=== PATIENT | female | born 1960 | race Caucasian/White ===

== ENCOUNTER 2019-03-31 17:09 | Emergency (ER) | payer OTHER, SELFPAY ==
[2019-03-31 17:21] VITALS: BP 138/62; PULSE 77; RESP 16; TEMP 36.4; O2SAT 100
--- NOTE | 2019-03-31 17:43 | ED.URI ---
HPI - URI/Sore Throat General Chief Complaint: Upper Respiratory Infection Stated Complaint: Back Pain Time Seen by Provider: 03/31/19 17:43 Source: patient Mode of arrival: ambulatory Limitations: no limitations History of Present Illness HPI Narrative: Carrie Rooney is a 58 yo female with a prior history of COPD, comes to the [facility] care with complaints of a sharp back pain when twisting, runny nose, and chills and general fatigue that started last night Related Data Home Medications Medication Instructions Recorded Confirmed albuterol sulfate 2 puff INHALATION QID PRN 03/31/19 03/31/19 Allergies Allergy/AdvReac Type Severity Reaction Status Date / Time No Known Allergies Allergy Verified 03/31/19 17:26 Review of Systems Review of Systems: Narrative: CONSTITUTIONAL: Denies fever, chills, sweats. Fatigue EYES: Denies visual changes, redness, discharge. ENT: Has rhinorrhea, has congestion, no sore throat, no otalgia. CARDIOVASCULAR: Denies chest pain, palpitations, edema. RESPIRATORY: Denies dyspnea, wheezing, cough GASTROINTESTINAL: Denies abdominal pain, nausea, vomiting, diarrhea. GENITOURINARY: Denies dysuria, hematuria, abnormal discharge SKIN: Denies rash or itching. MUSCULOSKELETAL: Has acute back pain, no joint pain, or no myalgia. NEUROLOGIC: Denies numbness, or focal weakness. PSYCHIATRIC: Denies anxiety or depression. PMFSH Past Medical History Medical History Anxiety Arthritis Carpal tunnel syndrome, left COPD (chronic obstructive pulmonary disease) Depression Eczema Hx of breast cancer Hx of migraines Peripheral neuropathy Pneumonia Psoriasis Surgical History Surgical History History of bladder surgery Bladder tied up x4 History of carpal tunnel release lt History of hysterectomy History of lumpectomy Hx of cardiac cath Hx of right knee surgery Social History Social History Smoking status: Current every day smoker Gender identity (if verbalized by the patient): Female Comments At time of signature, I agree with nursing past medical, surgical, social and family history. There is no relevant family history pertinent to the presenting complaint. Exam Narrative: Exam Narrative: GENERAL: This is a well-nourished, well-developed patient, in no moderate distress. HEAD: normocephalic, atraumatic. EYES: Sclera clear/white. Vision is grossly intact. EARS: External ears normal, auditory canals clear and without drainage, TMs normal without perforation. Hearing grossly intact. NOSE: External nose normal with nasal discharge, nares with redness, no rhinorrhea. THROAT: Mucous membranes moist, posterior pharynx erythema NECK: Neck supple, non-tender without lymphadenopathy, CARDIOVASCULAR: Regular rate and rhythm without murmurs, gallops, or rubs. RESPIRATORY: Coarse to auscultation. Breath sounds equal bilaterally. No wheezes, rales, or rhonchi. GASTROINTESTINAL: Abdomen soft, non-tender, SKIN: warm, intact with no suspicious lesions or rash, good texture and turgor. NEURO: awake, alert, and oriented to person, place and time. There were no obvious focal neurologic abnormalities. Steady gait EXTREMITIES: Normal range of motion. No edema. BACK: Nontender without deformity or crepitance. Pain between shoulder blades when moves left to right Course Course Emergency Course: Flu swab negative Started on Flexeril for back; Mucinex and Flonase for nasal drainage; ibuprofen for body aches Patient to rest and hydrate over the weekend Vital Signs Vital signs: Vital Signs Temperature 97.5 F L 03/31/19 17:21 Pulse Rate 77 03/31/19 17:21 Respiratory Rate 16 03/31/19 17:21 Blood Pressure 138/62 03/31/19 17:21 Pulse Oximetry 100 03/31/19 17:21 Temperature 97.5 F L 03/31/19 17:21 Pulse Rate 77 02/0
== END 2019-03-31 18:01 | disposition home or self-care (01) ==
PROVIDERS: Emergency Provider Nurse Practitioner; PCP Physician Assistant
DX: M54.6 Pain in thoracic spine (principal); J06.9 Acute upper respiratory infection, unspecified; M19.90 Unspecified osteoarthritis, unspecified site; J44.9 Chronic obstructive pulmonary disease, unspecified; Z85.3 Personal history of malignant neoplasm of breast; G62.9 Polyneuropathy, unspecified
CPT/HCPCS: 87804; 99213; G0463

== ENCOUNTER 2020-03-26 09:55 | Emergency (ER) | payer OTHER, SELFPAY ==
--- NOTE | 2020-03-26 10:08 | ED.URI ---
HPI - URI/Sore Throat General Chief Complaint: Upper Respiratory Infection Stated Complaint: Sinus Headache/Nausea/Cough/Copd Time Seen by Provider: 03/26/20 10:00 Source: patient and RN notes reviewed Mode of arrival: ambulatory Limitations: no limitations Related Data Home Medications Medication Instructions Recorded Confirmed albuterol sulfate 2 puff INHALATION QID PRN 03/31/19 03/31/19 Allergies Allergy/AdvReac Type Severity Reaction Status Date / Time No Known Allergies Allergy Verified 03/31/19 17:26 Review of Systems Review of Systems: All systems reviewed & are unremarkable except as noted in HPI and below (10 point system review) [facility] Past Medical History Medical History Anxiety Arthritis Carpal tunnel syndrome, left COPD (chronic obstructive pulmonary disease) Depression Eczema Hx of breast cancer Hx of migraines Peripheral neuropathy Pneumonia Psoriasis Surgical History Surgical History History of bladder surgery Bladder tied up x4 History of carpal tunnel release lt History of hysterectomy History of lumpectomy Hx of cardiac cath Hx of right knee surgery Social History Social History Smoking status: Current every day smoker Gender identity (if verbalized by the patient): Female Exam Narrative: Exam Narrative: GENERAL: This is a well-nourished, well-developed patient, in no apparent distress. HEAD: normocephalic, atraumatic. EYES: PERRL. Sclera clear/white. Vision is grossly intact. EARS: External ears normal, auditory canals clear and without drainage, TMs normal without perforation. Hearing grossly intact. NOSE: External nose normal with no obvious nasal discharge, nares without redness, no rhinorrhea. THROAT: Mucous membranes moist, posterior pharynx clear. NECK: Neck supple, non-tender without lymphadenopathy, masses or thyromegaly. CARDIOVASCULAR: Regular rate and rhythm without murmurs, gallops, or rubs. RESPIRATORY: Clear to auscultation. Breath sounds equal bilaterally. No wheezes, rales, or rhonchi. GASTROINTESTINAL: Abdomen soft, non-tender, nondistended. Bowel sounds are active. No hepato-splenomegaly, or palpable masses. No guarding. SKIN: warm, intact with no suspicious lesions or rash, good texture and turgor. NEURO: awake, alert, and oriented to person, place and time. There were no obvious focal neurologic abnormalities. Steady gait EXTREMITIES: Normal range of motion. No edema. No calf tenderness. Negative Homans sign bilaterally. BACK: Nontender without deformity or crepitance. No flank tenderness. MDM - URI/Sore Throat Differential Diagnosis Differential diagnosis: Likely upper respiratory infection, sinusitis, influenza and pharyngitis Discharge Plan Discharge Patient Disposition: Home, Self-Care Condition: Stable Instructions: Antibiotic Form Prescriptions: No Action albuterol sulfate 90 mcg/actuation Hfa Aerosol Inhaler 2 puff INHALATION QID PRN (Reason: Shortness Of Breath) RF: 0 pseudoephedrine-guaifenesin [Mucinex D] 60-600 mg tablet extended release 12 hr 1 tablet PO BID PRN (Reason: cold symptoms) Qty: 30 RF: 0 QNASL 80 mcg/actuation HFA aerosol inhaler 2 spray NASAL DAILY Qty: 10.6 RF: 0 cyclobenzaprine 10 mg tablet 10 mg PO TID PRN (Reason: muscle spasm) Qty: 20 RF: 0 Follow-up/Referrals: UNKNOWN,DOCTOR [Primary Care Provider] -
--- NOTE | 2020-03-26 10:08 | PC.NURSE ---
1st attempt to call, no answer.
--- NOTE | 2020-03-26 10:10 | PC.NURSE ---
2nd attempt to contact, no answer.
== END 2020-03-26 10:14 | disposition left against medical advice (07) ==
DX: Z53.21 Procedure and treatment not carried out due to patient leaving prior to being seen by health care provider (principal)
CPT/HCPCS: 99199

== ENCOUNTER 2021-09-20 17:01 | Emergency (ER) | payer OTHER, SELFPAY ==
--- NOTE | ~2021-09-20 | XR_ITS ---
EXAM: XR foot RT min 3V DATE: 09/20/2021 17:45 HISTORY: rt dorsal foot pain s/p hitting on chair this morn . COMPARISON: None available. FINDINGS: Decreased mineralization. No fracture or dislocation. No lytic or blastic lesion. Joint sp aces are maintained. No erosion or periosteal change. Soft tissues within normal limits. IMPRESSION: No acute osseous finding in the right foot. Reviewed, dictated and finalized at location K.
--- NOTE | 2021-09-20 17:03 | ED.LOWEXIN ---
HPI - Extremity Injury (Lower) General Stated Complaint: right foot pain Time Seen by Provider: 09/20/21 17:03 Source: patient Mode of arrival: ambulatory Limitations: no limitations History of Present Illness HPI Narrative: Ms. Rooney is a 61-year-old female patient presenting to the clinic today with complaints of right foot pain. She reports that she was running with her puppy this morning and hit her foot against a heavy recliner. Reports pain to the top of her foot. Rates the pain a 10 out of 10 currently and is unable to walk on her foot. She has localized swelling to the dorsal foot. Related Data Home Medications Medication Instructions Recorded Confirmed albuterol sulfate 90 mcg/actuation 2 puff inhalation QID PRN 03/31/19 03/31/19 aerosol inhaler Shortness Of Breath amlodipine 5 mg tablet mg 09/20/21 isosorbide mononitrate 30 mg mg PO 09/20/21 tablet,extended release 24 hr nicotine 21 mg/24 hr daily 09/20/21 transdermal patch nitroglycerin 0.3 mg sublingual mg 09/20/21 tablet Allergies Allergy/AdvReac Type Severity Reaction Status Date / Time No Known Allergies Allergy Verified 03/31/19 17:26 Review of Systems Review of Systems: Pertinent positives per HPI. Patient denies any fever, chills, rash, headache, visual changes, dizziness, cough, runny nose, sore throat, shortness of breath, chest pain, palpitations, nausea, vomiting, diarrhea, constipation, abdominal pain, or any urinary issues. [facility] Past Medical History Medical History (Updated 09/20/21 @ 18:04 by Henrik Vásquez APRN) Anxiety Arthritis Carpal tunnel syndrome, left COPD (chronic obstructive pulmonary disease) Depression Eczema Hx of breast cancer Hx of migraines Peripheral neuropathy Pneumonia Psoriasis Surgical History Surgical History History of bladder surgery Bladder tied up x4 History of carpal tunnel release lt History of hysterectomy History of lumpectomy Hx of cardiac cath Hx of right knee surgery Social History Social History Smoking status: Current every day smoker Gender identity (if verbalized by the patient): Female Comments At the time of my signature, I reviewed and agree with the nursing past medical, surgical, social, and family history. There is no relevant family history pertinent to the patient complaint. Exam Narrative: General: Well-developed, well nourished, in no apparent distress Head: Normocephalic, atraumatic. Cardio: Regular rate and rhythm, s1 and s2 normal, no murmur appreciated. Resp: Clear to auscultation bilaterally, no rhonchi, rales, wheezing or rubs. Musculoskeletal: No deformity, swelling to the proximal dorsal foot, tender to palpation, pain with flexion and extension of her foot and wiggling her toes, grossly normal range of motion, muscle strength strong and equal, peripheral pulse strong, no cyanosis, normal gait and station Course Course Emergency Course: Portions of this record may have been created with voice recognition software. Level of Care: Express Care Visit Vital Signs Vital signs: Vital signs reviewed MDM - Extremity Injury (Lower) MDM Narrative Medical decision making narrative: At the time of visit patient is resting comfortably on the exam table. X-ray was performed and was negative for any fracture or malalignment of the right foot. I suspect the patient has a foot contusion/soft tissue injury. Supportive measures were discussed with the patient and she voiced understanding of discharge instructions and agrees to the treatment plan. Differential Diagnosis Differential diagnosis: Likely other (Foot fracture, foot contusion, foot soft tissue injury) Imaging Data Attestation: I personally reviewed and interpreted this imaging study as follows: My impression: Negative for fracture or malalignment of th
[2021-09-20 17:13] VITALS: BP 131/69; PULSE 78; RESP 18; TEMP 36.2; O2SAT 100
== END 2021-09-20 18:06 | disposition home or self-care (01) ==
PROVIDERS: Emergency Provider Nurse Practitioner Family
DX: S90.31XA Contusion of right foot, initial encounter (principal); W22.03XA Walked into furniture, initial encounter; M19.90 Unspecified osteoarthritis, unspecified site; J44.9 Chronic obstructive pulmonary disease, unspecified; G62.9 Polyneuropathy, unspecified; Z85.3 Personal history of malignant neoplasm of breast; F17.200 Nicotine dependence, unspecified, uncomplicated
CPT/HCPCS: 73630; 99213; G0463

== ENCOUNTER 2021-11-10 10:33 | Emergency (ER) | payer OTHER, SELFPAY ==
[2021-11-10 10:43] VITALS: BP 154/67; PULSE 63; RESP 16; TEMP 36.8; O2SAT 99
--- NOTE | 2021-11-10 10:55 | ED.NAVMDI ---
HPI - Nausea/Vomiting/Diarrhea General Chief complaint: Nausea/Vomiting/Diarrhea Stated complaint: Mcintyre/n/v/d Time Seen by Provider: 11/10/21 10:55 Source: patient, RN notes reviewed and old records reviewed Mode of arrival: ambulatory Limitations: no limitations History of Present Illness HPI Narrative: 61-year-old female presents to the [facility] with complaints of headache, nausea, vomiting and diarrhea as well as epigastric and right upper quadrant abdominal pain since Tuesday. Related Data Home Medications Medication Instructions Recorded Confirmed albuterol sulfate 90 mcg/actuation 2 puff inhalation QID PRN 03/31/19 11/10/21 aerosol inhaler Shortness Of Breath amlodipine 5 mg tablet 5 mg PO DAILY 09/20/21 11/10/21 isosorbide mononitrate 30 mg 30 mg PO DAILY 09/20/21 11/10/21 tablet,extended release 24 hr nicotine 21 mg/24 hr daily 21 mg transdermal DAILY 09/20/21 11/10/21 transdermal patch nitroglycerin 0.3 mg sublingual 0.3 mg sublingual PRN PRN Chest 09/20/21 11/10/21 tablet Pain fluticasone propionate 50 2 spray intranasal DAILY 11/10/21 11/10/21 mcg/actuation nasal spray,suspension Allergies Allergy/AdvReac Type Severity Reaction Status Date / Time No Known Allergies Allergy Verified 11/10/21 10:56 Review of Systems Review of Systems: All systems reviewed & are unremarkable except as noted in HPI and below Constitutional: Constitutional: Reports no additional constitutional complaints, Denies chills and Denies fever(s) Eyes: Eyes: Reports no additional eye complaints ENT: Reports system reviewed and no additional complaints, except as documented Cardiovascular: Cardiovascular: Reports no additional cardiovascular complaints Respiratory: Respiratory: Reports no additional respiratory complaints Gastrointestinal: Gastrointestinal: Reports as per HPI, Reports abdominal pain, Reports diarrhea, Reports nausea and Reports vomiting Musculoskeletal: Musculoskeletal: Reports no additional musculoskeletal complaints Integumentary/Breasts: Skin/Breast: Reports system reviewed and no additional complaints, except as docu Neurologic: Reports system reviewed and no additional complaints, except as documented Psychiatric: Psychiatric: Reports no additional psychiatric complaints Allergic/Immunologic: Allergic/Immunologic: Reports no additional allergic/immunologic complaints PMFSH Past Medical History Medical History Anxiety Arthritis Carpal tunnel syndrome, left COPD (chronic obstructive pulmonary disease) Depression Eczema Hx of breast cancer Hx of migraines Peripheral neuropathy Pneumonia Psoriasis Surgical History Surgical History History of bladder surgery Bladder tied up x4 History of carpal tunnel release lt History of hysterectomy History of lumpectomy Hx of cardiac cath Hx of right knee surgery Social History Social History Smoking status: Current every day smoker Gender identity (if verbalized by the patient): Female Comments At the time of my signature, I reviewed and agree with the nursing past medical, surgical, social, and family history. There is no relevant family history pertinent to the patient complaint. Exam Const: General: healthy appearing, no acute distress and alert Nutritional Appearance: well nourished Orientation/consciousness: patient oriented x3 Limitations: no limitations HENMT: Head: normal to inspection Ears: external ears normal Eyes: General: appearance normal, both eyes and all related structures Pupils: Equal, round and reactive pupils present Neck: Neck: normal visual inspection, no lymphadenopathy and no meningeal signs Chest: Chest palpation & inspection: normal inspection of the chest Resp: Effort & Inspection: normal respiratory effort and no use of accesso
== END 2021-11-10 11:10 | disposition short-term general hospital (02) ==
PROVIDERS: Emergency Provider Nurse Practitioner
DX: R10.11 Right upper quadrant pain (principal); R10.13 Epigastric pain; M19.90 Unspecified osteoarthritis, unspecified site; J44.9 Chronic obstructive pulmonary disease, unspecified; G62.9 Polyneuropathy, unspecified; L40.9 Psoriasis, unspecified; Z85.3 Personal history of malignant neoplasm of breast
CPT/HCPCS: 99212; G0463

== ENCOUNTER 2021-11-10 11:24 | Emergency (ER) | payer OTHER, SELFPAY ==
--- NOTE | ~2021-11-10 | CT_ITS ---
EXAMINATION: CT abdomen pelvis w con DATE: 11/10/2021 14:24 INDICATION: Epigastric abdominal pain. TECHNIQUE: Computed tomography (CT) of the abdomen and pelvis was performed with 100 mL Omnipaque 350 intravenous contrast. Automated exposure control and iterative reconstruction technique were employe d. The dose-length product was 296.98 mGy-cm. COMPARISON: Ultrasound abdomen 11/10/2021 FINDINGS: The visualized portions of the lung bases demonstrate mild atelectasis. No pleural effusion . The heart size is normal. No pericardial effusion. There is a small sliding hiatal hernia. The live r, gallbladder, spleen, pancreas, and adrenal glands are normal. There is cortical thinning of the ki dneys. There is a 2.5 cm cyst in right kidney. There are no dilated loops of bowel. The appendix is n ormal. There are no pathologically enlarged lymph nodes. There is no free intraperitoneal fluid. Ther e is severe lumbar spondylosis. IMPRESSION: 1. Small sliding hiatal hernia. Reviewed, dictated and finalized at location A.
--- NOTE | ~2021-11-10 | US_ITS ---
US right upper quadrant DATE: 11/10/2021 13:07 INDICATION: Abdominal pain for 6 months TECHNIQUE: Real-time imaging of liver, pancreas, gallbladder COMPARISON: None FINDINGS: No hepatic or pancreatic space-occupying mass lesion. Normal hepatopedal portal venous flow direction. No gallstones or gallbladder wall thickening or abnormal pericholecystic fluid collection. Negative s onographic Fernandez's sign. The common bile duct measures 3.4 mm, within normal range. IMPRESSION: Negative examination Reviewed, dictated and finalized at Location [facility]. Reviewed, dictated and finalized at location B. IMPRESSION: Negative examination
[2021-11-10 11:26] VITALS: BP 148/81; PULSE 62; RESP 16; TEMP 36.4; O2SAT 100
[2021-11-10 11:53] LABS: Basophils Absolute Auto 0.1 K/mm3 (0.0-0.1); Basophils Percent Auto 0.4 % (0.2-1.2); Eosinophils Absolute Auto 0.3 K/mm3 (0-0.3); Eosinophils Percent Auto 2.9 % (0-4.4); Hematocrit 43.6 % (37.0-47.0); Hemoglobin 14.5 g/dL (12.0-15.0); Immature Granulocyte Absolute 0.04 K/mm3 (0.00-0.031); Immature Granulocyte Percent A 0.3 % (0-0.5); Lymphocytes Absolute Auto 4.02 K/mm3 (0.9-3.2); Lymphocytes Percent Auto 34.7 % (18.3-44.2); Mean Corpuscular HGB Conc 33.3 g/dl (32-36); Mean Corpuscular Volume 93.4 fl (80-100); Mean Platelet Volume 10.3 fl (7.4-10.4); Monocytes Absolute Auto 0.9 K/mm3 (0.1-0.6); Monocytes Percent Auto 7.3 % (2.6-8.5); Neutrophils Absolute Auto 6.3 K/mm3 (1.3-6.7); Neutrophils Percent Auto 54.4 % (45.5-73.1); Platelet Count Result 290 k/mm3 (150-375); Red Blood Count 4.67 M/mm3 (4.2-5.4); Red Cell Distribution Width 12.2 % (11.5-14.5); White Blood Count 11.6 K/mm3 (4.5-10.0)
[2021-11-10 12:03] LABS: Appearance Urine Clear (Clear); Bilirubin Urine Negative (Negative); Blood Urine Negative (Negative); Color Urine Yellow (Yellow); Glucose Urine UA Negative (Negative); Ketones Urine Negative (Negative); Leukocyte Esterase Ur Negative LEU/UL (Negative); Nitrate Urine Negative (Negative); Protein Urine Negative (Negative); Specific Grav Ur 1.015 (1.001-1.035); Urobilinogen Urine 0.2 mg/dL (<2.0)
[2021-11-10 12:06] LABS: Add Urine Microscopic? NO
[2021-11-10 12:06] LABS: Alanine Aminotransferase 21 U/L (6-35); Albumin Level 4.9 g/dL (3.5-5.1); Alkaline Phosphatase 127 U/L (38-126); Anion Gap 11 mmol/L (8-16); Aspartate Amino Transferase 26 U/L (14-36); Bilirubin,Total 0.3 mg/dL (0.2-1.3); Blood Urea Nitrogen 20 mg/dL (7-17); Calcium 9.4 mg/dL (8.4-10.2); Carbon Dioxide 22 mmol/L (22-30); Chloride 108 mmol/L (98-107); Estimated CRCL calculation 61 ml/min; Estimated Glomerular Filt Rate > 60; Glucose 103 mg/dL (65-110); Lipase 41 U/L (23-300); Potassium 4.1 mmol/L (3.4-5.0); Sodium 141 mmol/L (137-145)
--- NOTE | 2021-11-10 12:55 | ED.ABDPAIN ---
HPI - Abdominal Pain General Chief Complaint: Abdominal Pain Stated Complaint: epigastric pain Time Seen by Provider: 11/10/21 11:59 History of Present Illness HPI narrative: Patient is a 61-year-old female who presents ER with epigastric and right upper quadrant abdominal pain. Patient reports symptoms of been intermittent over the last 6 months and she noticed that it is worse if her grandchildren bumped into her. She reports however over the last 2 to 3 days she has had increase in the intensity of the pain. There is no radiation. Its associated with regular diarrhea that is free of blood. She also has had nausea and vomiting. No fevers or chills or sweats. She has found no alleviating factors. Patient is without chest pain or chest pressure. No urinary symptoms. Related Data Home Medications Medication Instructions Recorded Confirmed albuterol sulfate 90 mcg/actuation 2 puff inhalation QID PRN 03/31/19 11/10/21 aerosol inhaler Shortness Of Breath amlodipine 5 mg tablet 5 mg PO DAILY 09/20/21 11/10/21 isosorbide mononitrate 30 mg 30 mg PO DAILY 09/20/21 11/10/21 tablet,extended release 24 hr nicotine 21 mg/24 hr daily 21 mg transdermal DAILY 09/20/21 11/10/21 transdermal patch nitroglycerin 0.3 mg sublingual 0.3 mg sublingual PRN PRN Chest 09/20/21 11/10/21 tablet Pain fluticasone propionate 50 2 spray intranasal DAILY 11/10/21 11/10/21 mcg/actuation nasal spray,suspension Allergies Allergy/AdvReac Type Severity Reaction Status Date / Time No Known Allergies Allergy Verified 11/10/21 10:56 Review of Systems Review of Systems: All systems reviewed & are unremarkable except as noted in HPI and below Constitutional: Constitutional: Denies chills, Denies fatigue and Denies fever(s) ENT: Reports nasal congestion and Denies sore throat Cardiovascular: Cardiovascular: Denies chest pain, Denies rapid heart rate and Denies radiating jaw, neck or arm pain Respiratory: Respiratory: Denies cough and Denies dyspnea Gastrointestinal: Gastrointestinal: Reports abdominal pain, Reports diarrhea, Reports nausea and Reports vomiting Genitourinary: Genitourinary: Denies nocturia and Denies dysuria [facility] Past Medical History Medical History (Updated 11/10/21 @ 15:28 by Thiago Anders MD) Anxiety Arthritis Carpal tunnel syndrome, left COPD (chronic obstructive pulmonary disease) Depression Eczema Hx of breast cancer Hx of migraines Peripheral neuropathy Pneumonia Psoriasis Surgical History Surgical History History of bladder surgery Bladder tied up x4 History of carpal tunnel release lt History of hysterectomy History of lumpectomy Hx of cardiac cath Hx of right knee surgery Social History Social History Smoking status: Current every day smoker Gender identity (if verbalized by the patient): Female Exam Narrative: GENERAL: Well-appearing, well-nourished, and in no acute distress. HEAD: Normocephalic, atraumatic. NECK: Supple. CHEST: Clear to auscultation. No respiratory distress. HEART: Regular rate and rhythm. Normal peripheral pulses. ABDOMEN: Soft, mild tenderness in the epigastrium and right upper quadrant with voluntary guarding, nondistended, normal active bowel sounds. EXTREMITIES: Normal range of motion. No edema. SKIN: Warm, dry, no rash. NEURO: Alert and oriented x3. PSYCH: Normal mood and affect. Course Course Emergency Course: Patient resting comfortably. Informed of results. Patient still demonstrated pain in the right upper quadrant so a CT imaging was obtained and unremarkable. Recommend follow-up with PCP. Vital Signs Vital signs: Vital Signs Temperature 97.6 F 11/10/21 11:26 Pulse Rate 62 11/10/21 11:26 Respiratory Rate 16 11/10/21 11:26 Blood Pressure 148/81 H 11/10/21 11:26 Pulse Oximetry 100 11/10/21 11:26
[2021-11-10] MEDS: SODIUM CHLORIDE 0.9% IV 1,000 ML 999 ML IV CONT (13:01)
[2021-11-10] MEDS: ONDANSETRON INJ 4 MG/2 ML VIAL IV PUSH (13:02)
[2021-11-10 14:33] VITALS: BP 133/59; PULSE 54; RESP 14; O2SAT 99
[2021-11-10 15:48] VITALS: BP 139/72; PULSE 56; RESP 14; O2SAT 100
== END 2021-11-10 15:49 | disposition home or self-care (01) ==
PROVIDERS: Emergency Medicine; Emergency Provider Emergency Medicine; PCP Physician Assistant
DX: R10.11 Right upper quadrant pain (principal); J44.9 Chronic obstructive pulmonary disease, unspecified; M19.90 Unspecified osteoarthritis, unspecified site; G62.9 Polyneuropathy, unspecified; Z85.3 Personal history of malignant neoplasm of breast; Z87.01 Personal history of pneumonia (recurrent); Z90.710 Acquired absence of both cervix and uterus; F17.200 Nicotine dependence, unspecified, uncomplicated; K44.9 Diaphragmatic hernia without obstruction or gangrene
CPT/HCPCS: 36415; 74177; 76705; 80053; 81003; 83690; 85025; 96361; 96374; 99284; J2405; J7030; Q9967

== ENCOUNTER 2022-01-13 14:55 | Emergency (ER) | payer OTHER, SELFPAY ==
[2022-01-13 15:05] VITALS: BP 123/75; PULSE 76; RESP 20; TEMP 36.2; O2SAT 99
--- NOTE | 2022-01-13 15:17 | ED.URI ---
HPI - URI/Sore Throat General Chief Complaint: Upper Respiratory Infection Stated Complaint: uri Time Seen by Provider: 01/13/22 15:15 Source: patient and RN notes reviewed Mode of arrival: ambulatory Limitations: no limitations History of Present Illness HPI Narrative: 61-year-old female presents with concern for sinus congestion, pressure, runny nose, diarrhea, cough that started yesterday. She reports chills and sweats. She denies known sick contacts. Reports she is taking allergy medicine MD elicited complaint: cough and sore throat Related Data Home Medications Medication Instructions Recorded Confirmed albuterol sulfate 90 mcg/actuation 2 puff inhalation QID PRN 03/31/19 11/10/21 aerosol inhaler Shortness Of Breath amlodipine 5 mg tablet 5 mg PO DAILY 09/20/21 11/10/21 isosorbide mononitrate 30 mg 30 mg PO DAILY 09/20/21 11/10/21 tablet,extended release 24 hr nicotine 21 mg/24 hr daily 21 mg transdermal DAILY 09/20/21 11/10/21 transdermal patch nitroglycerin 0.3 mg sublingual 0.3 mg sublingual PRN PRN Chest 09/20/21 11/10/21 tablet Pain fluticasone propionate 50 2 spray intranasal DAILY 11/10/21 11/10/21 mcg/actuation nasal spray,suspension Allergies Allergy/AdvReac Type Severity Reaction Status Date / Time No Known Allergies Allergy Verified 11/10/21 10:56 Review of Systems Review of Systems: CONSTITUTIONAL: Reports malaise, chills, sweats EYES: Denies visual changes, redness, or discharge. ENT: Reports rhinorrhea, congestion. Denies sinus pain, otalgia and sore throat. CARDIOVASCULAR: Denies chest pain, palpitations, or edema. RESPIRATORY: Reports cough. Denies dyspnea. GASTROINTESTINAL: Denies abdominal pain, nausea, vomiting, diarrhea SKIN: Denies rash or itching. MUSCULOSKELETAL: Denies myalgia. NEUROLOGIC: Denies headache. All systems reviewed & are unremarkable except as noted in HPI and below PMFSH Past Medical History Medical History (Updated 01/13/22 @ 15:23 by Carmencita Burks NP) Anxiety Arthritis Carpal tunnel syndrome, left COPD (chronic obstructive pulmonary disease) Depression Eczema Hx of breast cancer Hx of migraines Peripheral neuropathy Pneumonia Psoriasis Surgical History Surgical History History of bladder surgery Bladder tied up x4 History of carpal tunnel release lt History of hysterectomy History of lumpectomy Hx of cardiac cath Hx of right knee surgery Social History Social History Smoking status: Current every day smoker Gender identity (if verbalized by the patient): Female Comments At time of signature, agree with nursing past medical, surgical, social and family history. There is no relevant family history pertinent to the presenting complaint Exam Narrative: GENERAL: Well-appearing, well-nourished, and in no acute distress. HEAD: Normocephalic EYES: PERRLA, conjunctivae clear ENT: Nares clear, turbinates edematous and erythematous, clear discharge. Mucous membranes moist. TM pearly mcclain with dull light reflex bilaterally; no tragal tenderness. Oropharynx not erythematous without lesions. Tonsils not enlarged and without exudate, no drooling, no hoarseness, no trismus, uvula midline. NECK: Supple. No lymphadenopathy CHEST: Clear to auscultation, breath sounds equal. No wheezing, rhonchi, rales, or stridor. No respiratory distress, speaks in full sentences. HEART: Regular rate and rhythm. No murmur heard. SKIN: Warm, dry, no rash. NEURO: Alert and oriented x3. PSYCH: Normal mood and affect Course Course Emergency Course: Patient is aware of diagnosis, understands and agrees to treatment plan. Anticipatory guidance given. Patient agrees to follow-up as directed and is aware of reasons to seek care at the emergency department. Portions of this record may have been created with voice recognition software Level of Care: Expr
== END 2022-01-13 15:28 | disposition home or self-care (01) ==
PROVIDERS: Emergency Provider Nurse Practitioner
DX: J11.1 Influenza due to unidentified influenza virus with other respiratory manifestations (principal); Z20.822 Contact with and (suspected) exposure to COVID-19; J44.9 Chronic obstructive pulmonary disease, unspecified; M19.90 Unspecified osteoarthritis, unspecified site; Z85.3 Personal history of malignant neoplasm of breast; F17.290 Nicotine dependence, other tobacco product, uncomplicated; G62.9 Polyneuropathy, unspecified; L40.9 Psoriasis, unspecified
CPT/HCPCS: 87426; 87804; 99213; C9803; G0463

== ENCOUNTER 2022-08-17 13:37 | Emergency (ER) | payer OTHER, SELFPAY ==
--- NOTE | ~2022-08-17 | XR_ITS ---
EXAM: XR shoulder RT min 2V DATE: 08/17/2022 14:14 HISTORY: unable to lift rt arm at shoulder no injury . COMPARISON: None available. FINDINGS: Normal mineralization. No fracture or dislocation. No lytic or blastic lesion. Moderate AC joint and mild glenohumeral joint osteoarthritis. No erosion or periosteal change. Soft tissues with in normal limits. IMPRESSION: No acute osseous finding in the right shoulder. Reviewed, dictated and finalized at location [facility].
[2022-08-17 13:47] VITALS: BP 134/75; PULSE 67; RESP 16; TEMP 36.9; O2SAT 99
--- NOTE | 2022-08-17 14:21 | ED.GENADULT ---
HPI - General Adult General Chief complaint: Extremity Injury, Upper Stated complaint: Right Arm Pain Source: patient, RN notes reviewed and old records reviewed Mode of arrival: ambulatory Limitations: no limitations History of Present Illness HPI narrative: 62 year old female who [facility] to [facility] care with complaints of 2 plus weeks of right arm pain with no known injury. Patient demonstrates limited mobility noted to right arm unable to raise arm upward and unable to put her arm behind her back, equal hand monument carver noted. Patient reports no tingling or numbness to her right arm with strong pulses to right arm.Patient verbalizes some pain to her posterior shoulder region radiating to anterior shoulder and down mid humerus region. MD complaint: right arm pain with limited mobility Onset (ago): week(s) (2weeks) Location: right and upper extremity (shoulder and arm) Severity scale (1-10): 10 Treatments prior to arrival: NSAID and other (Tylenol) Related Data Home Medications Medication Instructions Recorded Confirmed albuterol sulfate 90 mcg/actuation 2 puff inhalation QID PRN 03/31/19 11/10/21 aerosol inhaler Shortness Of Breath amlodipine 5 mg tablet 5 mg PO DAILY 09/20/21 11/10/21 isosorbide mononitrate 30 mg 30 mg PO DAILY 09/20/21 11/10/21 tablet,extended release 24 hr nicotine 21 mg/24 hr daily 21 mg transdermal DAILY 09/20/21 11/10/21 transdermal patch nitroglycerin 0.3 mg sublingual 0.3 mg sublingual PRN PRN Chest 09/20/21 11/10/21 tablet Pain fluticasone propionate 50 2 spray intranasal DAILY 11/10/21 11/10/21 mcg/actuation nasal spray,suspension ergocalciferol (vitamin D2) 1,250 08/17/22 08/17/22 mcg (50,000 unit) capsule Allergies Allergy/AdvReac Type Severity Reaction Status Date / Time No Known Allergies Allergy Verified 08/17/22 13:49 Review of Systems Review of Systems: CONSTITUTIONAL: Denies fever, chills, or sweats. EYES: Denies visual changes, redness, or discharge. ENT: Denies rhinorrhea, congestion, sore throat, or otalgia. CARDIOVASCULAR: Denies chest pain, palpitations, or edema. RESPIRATORY: Denies cough or dyspnea. GASTROINTESTINAL: Denies abdominal pain, nausea, vomiting, or diarrhea. GENITOURINARY: Denies dysuria or hematuria. SKIN: Denies rash or itching. MUSCULOSKELETAL: Denies back pain, positive for right arm and right shoulder pain, or myalgia. NEUROLOGIC: Denies headache, numbness, or weakness. PSYCHIATRIC: Denies anxiety or depression. All systems reviewed & are unremarkable except as noted in HPI and below PMFSH Past Medical History Medical History (Updated 08/18/22 @ 19:50 by Iveth Pendleton NP) Anxiety Arthritis Carpal tunnel syndrome, left COPD (chronic obstructive pulmonary disease) Depression Eczema Hx of breast cancer Hx of migraines Peripheral neuropathy Pneumonia Psoriasis Surgical History Surgical History History of bladder surgery Bladder tied up x4 History of carpal tunnel release lt History of hysterectomy History of lumpectomy Hx of cardiac cath Hx of right knee surgery Social History Social History Smoking status: Current every day smoker Gender identity (if verbalized by the patient): Female Comments At time of signature, agree with nursing past medical, surgical, social and family history. There is no relevant family history pertinent to the presenting complaint Exam Narrative: GENERAL: Well-appearing, well-nourished, and in no acute distress. HEAD: Normocephalic, atraumatic. EYES: PERRLA and EOMI. ENT: Nares clear, no rhinorrhea or epistaxis. Mucous membranes moist.TM's normal with good light reflex, throat pink with no lesions or swelling NECK: Supple.no lymphadenopathy CHEST: Clear to auscultation. No respiratory distress.SAO2 99% on room air HEART: Regular rate and rhythm. No murmur heard. Normal per
== END 2022-08-17 14:48 | disposition home or self-care (01) ==
PROVIDERS: Emergency Provider Registered Nurse; PCP Physician Assistant
DX: M25.511 Pain in right shoulder (principal); J44.9 Chronic obstructive pulmonary disease, unspecified; M19.90 Unspecified osteoarthritis, unspecified site; G62.9 Polyneuropathy, unspecified; L40.9 Psoriasis, unspecified; Z85.3 Personal history of malignant neoplasm of breast
CPT/HCPCS: 73030; 99213; G0463

== ENCOUNTER 2022-09-26 17:47 | Emergency (ER) | payer OTHER, SELFPAY ==
--- NOTE | ~2022-09-26 | XR_ITS ---
Clinical Indication: Cough PA and lateral views of the chest: Comparison: 01/09/2019 Findings: The lungs are clear, without evidence of focal consolidation or pleural effusion. Cardiome diastinal silhouette is within normal limits. Bones and soft tissues are unremarkable. Impression: Normal chest. Reviewed, dictated and finalized at [facility]. Impression: Normal chest.
[2022-09-26 17:56] VITALS: BP 156/67; PULSE 64; RESP 16; TEMP 36.3; O2SAT 100
--- NOTE | 2022-09-26 18:19 | ED.EAR ---
HPI - Ear Problem General Chief complaint: Ear Stated complaint: Ears/Eyes Irritation Time Seen by Provider: 09/26/22 18:19 Source: patient, RN notes reviewed and old records reviewed Mode of arrival: ambulatory Limitations: no limitations History of Present Illness HPI Narrative: 62 year old female who presents to [facility] care with complaints of ear pain with right side worse than left, ringing in ears, with headaches, fatigue, green mucous and cough since yesterday. Patient reports that she feels very fatigued Patient reports that she is trying to quit smoking has been on nicotine patch since past Tuesday has smoked cigarettes for many years. Patient reports that shhe has been using nasal spray and also cough syrup for her symptoms reports no fevers. Patient states that cough is worse at night, coarse breath sounds noted to right lung ferrer. MD Complaint: ear pain and other Location: bilateral Discharge from ear: Reports no Treatment prior to arrival: other (cough syrup and nasal spray) Related Data Home Medications Medication Instructions Recorded Confirmed albuterol sulfate 90 mcg/actuation 2 puff inhalation QID PRN 03/31/19 11/10/21 aerosol inhaler Shortness Of Breath amlodipine 5 mg tablet 5 mg PO DAILY 09/20/21 11/10/21 isosorbide mononitrate 30 mg 30 mg PO DAILY 09/20/21 11/10/21 tablet,extended release 24 hr nicotine 21 mg/24 hr daily 21 mg transdermal DAILY 09/20/21 11/10/21 transdermal patch nitroglycerin 0.3 mg sublingual 0.3 mg sublingual PRN PRN Chest 09/20/21 11/10/21 tablet Pain ergocalciferol (vitamin D2) 1,250 08/17/22 08/17/22 mcg (50,000 unit) capsule Allergies Allergy/AdvReac Type Severity Reaction Status Date / Time No Known Allergies Allergy Verified 09/26/22 18:02 Review of Systems Review of Systems: CONSTITUTIONAL: Denies malaise, chills, sweats, or fever. EYES: Denies visual changes, redness, or discharge. ENT: Reports rhinorrhea, congestion, sinus pain,bilateral otalgia and sore throat. CARDIOVASCULAR: Denies chest pain, palpitations, or edema. RESPIRATORY: Reports cough.? Denies acute dyspnea. GASTROINTESTINAL: Denies abdominal pain, nausea, vomiting, diarrhea SKIN: Denies rash or itching. MUSCULOSKELETAL: Denies myalgia. NEUROLOGIC: Reports headache. All systems reviewed & are unremarkable except as noted in HPI and below PMFSH Past Medical History Medical History (Updated 09/27/22 @ 00:00 by Background Daemon) Anxiety Arthritis Carpal tunnel syndrome, left COPD (chronic obstructive pulmonary disease) Depression Eczema Hx of breast cancer Hx of migraines Peripheral neuropathy Pneumonia Psoriasis Surgical History Surgical History History of bladder surgery Bladder tied up x4 History of carpal tunnel release lt History of hysterectomy History of lumpectomy Hx of cardiac cath Hx of right knee surgery Social History Social History Smoking status: Current every day smoker Gender identity (if verbalized by the patient): Female Comments At time of signature, agree with nursing past medical, surgical, social and family history. There is no relevant family history pertinent to the presenting complaint Exam Narrative: GENERAL: Well-appearing, well-nourished, and in no acute distress. HEAD: Normocephalic EYES: PERRLA, conjunctivae clear ENT: Nares clear, turbinates edematous and erythematous, clear discharge. Mucous membranes moist. TM pearly mcclain with dull light reflex bilaterally; no tragal tenderness. Oropharynx erythematous without lesions. Tonsils not enlarged and without exudate, no drooling, no hoarseness, no trismus, uvula midline.post nasal drainage NECK: Supple. No lymphadenopathy CHEST: Coarse breath sounds right base auscultation, breath sounds equal. No wheezing, rhonchi, rales, or stridor. No respiratory
== END 2022-09-26 19:53 | disposition home or self-care (01) ==
PROVIDERS: Emergency Provider Registered Nurse; PCP Physician Assistant
DX: J06.9 Acute upper respiratory infection, unspecified (principal); J44.9 Chronic obstructive pulmonary disease, unspecified; F17.200 Nicotine dependence, unspecified, uncomplicated; Z85.3 Personal history of malignant neoplasm of breast; Z20.822 Contact with and (suspected) exposure to COVID-19
CPT/HCPCS: 71046; 87426; 99213; C9803; G0463

== ENCOUNTER 2022-11-13 18:50 | Emergency (ER) | payer OTHER, SELFPAY ==
--- NOTE | ~2022-11-13 | XR_ITS ---
EXAMINATION: XR chest 2V Exam Date/Time: 11/13/2022 19:15 CDT HISTORY: COUGH, CONTINUED COVID SYMPTOMS X 4 WEEKS Comparison: 09/26/2022. RESULT: Lines, tubes, and devices: None. Lungs and pleura: Clear. Cardiomediastinal silhouette: Stable. Other: No acute osseous or upper abdominal finding. IMPRESSION: No acute cardiopulmonary process. Reviewed, dictated and finalized at location [facility].
--- NOTE | 2022-11-13 19:04 | ED.URI ---
HPI - URI/Sore Throat General Chief Complaint: Upper Respiratory Infection Stated Complaint: stuffy nose,sore throat Time Seen by Provider: 11/13/22 19:04 Source: patient, RN notes reviewed and old records reviewed Mode of arrival: ambulatory Limitations: no limitations History of Present Illness HPI Narrative: 62 year old female who presents to [facility] care with complaints of sore throat which started today, continued feelings of having cough, nasal congestion and drainage post COVID 4 weeks ago. Patient reports no known fevers, having some chills, no present dyspnea. Patient reports that she has been taking sinus allergy medication, daytime and night time cold medication, saline nasal spray without resolution of her symptoms. Patient reports that she continues to have greenish colored nasal drainage. MD elicited complaint: cough, sore throat, rhinorrhea and nasal congestion Pertinent past history: COPD and other (diagnosed COVID 4 weeks ago, daily tobaco use) Onset (ago): week(s) (4 cough sinus congestion and drainage with new sore throat today) Pain scale (0-10): 9 Description of mucous: green Able to tolerate fluids by mouth: Yes Treatments prior to arrival: cold medicine and other (sinus medications, allergy med, nasal saline) Related Data Home Medications Medication Instructions Recorded Confirmed albuterol sulfate 90 mcg/actuation 2 puff inhalation QID PRN 03/31/19 11/13/22 aerosol inhaler Shortness Of Breath amlodipine 5 mg tablet 5 mg PO DAILY 09/20/21 11/13/22 isosorbide mononitrate 30 mg 30 mg PO DAILY 09/20/21 11/13/22 tablet,extended release 24 hr nitroglycerin 0.3 mg sublingual 0.3 mg sublingual PRN PRN Chest 09/20/21 11/13/22 tablet Pain ergocalciferol (vitamin D2) 1,250 See Rx Instructions .Route .COMPLEX 08/17/22 11/13/22 mcg (50,000 unit) capsule meloxicam 15 mg tablet 15 mg PO DAILY 11/13/22 11/13/22 Allergies Allergy/AdvReac Type Severity Reaction Status Date / Time No Known Allergies Allergy Verified 11/13/22 18:58 Review of Systems Review of Systems: CONSTITUTIONAL:Reports malaise, chills, no sweats, or recent fever. EYES: Denies visual changes, redness, or discharge. ENT: Reports rhinorrhea, congestion, sinus pain, no otalgia, positive for sore throat. CARDIOVASCULAR: Denies chest pain, palpitations, or edema. RESPIRATORY: Reports cough.? Denies acute dyspnea. GASTROINTESTINAL: Denies abdominal pain, nausea, vomiting, diarrhea SKIN: Denies rash or itching. MUSCULOSKELETAL: Denies myalgia. NEUROLOGIC: Denies headache. All systems reviewed & are unremarkable except as noted in HPI and below PMFSH Past Medical History Medical History (Updated 11/14/22 @ 00:01 by Gelacio Zuluaga) Anxiety Arthritis Carpal tunnel syndrome, left COPD (chronic obstructive pulmonary disease) Depression Eczema Hx of breast cancer Hx of migraines Peripheral neuropathy Pneumonia Psoriasis Surgical History Surgical History History of bladder surgery Bladder tied up x4 History of carpal tunnel release lt History of hysterectomy History of lumpectomy Hx of cardiac cath Hx of right knee surgery Social History Social History Smoking status: Current every day smoker Gender identity (if verbalized by the patient): Female Comments At time of signature, agree with nursing past medical, surgical, social and family history. There is no relevant family history pertinent to the presenting complaint Exam Narrative: GENERAL: Well-appearing, well-nourished, and in no acute distress. HEAD: Normocephalic EYES: PERRLA, conjunctivae clear ENT: Nares clear, turbinates edematous and erythematous, clear to yellow discharge. Mucous membranes moist, sinus pressure. TM pearly mcclain with dull light reflex bilaterally; no tragal tenderness. Oropharynx erythematous without lesio
[2022-11-13 19:05] VITALS: BP 155/77; PULSE 77; RESP 16; TEMP 36.6; O2SAT 100
== END 2022-11-13 19:54 | disposition home or self-care (01) ==
PROVIDERS: Emergency Provider Registered Nurse; PCP Physician Assistant
DX: J06.9 Acute upper respiratory infection, unspecified (principal); R05.9 Cough, unspecified; M19.90 Unspecified osteoarthritis, unspecified site; J44.9 Chronic obstructive pulmonary disease, unspecified; Z85.3 Personal history of malignant neoplasm of breast; G62.9 Polyneuropathy, unspecified; L40.9 Psoriasis, unspecified; F17.200 Nicotine dependence, unspecified, uncomplicated; Z86.16 Personal history of COVID-19
CPT/HCPCS: 71046; 87081; 87804; 87880; 99213; G0463

== ENCOUNTER 2023-02-04 13:58 | Emergency (ER) | payer OTHER, SELFPAY ==
--- NOTE | 2023-02-04 14:05 | ED.DENTAL ---
HPI - Dental/Oral General Chief complaint: Dental/Oral Stated complaint: tongue swollen,blisters, greenish in color Time Seen by Provider: 02/04/23 14:20 Mode of arrival: ambulatory Limitations: no limitations History of Present Illness HPI Narrative: 62-year-old female presents with concern for painful swallowing, bumps on the back of her tongue. Reports her also noticed a discoloration on her tongue. She reports she is trying to quit smoking and has been using nicotine lozenges. For the past 2 weeks. She denies runny nose, stuffy nose. Reports she had a headache yesterday. MD Complaint: tooth pain Related Data Home Medications Medication Instructions Recorded Confirmed albuterol sulfate 90 mcg/actuation 2 puff inhalation QID PRN 03/31/19 02/04/23 aerosol inhaler Shortness Of Breath amlodipine 5 mg tablet 5 mg PO DAILY 09/20/21 02/04/23 isosorbide mononitrate 30 mg 30 mg PO DAILY 09/20/21 02/04/23 tablet,extended release 24 hr nitroglycerin 0.3 mg sublingual 0.3 mg sublingual PRN PRN Chest 09/20/21 02/04/23 tablet Pain ergocalciferol (vitamin D2) 1,250 See Rx Instructions .Route .COMPLEX 08/17/22 02/04/23 mcg (50,000 unit) capsule meloxicam 15 mg tablet 15 mg PO DAILY 11/13/22 02/04/23 Allergies Allergy/AdvReac Type Severity Reaction Status Date / Time No Known Allergies Allergy Verified 02/04/23 14:10 Review of Systems Review of Systems: CONSTITUTIONAL: Denies malaise, chills, sweats, or fever. EYES: Denies visual changes ENT: Denies rhinorrhea, congestion, sinus pain, otalgia. Reports bumps on her tongue and sore throat. Denies dental pain CARDIOVASCULAR: Denies chest pain, palpitations RESPIRATORY: Denies cough or dyspnea. SKIN: Denies rash or itching. MUSCULOSKELETAL: Denies myalgia. NEUROLOGIC: Denies numbness, weakness. Reports headache. All systems reviewed & are unremarkable except as noted in HPI and below PMFSH Past Medical History Medical History (Updated 02/04/23 @ 14:39 by Carmencita Burks NP) Anxiety Arthritis Carpal tunnel syndrome, left COPD (chronic obstructive pulmonary disease) Depression Eczema Hx of breast cancer Hx of migraines Peripheral neuropathy Pneumonia Psoriasis Surgical History Surgical History History of bladder surgery Bladder tied up x4 History of carpal tunnel release lt History of hysterectomy History of lumpectomy Hx of cardiac cath Hx of right knee surgery Social History Social History Smoking status: Current every day smoker Gender identity (if verbalized by the patient): Female Comments At time of signature, agree with nursing past medical, surgical, social and family history. There is no relevant family history pertinent to the presenting complaint Exam Narrative: GENERAL: Well-appearing, well-nourished, and in no acute distress. HEAD: Normocephalic, atraumatic. EYES: PERRLA, sclera clear ENT: Nares clear, turbinates pink, no rhinorrhea or epistaxis. Mucous membranes moist. TM pearly mcclain with sharp light reflex bilaterally; no tragal tenderness. Glandorf papules noted to the posterior tongue, no vesicles noted, slight tongue discoloration that is consistent with over growth of bacteria and smoking. Tonsils not enlarged and without exudate. Missing teeth, broken teeth, caries NECK: Supple. No lymphadenopathy. CHEST: No respiratory distress. Speaks in full sentences. HEART: Regular rate and rhythm. SKIN: Warm, dry, no visible rash. NEURO: Alert and oriented x3. PSYCH: Normal mood and affect Course Course Emergency Course: Patient is aware of diagnosis, understands and agrees to treatment plan. Anticipatory guidance given. Patient agrees to follow-up as directed and is aware of reasons to seek care at the emergency department. Portions of this record may have been created with voice recognition s
[2023-02-04 14:17] VITALS: BP 146/70; PULSE 75; RESP 16; TEMP 36.3; O2SAT 98
== END 2023-02-04 14:49 | disposition home or self-care (01) ==
PROVIDERS: Emergency Provider Nurse Practitioner; PCP Physician Assistant
DX: J02.9 Acute pharyngitis, unspecified (principal); M19.90 Unspecified osteoarthritis, unspecified site; J44.9 Chronic obstructive pulmonary disease, unspecified; G62.9 Polyneuropathy, unspecified; L40.9 Psoriasis, unspecified; Z85.3 Personal history of malignant neoplasm of breast; F17.200 Nicotine dependence, unspecified, uncomplicated
CPT/HCPCS: 87081; 87880; 99213; G0463

== ENCOUNTER 2023-05-14 11:57 | Emergency (ER) | payer OTHER, SELFPAY ==
--- NOTE | ~2023-05-14 | XR_ITS ---
XR hand RT min 3V 05/14/2023 12:37 Indication: Laceration to second finger. Procedure: 3 views right hand Comparison: 12/06/2014 Findings: There is polyarticular osteoarthritis. No focal soft tissue abnormality. No fracture or tra umatic malalignment. No foreign bodies. Impression: 1: No acute bone or joint abnormality. Reviewed, dictated and finalized at location A. Impression: 1: No acute bone or joint abnormality.
[2023-05-14 12:07] VITALS: BP 129/65; PULSE 60; RESP 16; TEMP 36.8; O2SAT 99
--- NOTE | 2023-05-14 12:27 | ED.WOUNDLAC ---
HPI - Wound/Laceration General Chief Complaint: Wound/Laceration <Thao Whitehead MD - Last Filed: 05/14/23 13:01> Stated Complaint: R HAND LACERATION <Thao Whitehead MD - Last Filed: 05/14/23 13:01> Time Seen by Provider: 05/14/23 12:13 <Thao Whitehead MD - Last Filed: 05/14/23 13:01> Source: patient <Thao Whitehead MD - Last Filed: 05/14/23 13:01> History of Present Illness HPI narrative: Right hand laceration from broken glass while washing it. Prior to arrival. Twenty years last tetanus shot. She denies other injuries <Thao Whitehead MD - Last Filed: 05/14/23 13:01> Related Data Home Medications: Home Medications Medication Instructions Recorded Confirmed albuterol sulfate 90 mcg/actuation 2 puff inhalation QID PRN 03/31/19 05/14/23 aerosol inhaler Shortness Of Breath amlodipine 5 mg tablet 5 mg PO DAILY 09/20/21 05/14/23 nitroglycerin 0.3 mg sublingual 0.3 mg sublingual PRN PRN Chest 09/20/21 05/14/23 tablet Pain ergocalciferol (vitamin D2) 1,250 See Rx Instructions .Route .COMPLEX 08/17/22 05/14/23 mcg (50,000 unit) capsule meloxicam 15 mg tablet 15 mg PO DAILY 11/13/22 05/14/23 <Thao Whitehead MD - Last Filed: 05/14/23 13:01> Allergies/Adverse Reactions: Allergies Allergy/AdvReac Type Severity Reaction Status Date / Time No Known Allergies Allergy Verified 05/14/23 12:17 <Thao Whitehead MD - Last Filed: 05/14/23 13:01> Review of Systems Review of Systems: All systems reviewed & are unremarkable except as noted in HPI and below <Thao Whitehead MD - Last Filed: 05/14/23 13:01> PMFSH Past Medical History Medical History: Medical History (Updated 05/14/23 @ 12:37 by Thao Whitehead MD) Anxiety Arthritis Carpal tunnel syndrome, left COPD (chronic obstructive pulmonary disease) Depression Eczema Hx of breast cancer Hx of migraines Peripheral neuropathy Pneumonia Psoriasis <Thao Whitehead MD - Last Filed: 05/14/23 13:01> Surgical History Surgical History: Surgical History History of bladder surgery Bladder tied up x4 History of carpal tunnel release lt History of hysterectomy History of lumpectomy Hx of cardiac cath Hx of right knee surgery <Thao Whitehead MD - Last Filed: 05/14/23 13:01> Social History Social History: Social History Smoking status: Current every day smoker Gender identity (if verbalized by the patient): Female <Thao Whitehead MD - Last Filed: 05/14/23 13:01> Exam Narrative: General appearance: Well-developed, well-nourished Skin: Normal color right hand exam showed 1 cm subcutaneous laceration at the dorsal side, Head: Normocephalic, nontraumatic Vascular: Normal peripheral pulses, normal capillary refill. Musculoskeletal: Normal range of motion, nontender back Neurologic: Alert and oriented ?3, OFFICE ADMINISTRATIVE ASSISTANT is normal as tested, no gross motor deficit <Thao Whitehead MD - Last Filed: 05/14/23 13:01> Course Vital Signs Vital signs: Vital Signs Temperature 36.8 C 05/14/23 12:07 Pulse Rate 60 05/14/23 12:07 Respiratory Rate 16 05/14/23 12:07 Blood Pressure 129/65 05/14/23 12:07 Pulse Oximetry 99 05/14/23 12:07 Oxygen Delivery Room Air 05/14/23 12:07 Temperature 36.8 C 05/14/23 12:07 Pulse Rate 60 05/14/23 12:07 Respiratory Rate 16 05/14/23 12:07 Blood Pressure 129/65 05/14/23 12:07 Pulse Oximetry 99 05/14/23 12:07 Oxygen Delivery Room Air 05/14/23 12:07 <Thao Whitehead MD - Last Filed: 05/14/23 13:01> Vital Signs Temperature 36.8 C
[2023-05-14] MEDS: TETANUS,DIPHTHERIA,AC PERTUSSIS ADULT (0.5 ML) BOOSTRIX IM (12:54)
== END 2023-05-14 13:53 | disposition home or self-care (01) ==
PROVIDERS: Emergency Provider Emergency Medicine; PCP Physician Assistant
DX: S61.411A Laceration without foreign body of right hand, initial encounter (principal); Z23 Encounter for immunization; L40.9 Psoriasis, unspecified; M19.90 Unspecified osteoarthritis, unspecified site; G62.9 Polyneuropathy, unspecified; F17.200 Nicotine dependence, unspecified, uncomplicated; Z85.3 Personal history of malignant neoplasm of breast; Z87.01 Personal history of pneumonia (recurrent); W25.XXXA Contact with sharp glass, initial encounter; Y93.G1 Activity, food preparation and clean up; Z90.710 Acquired absence of both cervix and uterus
CPT/HCPCS: 12001; 73130; 90471; 90715; 99283

== ENCOUNTER 2023-08-26 19:11 | Emergency (ER) | payer OTHER, SELFPAY ==
--- NOTE | 2023-08-26 19:15 | ED.GENADULT ---
HPI - General Adult General Chief complaint: Extremity Injury, Lower Stated complaint: lower back/left leg pain Time Seen by Provider: 08/26/23 19:31 Source: patient, RN notes reviewed and old records reviewed Mode of arrival: ambulatory Limitations: no limitations History of Present Illness HPI narrative: 63-year-old female presents to the [facility] with complaints of left lower back/hip pain radiating down her left leg. History of similar. Patient reports that she already has x-rays and an ultrasound ordered by a doctor at work. States that she was taking meloxicam but that does not help. Symptoms started this morning, has taken 3 doses of ibuprofen, 600 mg. Patient requesting something stronger for pain management. Discussed with patient that we do not prescribe stronger that we can add a muscle relaxer and possible steroid to try to help. Patient with no midline tenderness. Patient denies loss retention of bowel or bladder. Denies abdominal pain. Denies fevers. Patient denies any injury. No erythema, ecchymosis or rash noted to the lower back or buttocks Related Data Home Medications Medication Instructions Recorded Confirmed albuterol sulfate 90 mcg/actuation 2 puff inhalation QID PRN 03/31/19 08/26/23 aerosol inhaler Shortness Of Breath amlodipine 5 mg tablet 5 mg PO DAILY 09/20/21 08/26/23 nitroglycerin 0.3 mg sublingual 0.3 mg sublingual PRN PRN Chest 09/20/21 08/26/23 tablet Pain ergocalciferol (vitamin D2) 1,250 See Rx Instructions .Route .COMPLEX 08/17/22 08/26/23 mcg (50,000 unit) capsule Allergies Allergy/AdvReac Type Severity Reaction Status Date / Time No Known Allergies Allergy Verified 05/14/23 12:17 Review of Systems Review of Systems: All systems reviewed & are unremarkable except as noted in HPI and below Constitutional: Constitutional: Reports no additional constitutional complaints Eyes: Eyes: Reports no additional eye complaints ENT: Reports system reviewed and no additional complaints, except as documented Cardiovascular: Cardiovascular: Reports no additional cardiovascular complaints, Denies chest pain and Denies dyspnea Respiratory: Respiratory: Reports no additional respiratory complaints, Denies chest congestion, Denies cough and Denies dyspnea Gastrointestinal: Gastrointestinal: Reports no additional gastrointestinal complaints, Denies abdominal pain, Denies nausea and Denies vomiting Musculoskeletal: Musculoskeletal: Reports as per HPI Integumentary/Breasts: Skin/Breast: Reports system reviewed and no additional complaints, except as docu Neurologic: Reports system reviewed and no additional complaints, except as documented Psychiatric: Psychiatric: Reports no additional psychiatric complaints Allergic/Immunologic: Allergic/Immunologic: Reports no additional allergic/immunologic complaints PMFSH Past Medical History Medical History Anxiety Arthritis Carpal tunnel syndrome, left COPD (chronic obstructive pulmonary disease) Depression Eczema Hx of breast cancer Hx of migraines Peripheral neuropathy Pneumonia Psoriasis Surgical History Surgical History History of bladder surgery Bladder tied up x4 History of carpal tunnel release lt History of hysterectomy History of lumpectomy Hx of cardiac cath Hx of right knee surgery Social History Social History Smoking status: Current every day smoker Gender identity (if verbalized by the patient): Female Comments At the time of my signature, I reviewed and agree with the nursing past medical, surgical, social, and family history. There is no relevant family history pertinent to the patient complaint. Exam Const: General: cooperative, healthy appearing, no acute distress, well developed, alert, uncomfortable and well nourished Nutritional Sowmya
[2023-08-26 19:30] VITALS: BP 137/66; PULSE 61; RESP 18; TEMP 36.4; O2SAT 100
== END 2023-08-26 19:45 | disposition home or self-care (01) ==
PROVIDERS: Emergency Provider Nurse Practitioner; PCP Physician Assistant
DX: M54.32 Sciatica, left side (principal); F17.210 Nicotine dependence, cigarettes, uncomplicated; J45.909 Unspecified asthma, uncomplicated; J44.9 Chronic obstructive pulmonary disease, unspecified; G62.9 Polyneuropathy, unspecified; Z85.3 Personal history of malignant neoplasm of breast
CPT/HCPCS: 99213; G0463

== ENCOUNTER 2023-09-03 07:44 | Outpatient (CLI) | payer OTHER, SELFPAY ==
--- NOTE | ~2023-09-03 | MR_ITS ---
MRI of the lumbar spine Clinical History: Degenerative disc disease Technique: Axial T2-weighted images, and sagittal T1-weighted, T2-weighted, and and T2 fat-sat images were acquired. Findings: There is no fracture in the lumbar spine. There is 5 mm anterolisthesis of L4 over L5. Ther e are type III Modic changes about the L2-L3 and L3-L4 disc spaces. No suspicious marrow signal abnor mality seen. At L1-L2, there is no disc bulge region. There is moderate facet arthropathy. No central canal stenos is. There is probable minimal bilateral neural foraminal narrowing. At L2-L3, there is moderate degenerative disc narrowing. There is mild disc bulge and severe facet ar thropathy, especially on the right side. There is mild central canal stenosis. There is severe right neural foraminal narrowing. There is mild left neural foraminal narrowing. At L3-L4, there is moderate degenerative disc narrowing. There is mild disc bulge and severe facet ar thropathy. No central canal stenosis. There is mild right neural foraminal narrowing. Left neural for amen preserved. At L4-L5, there is diffuse disc bulge/uncovering with severe facet arthropathy, which result in sever e spinal canal stenosis/thecal sac compression. There is mild bilateral neural foraminal narrowing. At L5-S1, there is mild disc bulge and severe facet arthropathy. No central canal stenosis. There is no dari neural foraminal narrowing. Paravertebral soft tissues are unremarkable. Impression: 5 mm anterolisthesis of L4 over L5. Severe degenerative spondylosis at L4-L5, as detailed above. Moderate degenerative spondylosis otherw ise, as detailed above. Reviewed, dictated and finalized at [facility]. Impression: 5 mm anterolisthesis of L4 over L5. Severe degenerative spondylosis at L4-L5, as detailed above. Moderate degenerat marion spondylosis otherwise, as detailed above.
== END 2023-09-03 07:45 ==
LOC: MICIMG 07:46
PROVIDERS: PCP Nurse Practitioner Adult Health; Visit Provider Nurse Practitioner Adult Health
DX: M51.37 Other intervertebral disc degeneration, lumbosacral region (principal); M79.604 Pain in right leg; M47.896 Other spondylosis, lumbar region
CPT/HCPCS: 72148

== ENCOUNTER 2023-10-13 08:59 | Outpatient (CLI) | payer OTHER, SELFPAY ==
--- NOTE | ~2023-10-13 | US_ITS ---
US arterial ankle brachial ind INDICATION: Nicotine dependence. Claudication. TECHNIQUE: Segmental pressures and plethysmographic and Doppler waveforms of the brachial and lower e xtremity arteries were obtained. COMPARISON: None. FINDINGS: Right and left brachial artery pressures of 131 mm Hg and 1:30 mm Hg, respectively, are concordant (n ormal difference <= 30 mmHg). The right ankle-brachial index (JNUITO) is 1.02 (normal >= 0.9-1.0). The right great toe-brachial index (TBI) is 0.38 (normal >= 0.60). The left JUNITO is 1.06. The left TBI is 0.32. IMPRESSION: 1. Diminished bilateral toe brachial indices consistent with peripheral arterial disease. Reviewed, dictated and finalized at location B. IMPRESSION: 1. Diminished bilateral toe brachial indices consistent with peripheral arteria l disease.
== END 2023-10-13 09:00 | disposition home or self-care (01) ==
PROVIDERS: PCP Nurse Practitioner Adult Health; Visit Provider Nurse Practitioner Adult Health
DX: I25.110 Atherosclerotic heart disease of native coronary artery with unstable angina pectoris (principal); F17.210 Nicotine dependence, cigarettes, uncomplicated; I73.9 Peripheral vascular disease, unspecified
CPT/HCPCS: 93922

== ENCOUNTER 2024-01-05 08:27 | Observation (INO) | payer OTHER, SELFPAY ==
[2024-01-05] VITALS (20 sets, daily range): BP systolic 116–179; BP diastolic 51–92; PULSE 47–67; RESP 14–18; TEMP 36.6–37; O2SAT 95–100; BMI 24.7
--- NOTE | ~2024-01-05 | XR_ITS ---
EXAMINATION: XR chest 2V DATE: 01/05/2024 09:25 INDICATION: Chest pain. Smoker. TECHNIQUE: PA and lateral views of the chest were obtained. COMPARISON: Chest radiograph dated 11/13/2022 FINDINGS: The lungs remain clear with no focal airspace opacities, pulmonary edema, pleural effusion or pneumot horax. The cardiomediastinal silhouette is normal. Mild thoracic spondylosis. IMPRESSION: 1. No acute cardiopulmonary disease. Reviewed, dictated and finalized at location [facility]
--- NOTE | 2024-01-05 08:37 | ECG_ITS ---
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
--- NOTE | 2024-01-05 08:41 | ED_ITS ---
HPI - Chest Pain General Chief Complaint: Chest Pain Stated Complaint: CP Time Seen by Provider: 01/05/24 08:32 Source: patient Mode of arrival: ambulatory Limitations: no limitations History of Present Illness HPI narrative: patient presents with left-sided chest pain that started at 6:30 a.m. 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 It radiates into her left axilla. This pain is intermittent and have resolved but then is now present while resting in the stretcher. No associated nausea, vomiting, fevers, or chills. She notes that she has a chronic cough and felt a little short of breath with this episode. She also felt dizzy as well as a little diaphoretic. She has a prior history of angina and has previously used nitroglycerin for this which helps but she did not have any on her at that time. She also has a history of COPD but is not on supplemental oxygen. Does not follow regularly with a ground wirer as she saw 1 previously and they told her that her primary care physician could manage her. Patient's primary care physician is Dr Raffaele Turner. she notes that she at prior cardiac workup at [facility] but that was 5 years ago. She has a history of hypertension for which she takes amlodipine although she did forget today's dose. No history of hyperlipidemia, diabetes mellitus, myocardial infarction, no prior stents. She notes that she was told she had possibly had a TIA or CVA previously given an issue with her lip/asymmetry. her father had a myocardial infarction before the age of 65 and from that and her 37-year-old daughter had a myocardial infarction last year requiring a stent. Patient notes that she has significant stressors and had previously smoked less than half a pack per day but is now probably smoking approximately half pack per day given that her niece and granddaughter living with her. Related Data Home Medications Medication Instructions Recorded Confirmed albuterol sulfate 90 mcg/actuation 2 puff inhalation QID PRN 03/31/19 01/05/24 aerosol inhaler Shortness Of Breath amlodipine 5 mg tablet 5 mg PO DAILY 09/20/21 01/05/24 nitroglycerin 0.3 mg sublingual 0.3 mg sublingual PRN PRN Chest 09/20/21 01/05/24 tablet Pain ergocalciferol (vitamin D2) 1,250 See Rx Instructions .Route .COMPLEX 08/17/22 01/05/24 mcg (50,000 unit) capsule sodium chloride 0.65 % nasal spray 2 spray intranasal DAILY 01/05/24 01/05/24 aerosol (Nasal [place] (sodium chloride)) tiotropium bromide 18 mcg capsule 1 cap inhalation DAILY 01/05/24 01/05/24 with inhalation device (Spiriva with HandiHaler) Allergies Allergy/AdvReac Type Severity Reaction Status Date / Time No Known Allergies Allergy Verified 05/14/23 12:17 [facility] Past Medical History Medical History Angina pectoris Anxiety Arthritis Carpal tunnel syndrome, left COPD (chronic obstructive pulmonary disease) Current smoker Depression Eczema HTN (hypertension) Hx of breast cancer Hx of migraines Peripheral neuropathy Pneumonia Psoriasis Surgical History Surgical History History of bladder surgery Bladder tied up x4 History of carpal tunnel release lt History of hysterectomy History of lumpectomy Hx of cardiac cath Hx of right knee surgery Family History Family History Father Acute myocardial infarction <65yo Brain tumor Daughter Acute myocardial infarction, Onset Age: 36 Diabetes mellitus Polycythemia vera Sibling Diabetes mellitus Social History Social History Smoking packs per day: 0.5 Smoking cigarettes per day: 10.0 Years smoked: 49 Smoking pack-years: 24.50 Smoking status: Current every day smoker Tobacco type: cigarettes Alcohol intake: never Substance use: never Do You Feel Safe in your Home?: Yes Lack of Transportation: No Lack of Food: Never True Current Housing: I Have Housing Concerned About Future Housing: No Difficulty Paying Gas/Electric Bills: No Difficulty Paying for Meds: No Currently Unemployed: No Education: High School Diploma/GED Difficulty w/ Childcare or Family Care: No Living arrangements: with family Additional living arrangements comments: niece and granddaughter currently living with her which is a stressor as they fight Occupation/Education: occupation Additional occupation/education comments: works in a [employer] Gender identity (if verbalized by the patient): Female Spiritual care concerns: No Exam Narrative: GENERAL: Well-appearing, well-nourished, and in no acute distress. HEAD: Normocephalic, atraumatic. EYES: Non injected, non icteric ENT: Nares clear, no rhinorrhea or epistaxis. NECK: Supple. CHEST: Speaking in full sentences. No respiratory distress. lungs clear to auscultation bilaterally without wheezes crackles, or focal consolidation. HEART: Regular rate and rhythm. . ABDOMEN: Soft, nondistended. EXTREMITIES: Normal range of motion. No lower extremity edema. SKIN: Warm, dry, no rash. NEURO: No focal deficits. Alert and oriented x3. PSYCH: Normal mood and affect. Course Vital Signs Vital signs: Vital Signs Temperature 97.8 F 01/05/24 08:31 Pulse Rate 67 01/05/24 08:31 Respiratory Rate 18 01/05/24 08:31 Blood Pressure 179/85 H 01/05/24 08:31 Pulse Oximetry 100 01/05/24 08:31 Temperature 98.6 F 01/05/24 20:00 Pulse Rate 49 L 01/05/24 20:00 Respiratory Rate 18 01/05/24 20:00 Blood Pressure 125/62 01/05/24 20:00 Pulse Oximetry 97 01/05/24 20:00 Oxygen Delivery Room Air 01/05/24 16:00 MDM - Chest Pain MDM Narrative Medical decision making narrative: Patient presents with chest pain beginning acutely at 6:30 a.m. 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 she has a history of angina and has previously used nitroglycerin but did not have any on hand. however, she is continuing to have intermittent episodes even now while at rest and this is different from previous. last cardiac workup was approximately 5 years ago. In the emergency department she is afebrile with vital signs notable for hype rtension. HEART SCORE History 2 highly suspicious 1 moderately suspicious 0 slightly suspicious History score [address] depression/elevation not due to LBBB, LVH, or digoxin [address] depression but LBBB, LVH, nonspecific repolarization changes 0 normal ECG score 0 Age 2 >/= 65 1 45-64 0 <45 Age score 2 Risk factors (HTN, hypercholesterolemia, DM, obesity with BMI >30, current smoker or cessation </=3mo), positive fam hx with parent or sibling with CVD before age 65, atherosclerotic disease (prior DC, PCI/CABG, CVA/TIA, or peripheral arterial disease) 2 >/= 3 risk factors or history of atherosclerotic dz 1 - 1-2 risk factors 0 no known risk factors Risk factor score 2 (HTN, smoke, fam hx) Initial Troponin 2 >3 times normal limit 1 1-3 times normal limit 0 less than or equal to normal limit Troponin score 0 Total HEART Score 5. 2nd troponin normal. Discussed with cardiology nurse practitioner covering the on-call service for non interventional cardiology who concurred with a recommendation for observation admission for further workup given unstable angina. Discussed with lead solutions architect hospitalist XENIA Negron. Differential Diagnosis Differential diagnosis: Likely stable angina, unstable angina pectoris, atypical chest pain, st elevation myocardial infarction, chest pain and biliary colic Lab Data Attestation: I reviewed the patient's lab results. 01/05/24 08:43 01/05/24 08:43 Labs: Lab Results 01/05/24 01/05/24 Range/Units 08:43 11:44 WBC 10.0 (4.5-10.0) K/mm3 RBC 4.96 (4.2-5.4) M/mm3 Hgb 15.7 H (12.0-15.0) g/dL Hct 46.7 (37.0-47.0) % MCV 94.2 (80-100) fl MCH 31.7 (26-34) pg MCHC 33.6 (32-36) g/dl RDW 12.2 (11.5-14.5) % Plt Count 282 (150-375) k/mm3 MPV 10.0 (7.4-10.4) fl Immature Gran % (Auto) 0.4 (0-0.5) % Neut % (Auto) 52.4 (45.5-73.1) % Lymph % (Auto) 37.9 (18.3-44.2) % Hartley % (Auto) 6.6 (2.6-8.5) % Eos % (Auto) 2.3 (0-4.4) % Baso % (Auto) 0.4 (0.2-1.2) % Lymph # (Auto) 3.79 H (0.9-3.2) K/mm3 Hartley # (Auto) 0.7 H (0.1-0.6) K/mm3 Eos # (Auto) 0.2 (0-0.3) K/mm3 Baso # (Auto) 0.0 (0.0-0.1) K/mm3 Abs Immat Gran (auto) 0.04 H (0.00-0.031) K/mm3 Absolute Neuts (auto) 5.2 (1.3-6.7) K/mm3 Absolute Nucleated RBC 0.000 (0.0-0.012) K/mm3 Nucleated RBC % 0.0 (0.0-0.2) % PT 12.2 (11.1-14.7) Seconds INR 0.9 APTT 28.3 (22.3-36.8) Seconds Sodium 141 (137-145) mmol/L Potassium 4.1 (3.4-5.0) mmol/L Chloride 104 (98-107) mmol/L Carbon Dioxide 25 (22-30) mmol/L Anion Gap 12 (4-12) mmol/L BUN 18 H (7-17) mg/dL Creatinine 0.70 (0.7-1.0) mg/dL Estim Creat Clear Calc 60 ml/min Estimated GFR > 60 (59 - ) Glucose 129 H (65-110) mg/dL Calcium 9.9 (8.4-10.2) mg/dL Total Bilirubin 0.4 (0.2-1.3) mg/dL AST 32 (14-36) U/L ALT 40 H (6-35) U/L Alkaline Phosphatase 121 (38-126) U/L Troponin I < 0.012 < 0.012 (0.000-0.034) ng/mL Total Protein 8.0 (6.3-8.2) g/dL Albumin 4.9 (3.5-5.1) g/dL Lipase 49 (23-300) U/L Imaging Data Radiologist's impression: Impressions Chest X-Ray 01/05/24 09:30 IMPRESSION: 1. No acute cardiopulmonary disease. ECG Data EKG #1: Attestation: I personally reviewed and interpreted this ECG as follows: ECG completion date: 01/05/24 ECG completion time: 08:39 Interpretation: Normal sinus rhythm at a rate of 63 beats per minute. QRS 107. AK 180. QT/ QTC 414/421. Good R-wave progression across the precordial leads. No T-wave inversions. Borderline left axis deviation. EKG #2: Attestation: I personally reviewed and interpreted this ECG as follows: ECG completion date: 01/05/24 ECG completion time: 11:49 Interpretation: sinus bradycardia rate of 50 beats per minute. AK interval 195. QRS 106. QT/QTC 441/416. No T-wave inversions. Discharge Plan Discharge Clinical Impression: Unstable angina Patient Disposition: Still a Patient Condition: Stable
[2024-01-05 08:52] LABS: Basophils Percent Auto 0.4 % (0.2-1.2); Eosinophils Absolute Auto 0.2 K/mm3 (0-0.3); Eosinophils Percent Auto 2.3 % (0-4.4); Hematocrit 46.7 % (37.0-47.0); Hemoglobin 15.7 g/dL (12.0-15.0); Immature Granulocyte Absolute 0.04 K/mm3 (0.00-0.031); Immature Granulocyte Percent A 0.4 % (0-0.5); Lymphocytes Absolute Auto 3.79 K/mm3 (0.9-3.2); Lymphocytes Percent Auto 37.9 % (18.3-44.2); Mean Corpuscular HGB Conc 33.6 g/dl (32-36); Mean Corpuscular Hemoglobin 31.7 pg (26-34); Mean Corpuscular Volume 94.2 fl (80-100); Monocytes Absolute Auto 0.7 K/mm3 (0.1-0.6); Monocytes Percent Auto 6.6 % (2.6-8.5); Neutrophils Absolute Auto 5.2 K/mm3 (1.3-6.7); Neutrophils Percent Auto 52.4 % (45.5-73.1); Platelet Count Result 282 k/mm3 (150-375); Red Blood Count 4.96 M/mm3 (4.2-5.4); Red Cell Distribution Width 12.2 % (11.5-14.5)
[2024-01-05] MEDS: NITROGLYCERIN SL 0.4 MG TABLET SUBLINGUAL (09:03)
[2024-01-05] MEDS: ASPIRIN 81 MG CHEWABLE TABLET 324 MG PO (09:03)
[2024-01-05 09:06] LABS: Alanine Aminotransferase 40 U/L (6-35); Albumin Level 4.9 g/dL (3.5-5.1); Alkaline Phosphatase 121 U/L (38-126); Anion Gap 12 mmol/L (4-12); Aspartate Amino Transferase 32 U/L (14-36); Bilirubin,Total 0.4 mg/dL (0.2-1.3); Blood Urea Nitrogen 18 mg/dL (7-17); Calcium 9.9 mg/dL (8.4-10.2); Carbon Dioxide 25 mmol/L (22-30); Chloride 104 mmol/L (98-107); Estimated CRCL calculation 60 ml/min; Estimated Glomerular Filt Rate > 60; Glucose 129 mg/dL (65-110); Lipase 49 U/L (23-300); Potassium 4.1 mmol/L (3.4-5.0); Sodium 141 mmol/L (137-145)
[2024-01-05 09:11] LABS: INR 0.9; Prothrombin Time 12.2 Seconds (11.1-14.7)
[2024-01-05 09:12] LABS: Partial Thromboplastin Time 28.3 Seconds (22.3-36.8)
[2024-01-05 09:17] LABS: Troponin I < 0.012 ng/mL (0.000-0.034)
--- NOTE | 2024-01-05 11:46 | ECG_ITS ---
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
[2024-01-05 12:15] LABS: Troponin I < 0.012 ng/mL (0.000-0.034)
--- NOTE | 2024-01-05 13:12 | PM.IMHP ---
H&P: HPI History of Present Illness Date/Time: 01/05/24 13:12 Chief Complaint: Chest Pain Narrative: 63 y/o F presents here with chest pain with PMH of angina pectoralis, anxiety/depression, COPD, breast cancer s/p lumpectomy, migraines, current smoker, HTN, and psoriasis. The patient presents here from home for further evaluation of chest pain. She reports acute onset of left sided chest pain at 6:30 a.m. this morning while she was walking into work. She described the chest pain as a soreness, tightness, heaviness, radiation to her left axilla, intermittent, aggravated by palpation of the chest, and alleviated partially by ASA and nitro (continues to have episodes, pain less severe). Episodes are lasting only a few seconds and resolve without intervention. The chest pain was accompanied by mild dizziness, diaphoresis, fatigue, and mild shortness of breath. She denies nausea, vomiting, fever, chills, body aches, and palpitations. After arrival to the emergency department while she was resting in the stretcher the chest pain reoccurred. She has a history of angina for which she has p.r.n. nitroglycerin. The patient did not have any available to her at the time she developed chest pain, however historically the nitro has helped to alleviate her pain. She currently does not follow with a home service advisor, management through her PCP, and last cardiac workup was approximately 2 years ago. Patient had a heart catheterization approximately 2 years ago which showed no CAD or blockage. She does have a significant cardiac family history - father from a AK in his late 50's and her daughter had an AK requiring a stent at age 35. The patient has no personal history of AK or cardiac stent placement. The patient is reporting increased stress recently. Initial VS at presentation: 97.8? F, HR 67, RR 18, 179/85, and 100% on RA. ED workup showed: With no leukocytosis, hemoglobin 15.7, normal coags, no significant electrolyte derangements, creatinine 0.7 and GFR >60, glucose 129, initial troponin negative. Initial EKG showed NSR, rate 63, good R-wave progression, no T-wave inversions, borderline left axis deviation. CXR showed no acute cardiopulmonary disease. Review of Systems Review of Systems: All systems reviewed & are unremarkable except as noted in HPI and below PMFSH Past Medical History Medical History (Updated 01/05/24 @ 16:45 by Migdalia Pham APRN) Angina pectoris Anxiety Arthritis Carpal tunnel syndrome, left COPD (chronic obstructive pulmonary disease) Current smoker Depression Eczema HTN (hypertension) Hx of breast cancer Hx of migraines Peripheral neuropathy Pneumonia Psoriasis Surgical History Surgical History (Updated 01/05/24 @ 16:45 by Migdalia Pham APRN) History of bladder surgery Bladder tied up x4 History of carpal tunnel release lt History of hysterectomy History of lumpectomy Hx of cardiac cath Hx of right knee surgery Family History Family History Father Acute myocardial infarction <65yo Brain tumor Daughter Acute myocardial infarction, Onset Age: 36 Diabetes mellitus Polycythemia vera Sibling Diabetes mellitus Social History Social History Smoking packs per day: 0.5 Smoking cigarettes per day: 10.0 Years smoked: 49 Smoking pack-years: 24.50 Smoking status: Current every day smoker Tobacco type: cigarettes Alcohol intake: never Substance use: never Do You Feel Safe in your Home?: Yes Lack of Transportation: No Lack of Food: Never True Current Housing: I Have Housing Concerned About Future Housing: No Difficulty Paying Gas/Electric Bills: No Difficulty Paying for Meds: No Currently Unemployed: No Education: High School Diploma/GED Difficulty w/ Childcare or Family Care: No Living arrangements: with family Additional living arrangements comments: niece and granddaughter currently living with her which is a stressor as they fight Occupation/Education: occupation Additional occupation/education comments: works in a [employer] Gender identity (if verbalized by the patient): Female Spiritual care concerns: No Meds Home Medications and Allergies Home Medications Medication Instructions Recorded Confirmed Type albuterol sulfate 90 mcg/actuation 2 puff inhalation QID PRN 03/31/19 01/05/24 History aerosol inhaler Shortness Of Breath cyclobenzaprine 10 mg tablet 10 mg PO TID PRN muscle spasm #20 03/31/19 01/05/24 Rx tabs amlodipine 5 mg tablet 5 mg PO DAILY 09/20/21 01/05/24 History nitroglycerin 0.3 mg sublingual 0.3 mg sublingual PRN PRN Chest 09/20/21 01/05/24 History tablet Pain ergocalciferol (vitamin D2) 1,250 See Rx Instructions .Route .COMPLEX 08/17/22 01/05/24 History mcg (50,000 unit) capsule baclofen 10 mg tablet 10 mg PO TID PRN muscle pain #15 08/26/23 01/05/24 Rx tabs sodium chloride 0.65 % nasal spray 2 spray intranasal DAILY 01/05/24 01/05/24 History aerosol (Nasal [place] (sodium chloride)) tiotropium bromide 18 mcg capsule 1 cap inhalation DAILY 01/05/24 01/05/24 History with inhalation device (Spiriva with HandiHaler) Allergies Allergy/AdvReac Type Severity Reaction Status Date / Time No Known Allergies Allergy Verified 05/14/23 12:17 Vital Signs Vital Signs - 24 hr 01/05/24 08:31 01/05/24 09:00 01/05/24 09:30 Temperature 97.8 F Pulse Rate 67 63 56 L Respiratory Rate 18 17 16 Blood Pressure 179/85 H 140/76 142/72 H Pulse Oximetry 100 100 99 01/05/24 10:01 01/05/24 10:31 01/05/24 11:01 Temperature Pulse Rate 52 L 47 L 50 L Respiratory Rate 16 15 15 Blood Pressure 130/73 145/64 H 137/71 Pulse Oximetry 96 95 96 01/05/24 11:34 Temperature Pulse Rate 53 L Respiratory Rate 16 Blood Pressure Pulse Oximetry 98 Exam Const: General: comfortable and no acute distress Other: , female, nontoxic appearance HENMT: Face/Nose/Sinus: Normal nares present Mouth: Yes moist mucous membranes Eyes: General: appearance normal, both eyes and all related structures Sclera: sclerae normal Pupils: Equal, round and reactive pupils present EOM: EOMs intact bilaterally Resp: Effort & Inspection: normal respiratory effort Auscultation: clear to auscultation bilaterally Cardio: Rate: regular rate Rhythm: regular rhythm Other: S1-S2 present without murmur, rub, ectopy GI: Other: Abdomen nondistended, nontender. Skin: General skin exam: normal color and no rashes or lesions noted Wounds: no wounds Neuro: Speech: normal speech Motor exam (neuro): 5/5 motor strength present throughout Sensory Exam: normal sensation Other: A&O x4 Extrem: General: normal to inspection Psych: Mental Status: mental status grossly normal Affect: Anxious affect present Other: Good insight and judgment, pleasant H&P: Results Labs Labs: Short CBC 01/05/24 Range/Units 08:43 WBC 10.0 (4.5-10.0) K/mm3 Hgb 15.7 H (12.0-15.0) g/dL Hct 46.7 (37.0-47.0) % Plt Count 282 (150-375) k/mm3 BMP 01/05/24 08:43 Sodium 141 Potassium 4.1 Chloride 104 Carbon Dioxide 25 BUN 18 H Creatinine 0.70 Glucose 129 H Calcium 9.9 Cardiac Enzymes 01/05/24 01/05/24 Range/Units 08:43 11:44 Troponin I < 0.012 < 0.012 (0.000-0.034) ng/mL Liver Function 01/05/24 Range/Units 08:43 Total Bilirubin 0.4 (0.2-1.3) mg/dL AST 32 (14-36) U/L ALT 40 H (6-35) U/L Alkaline Phosphatase 121 (38-126) U/L Albumin 4.9 (3.5-5.1) g/dL Assessment and Plan Assessment and plan (1) Chest pain: Qualifiers: Chest pain type: unspecified Qualified Code(s): R07.9 - Chest pain, unspecified Code(s): R07.9 - Chest pain, unspecified Status: Acute Assessment and Plan: - EKG, initial: normal sinus rhythm at a rate of 63 beats per minute. QRS 107. KS 180. QT/ QTC 414/421. Good R-wave progression across the precordial leads. No T-wave inversions. Borderline left axis deviation. - EKG, repeat (1): sinus bradycardia rate of 50 beats per minute. KS interval 195. QRS 106. QT/QTC 441/416. No T-wave inversions. - CXR: no acute cardiopulmonary disease. - Troponin: <0.012 x3 - ASA 324 given, continue as 81 daily - SL nitro PRN - cardiology consulted, Kimberly MICHAELS. Provided the following recs: no current indication for stress test or cath, okay to d/c - add A1C, lipid panel - telemetry monitoring Will trial GI cocktail now, Toradol scheduled for 5:30 p.m. bedside RN instructed to notify provider if patient found relief from chest pain with either medications. Patient offered discharge this evening given cardiac clearance, however she feels more comfortable being observed overnight. (2) HTN (hypertension): Qualifiers: Hypertension type: primary hypertension Qualified Code(s): I10 - Essential (primary) hypertension Code(s): I10 - Essential (primary) hypertension Status: Chronic Assessment and Plan: - chronic, currently 140/70 - continue home medications: Amlodipine 5 mg daily - monitor Plan Diet: Heart healthy GI Prophylaxis: Not currently indicated DVT Prophylaxis: SCDs Lines: Peripheral Code Status: Full code Quality VTE Prophylaxis VTE prophylaxis: mechanical ordered Hospitalist MIPS Advance Care Plan I have confirmed that the patient's Advanced Care Plan is present, code status is documented, or surrogate decision maker is listed in patient medical record.: Yes
[2024-01-05 15:08] LABS: Troponin I < 0.012 ng/mL (0.000-0.034)
--- NOTE | 2024-01-05 16:54 | PM.CNCAR ---
Assessment and Plan Assessment and plan (1) Chest pain: Qualifiers: Chest pain type: unspecified Qualified Code(s): R07.9 - Chest pain, unspecified Code(s): R07.9 - Chest pain, unspecified Status: Acute Assessment and Plan: Patient has a known history of microvascular angina. She is also known to have nonobstructive coronary artery disease demonstrated by coronary angiography in 2021 at [facility]. She comes to the hospital today because several occurrences of chest pain that were more intense than usual. Although the description her chest pain has some features that are typical of angina, I do not think that this situation warrants any further inpatient evaluation as she has had a relatively recent cardiac catheterization which demonstrated nonobstructive coronary artery disease and she has negative serial troponins. She also has a normal EKG without ischemic changes. We can intensify her antianginal medications and we can also consider outpatient ischemic evaluation depending on her response to medication changes. From a cardiac standpoint, she can discharged with plan for outpatient follow up with either our group or she can reestablish care with Dr. Howard History of Present Illness History of Present Illness Consult date/time: 01/05/24 16:54 Reason For Visit: Unstable Angina/Heart Score 5 Narrative: Carrie Rooney is a 63 year old female with history of microvascular angina and nonobstructive coronary artery disease previously followed by Dr. Howard. She comes to the hospital following several episodes of chest pain which occurred while she was at work this morning. Patient states that she frequently has chest discomfort as she is walking around at work. However, at this morning the pain was more significant than usual, therefore she decided to come to the hospital for evaluation. She describes the pain located in the left pectoral muscle area and extends to her left shoulder. She states that today she had some diaphoresis with the or chest discomfort. She describes the sensation as sometimes feeling tight, other times feeling like a sharp/stabbing pain. She has been prescribed nitroglycerin for this and it does typically resolve her symptoms. She also describes having tenderness, soreness to palpation on the chest as well. She does not have any palpitations, syncope, presyncope, swelling, orthopnea. She reports having several recurrences of chest pain since her presentation to the hospital. Currently, she is lying comfortably in bed and reports having mild discomfort intermittently during our conversation. Review of Systems Review of Systems: All systems reviewed & are unremarkable except as noted in HPI and below PMFSH Past Medical History Medical History Angina pectoris Anxiety Arthritis Carpal tunnel syndrome, left COPD (chronic obstructive pulmonary disease) Current smoker Depression Eczema HTN (hypertension) Hx of breast cancer Hx of migraines Peripheral neuropathy Pneumonia Psoriasis Surgical History Surgical History History of bladder surgery Bladder tied up x4 History of carpal tunnel release lt History of hysterectomy History of lumpectomy Hx of cardiac cath Hx of right knee surgery Family History Family History Father Acute myocardial infarction <65yo Brain tumor Daughter Acute myocardial infarction, Onset Age: 36 Diabetes mellitus Polycythemia vera Sibling Diabetes mellitus Social History Social History Smoking packs per day: 0.5 Smoking cigarettes per day: 10.0 Years smoked: 49 Smoking pack-years: 24.50 Smoking status: Current every day smoker Tobacco type: cigarettes Alcohol intake: never Substance use: never Do You Feel Safe in your Home?: Yes Lack of Transportation: No Lack of Food: Never True Current Housing: I Have Housing Concerned About Future Housing: No Difficulty Paying Gas/Electric Bills: No Difficulty Paying for Meds: No Currently Unemployed: No Education: High School Diploma/GED Difficulty w/ Childcare or Family Care: No Living arrangements: with family Additional living arrangements comments: niece and granddaughter currently living with her which is a stressor as they fight Occupation/Education: occupation Additional occupation/education comments: works in a [employer] Gender identity (if verbalized by the patient): Female Spiritual care concerns: No Meds Home Medications and Allergies Home Medications Medication Instructions Recorded Confirmed Type albuterol sulfate 90 mcg/actuation 2 puff inhalation QID PRN 03/31/19 01/05/24 History aerosol inhaler Shortness Of Breath cyclobenzaprine 10 mg tablet 10 mg PO TID PRN muscle spasm #20 03/31/19 01/05/24 Rx tabs amlodipine 5 mg tablet 5 mg PO DAILY 09/20/21 01/05/24 History nitroglycerin 0.3 mg sublingual 0.3 mg sublingual PRN PRN Chest 09/20/21 01/05/24 History tablet Pain ergocalciferol (vitamin D2) 1,250 See Rx Instructions .Route .COMPLEX 08/17/22 01/05/24 History mcg (50,000 unit) capsule baclofen 10 mg tablet 10 mg PO TID PRN muscle pain #15 08/26/23 01/05/24 Rx tabs sodium chloride 0.65 % nasal spray 2 spray intranasal DAILY 01/05/24 01/05/24 History aerosol (Nasal [place] (sodium chloride)) tiotropium bromide 18 mcg capsule 1 cap inhalation DAILY 01/05/24 01/05/24 History with inhalation device (Spiriva with HandiHaler) Allergies Allergy/AdvReac Type Severity Reaction Status Date / Time No Known Allergies Allergy Verified 05/14/23 12:17 Vital Signs Vital Signs - 24 hr 01/05/24 08:31 01/05/24 09:00 01/05/24 09:30 Temperature 36.6 C Pulse Rate 67 63 56 L Respiratory Rate 18 17 16 Blood Pressure 179/85 H 140/76 142/72 H Pulse Oximetry 100 100 99 01/05/24 10:01 01/05/24 10:31 01/05/24 11:01 Temperature Pulse Rate 52 L 47 L 50 L Respiratory Rate 16 15 15 Blood Pressure 130/73 145/64 H 137/71 Pulse Oximetry 96 95 96 01/05/24 11:34 01/05/24 12:01 01/05/24 12:31 Temperature Pulse Rate 53 L 52 L 57 L Respiratory Rate 16 14 17 Blood Pressure 130/80 144/86 H Pulse Oximetry 98 97 97 01/05/24 13:02 01/05/24 13:31 01/05/24 13:47 Temperature Pulse Rate 54 L 64 59 L Respiratory Rate 15 15 17 Blood Pressure 116/51 L 124/92 H 119/87 Pulse Oximetry 100 96 01/05/24 14:39 01/05/24 15:41 Temperature 36.8 C 36.7 C Pulse Rate 51 L 50 L Respiratory Rate 18 18 Blood Pressure 129/70 140/70 Pulse Oximetry 100 100 Exam Const: General: comfortable, no acute distress, alert and awake Orientation/consciousness: patient oriented x3 HENMT: Head: normal to inspection Eyes: General: appearance normal, both eyes and all related structures Pupils: Equal, round and reactive pupils present Neck: Neck: normal visual inspection, supple and no JVD Carotids: normal carotid upstroke Chest: Other: Reproducible chest wall pain to palpation. Resp: Effort & Inspection: normal respiratory effort Auscultation: clear to auscultation bilaterally and crackles Cardio: Rate: regular rate Rhythm: regular rhythm Heart sounds: S1 normal heart sound present, S2 normal heart sound present and no murmurs GI: Auscultation: normal bowel sounds Skin: General skin exam: normal color Neuro: General: patient oriented x3 Cranial nerves: Yes Equal, round and reactive pupils present Extrem: General: normal to inspection Other: No edema, warm and well perfused however right DP pulse is weaker than left DP. Psych: Appearance: grossly normal Mental Status: mental status grossly normal Results Labs and Meds 01/05/24 08:43 01/05/24 08:43 Lab results: Cardiac Enzymes 01/05/24 01/05/24 01/05/24 Range/Units 08:43 11:44 14:41 AST 32 (14-36) U/L Troponin I < 0.012 < 0.012 < 0.012 (0.000-0.034) ng/mL Coagulation 01/05/24 Range/Units 08:43 PT 12.2 (11.1-14.7) Seconds APTT 28.3 (22.3-36.8) Seconds CBC 01/05/24 Range/Units 08:43 WBC 10.0 (4.5-10.0) K/mm3 RBC 4.96 (4.2-5.4) M/mm3 Hgb 15.7 H (12.0-15.0) g/dL Hct 46.7 (37.0-47.0) % Plt Count 282 (150-375) k/mm3 Lymph # (Auto) 3.79 H (0.9-3.2) K/mm3 [place] # (Auto) 0.7 H (0.1-0.6) K/mm3 Eos # (Auto) 0.2 (0-0.3) K/mm3 Baso # (Auto) 0.0 (0.0-0.1) K/mm3 Comprehensive Metabolic Panel 01/05/24 Range/Units 08:43 Sodium 141 (137-145) mmol/L Potassium 4.1 (3.4-5.0) mmol/L Chloride 104 (98-107) mmol/L Carbon Dioxide 25 (22-30) mmol/L BUN 18 H (7-17) mg/dL Creatinine 0.70 (0.7-1.0) mg/dL Glucose 129 H (65-110) mg/dL Calcium 9.9 (8.4-10.2) mg/dL AST 32 (14-36) U/L ALT 40 H (6-35) U/L Alkaline Phosphatase 121 (38-126) U/L Total Protein 8.0 (6.3-8.2) g/dL Albumin 4.9 (3.5-5.1) g/dL Patient Weight 01/05/24 23:59 Weight 65.5 kg
[2024-01-05] MEDS: BELLADONNA ALK/PHENOB ELIX 10 ML, MAG HYDROX/ALUMINUM HYD/SIMETH 30 ML, LIDOCAINE HCL 2... PO (17:56)
--- NOTE | 2024-01-05 18:49 | ADMGEN ---
This patient, Carrie Rooney, was admitted to IMU Room 210-01 at 1435. Patient/family oriented to hospital policies and general routines including ID bracelet, bed and alarms, visiting hours, pain management, procedures, bathroom and other care routines, personal items, smoking policy, room service/diet, and visiting hours. Information on how to activate the Rapid Response Team has been discussed. Patient/Family are encouraged to report perceived risks to care and to ask questions if they do not understand what they are told or what they should do.
[2024-01-05] MEDS: KETOROLAC 30 MG/ML VIAL (*BKC) IV PUSH (20:10)
[2024-01-05] MEDS: RANOLAZINE 500 MG TAB.ER.12H PO (20:10)
[2024-01-06] VITALS (8 sets, daily range): BP systolic 140–162; BP diastolic 64–68; PULSE 46–66; RESP 18–20; TEMP 36.6–37; O2SAT 97–98
[2024-01-06 05:07] LABS: Basophils Percent Auto 0.4 % (0.2-1.2); Eosinophils Absolute Auto 0.3 K/mm3 (0-0.3); Eosinophils Percent Auto 3.1 % (0-4.4); Hematocrit 45.3 % (37.0-47.0); Hemoglobin 15.1 g/dL (12.0-15.0); Immature Granulocyte Absolute 0.03 K/mm3 (0.00-0.031); Immature Granulocyte Percent A 0.3 % (0-0.5); Lymphocytes Absolute Auto 3.27 K/mm3 (0.9-3.2); Lymphocytes Percent Auto 36.3 % (18.3-44.2); Mean Corpuscular HGB Conc 33.3 g/dl (32-36); Mean Corpuscular Hemoglobin 31.7 pg (26-34); Mean Platelet Volume 10.1 fl (7.4-10.4); Monocytes Absolute Auto 0.8 K/mm3 (0.1-0.6); Monocytes Percent Auto 8.3 % (2.6-8.5); Neutrophils Absolute Auto 4.6 K/mm3 (1.3-6.7); Neutrophils Percent Auto 51.6 % (45.5-73.1); Platelet Count Result 246 k/mm3 (150-375); Red Blood Count 4.77 M/mm3 (4.2-5.4)
[2024-01-06 05:17] LABS: Hemoglobin A1C 6.6 % (<5.7)
[2024-01-06 05:19] LABS: Anion Gap 8 mmol/L (4-12); Blood Urea Nitrogen 18 mg/dL (7-17); Calcium 9.2 mg/dL (8.4-10.2); Carbon Dioxide 23 mmol/L (22-30); Chloride 108 mmol/L (98-107); Cholesterol 181 mg/dL (0-200); Estimated CRCL calculation 60 ml/min; Estimated Glomerular Filt Rate > 60; Glucose 142 mg/dL (65-110); HDL Direct 50 mg/dL; Potassium 4.6 mmol/L (3.4-5.0); Sodium 139 mmol/L (137-145); Triglycerides 169 mg/dL (<150)
[2024-01-06 05:30] LABS: LDL Cholesterol Direct 96 mg/dL
[2024-01-06] MEDS: SALINE 0.65% NAS SOLN 44 ML BTL 2 SPRAY NASAL (08:33)
[2024-01-06] MEDS: RANOLAZINE 500 MG TAB.ER.12H PO (08:33)
[2024-01-06] MEDS: ISOSORBIDE MONONITRATE 30 MG TAB.ER.24H PO (08:33)
[2024-01-06] MEDS: amLODIPine BESYLATE 5 MG TABLET PO (08:33)
[2024-01-06] MEDS: ASPIRIN 81 MG ENTERIC TABLET PO (08:33)
[2024-01-06] MEDS: ERGOCALCIFEROL 50,000 UNITS CAPSULE 50000 UNITS PO (08:35)
[2024-01-06] MEDS: UMECLIDINIUM BROMIDE 62.5 MCG ELLIPTA 1 PUFF INHALATION (08:38)
--- NOTE | 2024-01-06 10:40 | PM.DS ---
DS: Admitting Diagnosis Discharge Date 01/06/2024 Admitting Diagnosis Chest pain DS: Discharge Diagnosis Discharge Diagnosis (1) Chest pain: Qualifiers: Chest pain type: unspecified Qualified Code(s): R07.9 - Chest pain, unspecified Code(s): R07.9 - Chest pain, unspecified Status: Acute (2) HTN (hypertension): Qualifiers: Hypertension type: primary hypertension Qualified Code(s): I10 - Essential (primary) hypertension Code(s): I10 - Essential (primary) hypertension Status: Chronic DS: Summary Hospital Course Hospital Course: 63 y/o F presents here with chest pain with PMH of angina pectoralis, anxiety/depression, COPD, breast cancer s/p lumpectomy, migraines, current smoker, HTN, and psoriasis. The patient presents here from home for further evaluation of chest pain. She reports acute onset of left sided chest pain at 6:30 a.m. this morning while she was walking into work. She described the chest pain as a soreness, tightness, heaviness, radiation to her left axilla, intermittent, aggravated by palpation of the chest, and alleviated partially by ASA and nitro (continues to have episodes, pain less severe). Episodes are lasting only a few seconds and resolve without intervention. The chest pain was accompanied by mild dizziness, diaphoresis, fatigue, and mild shortness of breath. She denies nausea, vomiting, fever, chills, body aches, and palpitations. After arrival to the emergency department while she was resting in the stretcher the chest pain reoccurred. She has a history of angina for which she has p.r.n. nitroglycerin. The patient did not have any available to her at the time she developed chest pain, however historically the nitro has helped to alleviate her pain. 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 Patient had a heart catheterization approximately 2 years ago which showed no CAD or blockage. She does have a significant cardiac family history - father from a ID in his late 50's and her daughter had an ID requiring a stent at age 35. The patient has no personal history of ID or cardiac stent placement. The patient is reporting increased stress recently. Initial VS at presentation: 97.8? F, HR 67, RR 18, 179/85, and 100% on RA. ED workup showed: With no leukocytosis, hemoglobin 15.7, normal coags, no significant electrolyte derangements, creatinine 0.7 and GFR >60, glucose 129, initial troponin negative. Initial EKG showed NSR, rate 63, good R-wave progression, no T-wave inversions, borderline left axis deviation. CXR showed no acute cardiopulmonary disease. Patient was admitted for observation. Cardiology was consulted. Serial troponin was performed which remain negative ruling out acute coronary syndrome. Chest pain atypical in nature. Patient was treated with a GI cocktail with relief. Cardiology okay with discharge to follow-up as outpatient and to consider outpatient ischemic evaluation. She remained stable during her observation period in the hospital with no further recurrence of chest pain. She was added on anti anginal medications which include Imdur and Ranexa by Cardiology team. She will follow-up with cardiology as an outpatient basis. Time Spent with Patient Time attestation: Total time spent providing and/or coordinating discharge services: 35 minutes Exam Narrative: GENERAL: Well-appearing, well-nourished, and in no acute distress. HEAD: Normocephalic, atraumatic. EYES: Non injected, non icteric ENT: Nares clear, no rhinorrhea or epistaxis. NECK: Supple. CHEST: Speaking in full sentences. No respiratory distress. lungs clear to auscultation bilaterally without wheezes crackles, or focal consolidation. HEART: Regular rate and rhythm. . ABDOMEN: Soft, nondistended. EXTREMITIES: Normal range of motion. No lower extremity edema. SKIN: Warm, dry, no rash. NEURO: No focal deficits. Alert and oriented x3. PSYCH: Normal mood and affect. DS: Data Data Completed and Pending Labs on day of discharge: Labs from last 24 hours 01/06/24 01/05/24 01/05/24 04:55 14:41 11:44 WBC 9.0 RBC 4.77 Hgb 15.1 H Hct 45.3 MCV 95.0 MCH 31.7 MCHC 33.3 RDW 12.0 Plt Count 246 MPV 10.1 Immature Gran % (Auto) 0.3 Neut % (Auto) 51.6 Lymph % (Auto) 36.3 Travis % (Auto) 8.3 Eos % (Auto) 3.1 Baso % (Auto) 0.4 Lymph # (Auto) 3.27 H Travis # (Auto) 0.8 H Eos # (Auto) 0.3 Baso # (Auto) 0.0 Abs Immat Gran (auto) 0.03 Absolute Neuts (auto) 4.6 Absolute Nucleated RBC 0.000 Nucleated RBC % 0.0 Sodium 139 Potassium 4.6 Chloride 108 H Carbon Dioxide 23 Anion Gap 8 BUN 18 H Creatinine 0.70 Estim Creat Clear Calc 60 Estimated GFR > 60 Glucose 142 H Hemoglobin A1c 6.6 H Calcium 9.2 Troponin I < 0.012 < 0.012 Triglycerides 169 H Cholesterol 181 LDL Cholesterol Direct 96 HDL Direct 50 Imaging Radiologist's impression: ITS Impressions Chest X-Ray 01/05/24 09:30 IMPRESSION: 1. No acute cardiopulmonary disease. Discharge Plan Discharge Attending physician on discharge: Eric Chin Consulting providers: Jason Medellin Discharging Clinician: Eric Chin Patient Disposition: Home, Self-Care Activity: as tolerated Diet: heart healthy Patient Instructions: Antibiotic Form Stand Alone Forms: General Discharge Information, Work/School Release IP Follow-up/Referrals: Jason Medellin MD [Physician] - Call for Appointment Discharge Medications: New aspirin 81 mg Tablet,Delayed Release (Dr/Ec) 81 mg PO QAM Qty: 30 0RF ranolazine 500 mg tablet extended release 12 hr 500 mg PO Q12H Qty: 60 0RF isosorbide mononitrate 30 mg Tablet Extended Release 24 Hr 30 mg PO QAM Qty: 30 0RF Continued ergocalciferol (vitamin D2) 1,250 mcg (50,000 unit) capsule See Rx Instructions .ROUTE .COMPLEX Rx Instructions: Takes M// baclofen 10 mg tablet 10 mg PO TID PRN (Reason: muscle pain) Qty: 15 0RF albuterol sulfate 90 mcg/actuation Hfa Aerosol Inhaler 2 puff INHALATION QID PRN (Reason: Shortness Of Breath) cyclobenzaprine 10 mg tablet 10 mg PO TID PRN (Reason: muscle spasm) Qty: 20 0RF nitroglycerin 0.3 mg tablet, sublingual 0.3 mg sublingual PRN PRN (Reason: Chest Pain) amlodipine 5 mg tablet 5 mg PO DAILY Nasal [place] (sodium chloride) 0.65 % Aerosol,[place] 2 spray INTRANASAL DAILY Rx Instructions: while awake tiotropium bromide [Spiriva with HandiHaler] 18 mcg capsule, w/inhalation device 1 cap INHALATION DAILY Date of admission: 01/05/24 13:02 Primary Care Provider: Jake,Alanna Hernandez Admitting Provider: Merlni Erickson Attending physician on admission: Merlin Erickson Condition: Stable
== END 2024-01-06 11:14 | disposition home or self-care (01) ==
LOC: ANHED 08:55 → ANHIMU 14:08
PROVIDERS: Student in an Organized Health Care Education/Training Program; Admitting Provider Internal Medicine; Emergency Provider Student in an Organized Health Care Education/Training Program; PCP Nurse Practitioner Adult Health; Visit Provider Internal Medicine
DX: R07.9 Chest pain, unspecified (principal); I10 Essential (primary) hypertension; I25.10 Atherosclerotic heart disease of native coronary artery without angina pectoris; J44.9 Chronic obstructive pulmonary disease, unspecified; F17.210 Nicotine dependence, cigarettes, uncomplicated; F41.9 Anxiety disorder, unspecified; F32.A Depression, unspecified; G62.9 Polyneuropathy, unspecified; M19.90 Unspecified osteoarthritis, unspecified site; G43.909 Migraine, unspecified, not intractable, without status migrainosus; L40.9 Psoriasis, unspecified; Z79.51 Long term (current) use of inhaled steroids; Z79.899 Other long term (current) drug therapy; Z85.3 Personal history of malignant neoplasm of breast
CPT/HCPCS: 36415; 71046; 80048; 80053; 80061; 83036; 83690; 84484; 85025; 85610; 85730; 93005; 94640; 96374; 99285; A9270; J1885

== ENCOUNTER 2024-04-22 13:38 | Emergency (ER) | payer OTHER, SELFPAY ==
--- NOTE | 2024-04-22 13:48 | ED.URI ---
HPI - URI/Sore Throat General Chief Complaint: Upper Respiratory Infection Stated Complaint: Cough Time Seen by Provider: 04/22/24 13:48 Source: patient, RN notes reviewed and old records reviewed Mode of arrival: ambulatory Limitations: no limitations History of Present Illness HPI Narrative: Patient presents with complaints of flu-like symptoms that have been present since Tuesday. She reports that she has been taking Tylenol and Mucinex. States that she has had some wheezing, but also states that she is out of her albuterol inhaler. T-max of 102?. No fever on arrival. She is not any obvious distress. Related Data Home Medications ?Medication ?Instructions ?Recorded ?Confirmed ?Last Taken ?Type albuterol sulfate 90 mcg/actuation 2 puff inhalation QID PRN 03/31/19 01/05/24 Unknown History aerosol inhaler Shortness Of Breath amlodipine 5 mg tablet 5 mg PO DAILY 09/20/21 01/05/24 Unknown History nitroglycerin 0.3 mg sublingual 0.3 mg sublingual PRN PRN Chest 09/20/21 01/05/24 Unknown History tablet Pain ergocalciferol (vitamin D2) 1,250 See Rx Instructions .Route .COMPLEX 08/17/22 01/05/24 Unknown History mcg (50,000 unit) capsule sodium chloride 0.65 % nasal spray 2 spray intranasal DAILY 01/05/24 01/05/24 Unknown History aerosol (Nasal [place] (sodium chloride)) tiotropium bromide 18 mcg capsule 1 cap inhalation DAILY 01/05/24 01/05/24 Unknown History with inhalation device (Spiriva with HandiHaler) omeprazole 20 mg capsule,delayed mg 04/22/24 Unknown History release Allergies Allergy/AdvReac Type Severity Reaction Status Date / Time No Known Allergies Allergy Verified 04/22/24 13:41 Review of Systems Review of Systems: All systems reviewed & are unremarkable except as noted in HPI and below Constitutional: Constitutional: Reports no additional constitutional complaints, Reports chills, Reports fever(s) and Reports headache(s) ENT: Reports system reviewed and no additional complaints, except as documented, Reports nasal congestion and Reports nasal discharge Cardiovascular: Cardiovascular: Reports no additional cardiovascular complaints Respiratory: Respiratory: Reports no additional respiratory complaints Gastrointestinal: Gastrointestinal: Reports no additional gastrointestinal complaints PMFSH Past Medical History Medical History Angina pectoris Anxiety Arthritis Carpal tunnel syndrome, left COPD (chronic obstructive pulmonary disease) Current smoker Depression Eczema HTN (hypertension) Hx of breast cancer Hx of migraines Peripheral neuropathy Pneumonia Psoriasis Surgical History Surgical History Hx of right knee surgery History of carpal tunnel release lt History of bladder surgery Bladder tied up x4 History of hysterectomy History of lumpectomy Hx of cardiac cath Family History Family History Father Acute myocardial infarction <65yo Brain tumor Daughter Acute myocardial infarction, Onset Age: 36 Diabetes mellitus Polycythemia vera Sibling Diabetes mellitus Social History Social History Smoking packs per day: 0.5 Smoking cigarettes per day: 10.0 Years smoked: 49 Smoking pack-years: 24.50 Smoking status: Current every day smoker Tobacco type: cigarettes Alcohol intake: never Substance use: never Do You Feel Safe in your Home?: Yes Lack of Transportation: No Lack of Food: Never True Current Housing: I Have Housing Concerned About Future Housing: No Difficulty Paying Gas/Electric Bills: No Difficulty Paying for Meds: No Currently Unemployed: No Education: High School Diploma/GED Difficulty w/ Childcare or Family Care: No Living arrangements: with family Additional living arrangements comments: niece and granddaughter currently living with her which is a stressor as they fight Occupation/Education: occupation Additional occupation/education comments: works in a [employer] Gender identity (if verbalized by the patient): Female Spiritual care concerns: No Comments At the time of my signature, I reviewed and agree with the nursing past medical, surgical, social, and family history. There is no relevant family history pertinent to the patient complaint. Exam Const: General: cooperative, no acute distress, alert and awake Orientation/consciousness: oriented to person, oriented to place and oriented to time HENMT: Head: normal to inspection Mouth: Yes moist mucous membranes Resp: Effort & Inspection: normal respiratory effort and able to speak in complete sentences Auscultation: clear to auscultation bilaterally, no crackles, no rales, no rhonchi, no wheezes and diminished lung sounds Cardio: Palpation: normal PMI Rate: regular rate Rhythm: regular rhythm Heart sounds: S1 normal heart sound present and S2 normal heart sound present Neuro: General: oriented to person, oriented to place and oriented to time Cranial nerves: Yes CN's II-XII intact bilaterally Psych: Appearance: grossly normal Thought process: Normal thought process present Insight: Good insight present (Psych) Judgement: Good judgement present (Psych) Course Course Level of Care: Express Care Visit Vital Signs Vital signs: Reviewed MDM - URI/Sore Throat MDM Narrative Medical decision making narrative: Overall reassuring exam. Patient is nontoxic appearing, stable for discharge home. Influenza A positive. Start Tamiflu and prednisone. Albuterol is refilled. Work note provided. Discharge instructions reviewed with patient, as well as provided in writing per nursing staff. The instructions also include specific and strict return/GO TO THE ER as well as f/u information. All questions have been answered, and the patient deny any further questions with discharge and discharge plan. Some parts of this dictation were generated by voice recognition software and may contain typographical and/or grammatical inaccuracies. Differential Diagnosis Differential diagnosis: Likely upper respiratory infection, otitis media, viral infection and influenza Medical Records Attestation: I reviewed the patient's medical records. Lab Data Attestation: I reviewed the patient's lab results. Discharge Plan Discharge Clinical Impression: Influenza Patient Disposition: Home, Self-Care Condition: Stable Instructions: Antibiotic Form, Influenza (ED) Additional Instructions: Take medication as prescribed. Follow-up with primary care provider. Emergency department for new or worse symptoms Patient Language: Israeli Prescriptions: New prednisone 50 mg tablet 50 mg PO DAILY Qty: 5 0RF albuterol sulfate [Ventolin HFA] 90 mcg/actuation HFA aerosol inhaler 2 puff inhalation QID PRN (Reason: shortness of breath or wheezing) Qty: 8.5 0RF oseltamivir [Tamiflu] 75 mg capsule 75 mg PO Q12H 5 Days Qty: 10 0RF No Action ergocalciferol (vitamin D2) 1,250 mcg (50,000 unit) capsule See Rx Instructions .ROUTE .COMPLEX Rx Instructions: Takes M/W/F albuterol sulfate 90 mcg/actuation Hfa Aerosol Inhaler 2 puff INHALATION QID PRN (Reason: Shortness Of Breath) nitroglycerin 0.3 mg tablet, sublingual 0.3 mg sublingual PRN PRN (Reason: Chest Pain) amlodipine 5 mg tablet 5 mg PO DAILY omeprazole 20 mg capsule,delayed release(DR/EC) Nasal [place] (sodium chloride) 0.65 % Aerosol,[place] 2 spray INTRANASAL DAILY Rx Instructions: while awake tiotropium bromide [Spiriva with HandiHaler] 18 mcg capsule, w/inhalation device 1 cap INHALATION DAILY isosorbide mononitrate 30 mg Tablet Extended Release 24 Hr 30 mg PO QAM Qty: 30 0RF aspirin 81 mg Tablet,Delayed Release (Dr/Ec) 81 mg PO QAM Qty: 30 0RF ranolazine 500 mg tablet extended release 12 hr 500 mg PO Q12H Qty: 60 0RF Follow-up/Referrals: Jake,Alanna Hernandez APRN [Primary Care Provider] - 1 Week Stand Alone Forms: Work/School Release IP Time of Disposition: 13:56
[2024-04-22 13:51] VITALS: BP 146/83; PULSE 88; RESP 14; TEMP 37.2; O2SAT 96
[2024-04-22 14:08] LABS: EDCOVIDSCREEN Negative (Negative); EDINFLUASCREEN Positive (Negative); EDINFLUBSCREEN Negative (Negative)
== END 2024-04-22 14:10 | disposition home or self-care (01) ==
PROVIDERS: Emergency Provider Nurse Practitioner Family; PCP Nurse Practitioner Adult Health
DX: J10.1 Influenza due to other identified influenza virus with other respiratory manifestations (principal); Z20.822 Contact with and (suspected) exposure to COVID-19; F17.210 Nicotine dependence, cigarettes, uncomplicated; J44.9 Chronic obstructive pulmonary disease, unspecified; I10 Essential (primary) hypertension; I20.9 Angina pectoris, unspecified; G62.9 Polyneuropathy, unspecified; M19.90 Unspecified osteoarthritis, unspecified site; L40.9 Psoriasis, unspecified; Z85.3 Personal history of malignant neoplasm of breast
CPT/HCPCS: 87426; 87804; 99213; G0463

== ENCOUNTER 2024-12-21 17:38 | Emergency (ER) | payer OTHER, SELFPAY ==
--- NOTE | ~2024-12-21 | XR_ITS ---
EXAMINATION: XR thoracic spine 3V, XR cervical spine 4-5V DATE: 12/21/2024 18:23 INDICATION: Cervical and thoracic pain TECHNIQUE: 1. AP, lateral, left and right oblique and odontoid views of the cervical spine were obtained. 2. One AP, lateral and lateral swimmer's views of the thoracic spine were obtained. COMPARISON: None. FINDINGS: Cervical spine: Odontoid is intact. Normal atlantoaxial interval. 13 degree dextrocurvature. Straightening of the normal cervical lordosis. Vertebral body and disc heights are normal. Prominent anterior bridging osteophytes at C5-C6 and C6-C7. Multilevel moderate cervical facet and uncovertebral osteoarthritis. On the oblique images there is suggestion of mild neural from stenosis bilaterally at C3-C4, C4-C5 and C5-C6. Thoracic spine: 12 3 thoracic levo scoliosis. Sagittal alignment is normal. Vertebral body heights are normal. Multilevel mild disc height loss throughout the mid to lower thoracic spine. Visualized portion of the lungs are clear with no pleural effusion. IMPRESSION: 1. 13 degrees cervical dextrocurvature with mild spondylosis and multilevel moderate facet and uncovertebral osteoarthritis. 2. 12 degrees thoracic levoscoliosis with mild spondylosis. Reviewed, dictated and finalized at location A. IMPRESSION: 1. 13 degrees cervical dextrocurvature with mild spondylosis and multilevel mod erate facet and uncovertebral osteoarthritis. 2. 12 degrees thoracic levoscoliosis with mild spondylosis.
[2024-12-21 17:45] VITALS: BP 129/65; PULSE 71; RESP 16; TEMP 36.4; O2SAT 100
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
== END 2024-12-21 19:02 | disposition home or self-care (01) ==
PROVIDERS: Emergency Provider Nurse Practitioner; PCP Physician Assistant
DX: S16.1XXA Strain of muscle, fascia and tendon at neck level, initial encounter (principal); V43.52XA Car driver injured in collision with other type car in traffic accident, initial encounter; F17.210 Nicotine dependence, cigarettes, uncomplicated; I20.9 Angina pectoris, unspecified; I10 Essential (primary) hypertension; J44.9 Chronic obstructive pulmonary disease, unspecified; G62.9 Polyneuropathy, unspecified; M19.90 Unspecified osteoarthritis, unspecified site; Z79.82 Long term (current) use of aspirin
CPT/HCPCS: 72050; 72072; 99213; 99214; G0463

== ENCOUNTER 2024-12-25 09:15 | Emergency (ER) | payer OTHER, SELFPAY ==
[2024-12-25] VITALS (7 sets, daily range): BP systolic 125–157; BP diastolic 59–85; PULSE 51–61; RESP 13–20; TEMP 36.4; O2SAT 97–100
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
--- NOTE | ~2024-12-25 | XR_ITS ---
EXAMINATION: XR skull <4V DATE: 12/25/2024 13:02 INDICATION: Assess for metallic densities at the orbits. TECHNIQUE: Lateral, AP and Do views of the skull were obtained. COMPARISON: None. FINDINGS: Dental disease with few dental restorations. No other radiopaque foreign bodies identified in the head or neck. No fractures identified. Nasal septum is midline. No air-fluid levels appreciated within the paranasal sinuses. Mastoid air cells are well-aerated. Moderate to severe lower cervical spondylosis with severe multilevel right-sided prominent cervical facet osteoarthritis. IMPRESSION: 1. No radiopaque foreign bodies at the orbits. Reviewed, dictated and finalized at location A. YARD MANAGER
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
--- NOTE | ~2024-12-25 | MR_ITS ---
EXAMINATION: MR lumbar spine wo con DATE: 12/25/2024 14:21 INDICATION: Low back pain with stenosis. Bowel and bladder incontinence. TECHNIQUE: Magnetic resonance imaging (MRI) of the lumbar spine was performed without intravenous contrast. Sequences included sagittal T2-weighted FSE, sagittal T2-weighted FS FSE, sagittal T1-weighted FSE, and axial T2-weighted FSE. COMPARISON: CT dated 12/25/2024 FINDINGS: A degree lumbar levocurvature. 2 mm retrolisthesis L2 on L3. Vertebral body heights are normal. Moderate to severe right-sided predominant disc height loss at L2-L3 and moderate right-sided prominent disc height loss at L3-L4 both levels with associated fibrofatty degenerative endplate changes. Moderate disc height loss at L4-L5 with fibrofatty degenerative endplate changes posteriorly at L4. Marrow signal is otherwise normal throughout. Moderate disc height loss at T11-T12, L1-L2 and L5-S1. The conus medullaris terminates at L1. There is normal signal in the caudal spinal cord. 2.7 cm right renal cyst. The following disc levels are specifically discussed: T12-L1: The disc does not extend beyond the endplate margin. There is moderate to severe bilateral facet joint osteoarthritis. There is no neural foraminal stenosis. There is no central canal stenosis. L1-L2: Disc is bulging. There is moderate to severe bilateral facet joint osteoarthritis. There is mild bilateral neural foraminal stenosis. There is mild central canal stenosis. L2-L3: Disc is bulging with annular fissure. There is hypertrophy of the ligamentum flavum. There is severe right and mild left facet joint osteoarthritis. There is moderate to severe right and moderate left neural foraminal stenosis. There is mild central canal stenosis along with narrowing of the lateral recesses, mild on the left and moderate on the right. L3-L4: Disc is bulging with annular fissure. There is hypertrophy of the ligamentum flavum. There is moderate to severe left and severe right facet joint osteoarthritis. There is mild to moderate bilateral neural foraminal stenosis. There is mild central canal stenosis. L4-L5: Disc is bulging with annular fissure. There is hypertrophy of the ligamentum flavum. There is severe bilateral facet joint osteoarthritis. There is mild bilateral neural foraminal stenosis. There is moderate central canal stenosis including moderate narrowing of the left and right lateral recesses. L5-S1: Disc is mildly bulging. There is severe bilateral facet joint osteoarthritis. There is mild bilateral neural foraminal stenosis. There is minimal central canal stenosis. IMPRESSION: 1. Moderate to severe lumbar spondylosis most notable for moderate to severe neural foraminal stenosis on the right at L2-L3 and moderate central canal stenosis at L4-L5. Reviewed, dictated and finalized at location A. STOP CHECKER IMPRESSION: 1. Moderate to severe lumbar spondylosis most notable for moderate to severe ne ural foraminal stenosis on the right at L2-L3 and moderate central canal stenos is at L4-L5.
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
[2024-12-25 10:15] LABS: Hematocrit 41.2 % (37.0-47.0); Hemoglobin 13.7 g/dL (12.0-15.0); Immature Granulocyte Percent A 0.2 % (0-0.5); Lymphocytes Absolute Auto 3.80 K/mm3 (0.9-3.2); Mean Corpuscular HGB Conc 33.3 g/dl (32-36); Mean Corpuscular Hemoglobin 30.8 pg (26-34); Mean Corpuscular Volume 92.6 fl (80-100); Nucleated Red Blood Cells Absolute Auto 0.000 K/mm3 (0.0-0.012); Nucleated Red Blood Cells Perc 0.0 % (0.0-0.2); Platelet Count Result 232 k/mm3 (150-375); Red Blood Count 4.45 M/mm3 (4.2-5.4); White Blood Count 9.7 K/mm3 (4.5-10.0)
--- OUTSIDE RECORDS SUMMARY | 2024-12-25 10:15 | XMS_ITS | Clinical Summary ---
Author Organization [facility] Address [facility] [place] [address] Care Team Providers Care Hat Sprayer Name Role Phone Raffaele Bridges Primary Care Provider [phone] Allergies No known active allergies Medications esomeprazole (NEXIUM) 40 MG capsule Take 40 mg by mouth daily. 11/11/2021 Active Social History Tobacco Use Types Packs/Day Years Used Date Smoking Tobacco: Every Day Cigarettes Smokeless Tobacco: Never Tobacco Cessation:Ready to Q uit: Not Asked; Counseling Given: Not Answered Comments Unknown Sex and Gender Information Value Date Recorded Sex Assigned at Not on file Legal Sex Female 2:47 PM SHOTBLAST OPERATOR Gender Identity Not on file Sexual Orientation Not on file Last Filed Vital Signs Vital Sign Reading Time Taken Comments Blood Pressure 154/90 04/18/2022 3:09 PM SHOTBLAST OPERATOR Pulse 74 04/18/2022 3:09 PM SHOTBLAST OPERATOR Temperature 36.1 C (97 F) 04/18/2022 3:09 PM SHOTBLAST OPERATOR Respiratory Rate 20 04/18/2022 3:09 PM SHOTBLAST OPERATOR Oxygen Saturation 99% 04/18/2022 3:09 PM SHOTBLAST OPERATOR Inhaled Oxygen Concentration - - Weight 4.536 kg (10 lb) 04/18/2022 3:09 PM SHOTBLAST OPERATOR Height 162.6 cm (5' 4) 04/18/2022 3:09 PM SHOTBLAST OPERATOR Body Mass Index 1.72 04/18/2022 3:09 PM SHOTBLAST OPERATOR Plan of Treatment Health Maintenance Due Date Last Done Comments Colorectal Cancer Screening Colonoscopy (10 Years) 1958 Hepatitis C 1976 Mammogram Screening 1998 Zoster Vaccines (2 of 2) 07/25/2018 05/30/2018 Pneumococcal Vaccine: 50+ Years (2 of 2 - PCV) 02/28/2019 02/28/2018, 12/12/2007 Dexa Scan (General) 2023 COVID-19 Vaccine (4 - season) 2024 02/22/2021, 07/01/2020, 06/08/2020 Influenza Adult (#1) 2024 12/21/2021, 11/13/2020, 11/19/2019, Additional history exists DTaP, Tdap and Td Vaccines (2 - Td or Tdap) 05/30/2028 05/30/2018 RSV Immunization or 60+ Years (1 - 1-dose 75+ series) 2033 Hepatitis A Vaccines Aged Out No long er eligible based on patient's age to complete this topic Meningococcal B Vaccine Aged Out No l onger eligible based on patient's age to complete this topic Meningococcal Vaccine Aged Out No sherrie jay eligible based on patient's age to complete this topic RSV Immunizations Under 20 Months Aged Out No longer eligible based on patient's age to complete this topic Insurance [facility] [employer] Care Teams Hat Sprayer Relationship Specialty Start Date End Date Raffaele Bridges PA [address] [place] [id number] PCP - General PHYSICIAN BIZTALK SOFTWARE DEVELOPER 04/18/22
--- OUTSIDE RECORDS SUMMARY | 2024-12-25 10:15 | XMS_ITS | Clinical Summary ---
Author Organization [facility] Care Team Providers Care Wall Man Name Role Phone Unavailable Primary Care Provider Unavailabl e Social History Tobacco Use Types Packs/Day Years Used Date Smoking Tobacco: Never Assessed Comments Unknown Sex and Gender Information Value Date Recorded Sex Assigned at Not on file Legal Sex Female 8:59 AM GREY IRON MOLDER Gender Identity Not on file Sexual Orientation Not on file Plan of Treatment Health Maintenance Due Date Last Done Comments Hepatitis C Virus (HCV) Screening 1960 TdaP Immunization 1958 Cologuard 2003 Colonoscopy 2003 Colorectal Cancer Screening 2003 Immunochemical Fecal Occult Blood 2003 Pneumococcal Immunization (5 0+ years) (1 of 1 - PCV) 2008 Zoster Immunization (1 of 2) 2008 Influenza Immunization (#1) 2024 01/15/2013 SARS-COV-2 Immunization (1 - 2023- season) 2024 Respiratory Syncytial Virus (RSV) Immunization (Adult) (1 - 1-dose 75+ series) 2033 Hepatitis B Immunization Aged Out No longer eligible based on patient's age to complete this topic Human Papillomavirus (HPV) Immunization Aged Out No longer eligible b ased on patient's age to complete this topic Meningococcal Immunization (ACWY) Aged Out No longer eligible based on patient's age to complete this topic Rotavirus Immunization Aged Out No lo nger eligible based on patient's age to complete this topic
--- OUTSIDE RECORDS SUMMARY | 2024-12-25 10:15 | XMS_ITS | Clinical Summary ---
Author Organization [facility] [employer] [place] Address [address] [facility] [place] [address] Care Team Providers Care Speech Therapist Early Intervention Name Role Phone Unavailable Primary Care Provider Unavailabl e Allergies Active Allergy Reactions Criticality Noted Date Comments Chlorpheniramine-Pseudoephed Unknown 020 Medications fluticasone propionate (FLONASE) 50 mcg/spray [place], Suspension nasal inhalerIndications :Upper respiratory tract infection, unspecified type Administer 2 Sprays in each nostril daily. 16 Gram 11/12/19 22 Active Additional Information Patient not taking.Reported on 11/01/2024 nicotine (NICODERM CQ) 21 mg/24 hr patch Apply 1 Patch to skin as directed daily at bedtime. 90 Patch 1 04/14/19 24 Active nicotine polacrilex (NICORETTE) 4 mg Gum 1 Each (4 mg) by See Admin Instructions route every 2 hours as needed for Smoking Cessation. 50 Each 2 04/14/19 24 Active Additional Information Patient not taking.Reported on 09/18/2024 tiotropium (SPIRIVA) 18 mcg capsuleIndications :Chronic obstructive pulmonary disease, unspecified COPD type (CMS/HCC) Take 1 Capsule (18 mcg) by inhalation daily. 30 Capsule 5 08/22/19 24 Active aspirin (ECOTRIN EC) 81 mg Tablet, Delayed Release (E.C.) take 1 tablet by mouth in the morning 01/06/20 24 Active cetirizine (ZyrTEC) 10 mg tablet Take 1 Tablet (10 mg) by mouth daily. 90 Tablet 08/09/19 25 Active isosorbide mononitrate (IMDUR) 30 mg Extended Release 24 hour tabletIndications: Arteriosclerotic cardiovascular disease (ASCVD) Take 1 Tablet (30 mg) by mouth daily in the morning. 90 Tablet 1 08/09/19 25 Active Blood Glucose Test Strip Check home glucose 1-2 times per day 07/04/19 25 026 Active OneTouch Ultra2 Meter 07/04/19 Active OneTouch Delica Plus Lancet 30 gauge 07/04/19 Active metFORMIN (GLUCOPHAGE XR) 500 mg Extended Release 24 hour tablet Take 500 mg by mouth daily with breakfast. 07/04/19 25 026 Active pantoprazole (PROTONIX) 40 mg Tablet, Delayed Release (E.C.) Take 40 mg by mouth daily before breakfast. 07/24/19 Active albuterol sulfate HFA 90 mcg/actuation aerosol inhalerIndications :Chronic obstructive pulmonary disease, unspecified COPD type (CMS/HCC) Take 2 Puffs by inhalation every 6 hours as needed for Shortness of Breath or Wheezing. 8.5 Gram 09/19/19 25 Active fluticasone propionate (FLONASE) 50 mcg/spray [place], Suspension nasal inhaler Administer 2 Sprays in each nostril daily. 16 Gram 09/19/19 25 Active amLODIPine (NORVASC) 10 mg tabletIndications: HTN (hypertension), benign Take 1 Tablet (10 mg) by mouth daily. 90 Tablet 09/19/19 25 Active rosuvastatin (CRESTOR) 20 mg tabletIndications: Mixed hyperlipidemia Take 1 Tablet (20 mg) by mouth daily. 90 Tablet 11/02/19 25 Active sertraline (Zoloft) 100 mg tabletIndications: Anxiety and depression Take 1 Tablet (100 mg) by mouth daily. 90 Tablet 11/02/19 25 Active Active Problems Problem Noted Date Diagnosed Date Atherosclerosis of aorta 07/05/2024 Overview (07/05/2024): CT abdomen 06/2024 PVD (peripheral vascular disease) 11/08/2023 Overview (03/28/2024): New finding, Claudication of both lower extremities Overview (10/17/2023): Normal JUNITO but abnormal TBI 09/2023. Spinal stenosis 09/05/2023 Acute left-sided low back pain with left-sided s ciatica 09/01/2023 Type 2 diabetes mellitus wit hout complication, without long-term current use of insulin 08/23/2023 Vitamin D deficiency 08/22/2023 Anxiety and depression 06/07/2022 Mixed hyperlipidemia 06/07/2022 Coronary artery disease invo lving tangirnaq coronary artery of tangirnaq heart with unstable angina pectoris 09/14/2021 Essential hypertension 09/14/2021 Cigarette dependence 05/16/2018 Chronic obstructive pulmonary disease 01/03/2018 Primary osteoarthritis of both knees 01/03/2018 Resolved Problems Problem Noted Date Diagnosed Date Resolved Date Prediabetes 09/12/2018 08/23/2023 Elevated BP without diagnosis of hypertension 05/31/19 19 05/17/2022 Tobacco use 11/16/2017 05/16/2018 Encounters Date Type Department Care Team Description 11/06/2024 External Device Data STL ABSTRACTION Provider, Abstract 11/01/2024 8:30 AM CDT Office Visit [facility] [place] [address] [place] [address] Alanna Joseph, ANP Rectocele (Primary Dx); Coronary artery disease involving tangirnaq coronary artery of tangirnaq heart with unstable angina pectoris (CMS/HCC); Mixed hyperlipidemia; Anxiety and depression; Essential hypertension; Situational stress 10/09/2024 External Device Data STL ABSTRACTION Provider, Abstract 09/25/2024 External Device Data STL ABSTRACTION Provider, Abstract from Last 3 Months Immunizations Immunization Administration Dates Next Due (ADACEL/BOOSTRIX)(10 YR UP) TDAP VACCINE, 0.5ML, IM 05/30/2018 (PNEUMOVAX 23)(50 YRS UP) PN EUMOCOCCAL POLYSACCHARIDE (PPV23) 0.5 ML, IM 02/28/2018 (PREVNAR 20)(6 WKS UP) PNEUM OCOCCAL CONJUGATE VACCINE 20-VALENT (PCV20), POLYSACCHARIDE [id number] CONJUGATE, ADJUVANT 0.5 ML (PF) IM 12/27/2022 (SHINGRIX)(50 YRS UP) ZOSTER VACCINE RECOMBINANT, 0.5 ML, IM 12/27/2022,05/30/2018 INFLUENZA VACCINE QUADRIVALE NT 6 MOS UP IM 11/30/2018,11/16/2017 INFLUENZA VACCINE QUADRIVALE NT 6 MOS UP PF IM 11/18/2022,12/21/2021,11/13/2020,11/18 Influenza Seasonal Unspecifi ed Formulation IM 12/12/2007 Influenza Vaccine 18+ C.derived Pf Im 01/15/2013 Pneumococcal Polysaccharide Vacc 23-aliya IM SCHIP 12/12/2007 Family History Medical History Relation Name Comments Diabetes Brother 1 Heart Attack Brother 2 Seizures Brother 3 No Known Problems Brother 4 No Known Problems Brother 5 Sudden Brother 6 No Known Problems Brother 7 No Known Problems Brother 8 Brain Cancer Father Heart Attack Father Cancer Maternal Grandfather Cancer Maternal Grandmother COPD Mother Heart Disease Mother Unknown Paternal Grandfather Cancer Paternal Grandmother Arthritis-rheumatoid Sister 1 Ovarian Cancer Sister 2 No Known Problems Sister 3 Other Son schizophria Relation Name Status Comments Brother 1 Alive Brother 2 Brother 3 Alive Brother 4 Alive Brother 5 Alive Brother 6 Brother 7 Alive Brother 8 Alive Daughter 1 Alive Daughter 2 Alive Father Maternal Grandfather Maternal Grandmother Mother Alive Paternal Grandfather Paternal Grandmother Sister 1 Alive Sister 2 Sister 3 Alive Son Alive Social History Tobacco Use Types Packs/Day Years Used Date Smoking Tobacco: Every Day Cigarettes 0.5 51.7 Started: 1975 Smokeless Tobacco: Never Tobacco Cessation:Ready to Q uit: Not Asked; Counseling Given: Not Answered Alcohol Use Standard Drinks/Week Comments No 0 (1 standard drink = 0.6 oz pur e alcohol) Comments No Sex and Gender Information Value Date Recorded Sex Assigned at Not on file Legal Sex Female 8:46 AM CDT Gender Identity Not on file Sexual Orientation Not on file Last Filed Vital Signs Vital Sign Reading Time Taken Comments Blood Pressure 120/68 11/01/2024 8:18 AM CDT Pulse 68 11/01/2024 8:18 AM CDT Temperature 36.4 C (97.5 F) 11/01/2024 8:18 AM CDT Respiratory Rate 18 11/01/2024 8:18 AM CDT Oxygen Saturation 97% 11/01/2024 8:18 AM CDT Inhaled Oxygen Concentration - - Weight 68.9 kg (152 lb) 11/01/2024 8:18 AM CDT Height 162.6 cm (5' 4) 11/01/2024 8:18 AM CDT Body Mass Index 26.09 11/01/2024 8:18 AM CDT Plan of Treatment Health Maintenance Due Date Last Done Comments DIABETES ANNUAL FOOT EXAM 1976 DIABETES ANNUAL RETINAL EXAM 1976 DIABETES MICROALBUMIN ANNUAL SCREEN 1976 FIT-DNA Q 3 years 2003 FIT/FOBT Q 1 year 2003 Flex Sig/CT Colonography Q 5 years 2003 Lung Cancer Screening 2008 RSV VACCINE (60+ or ) (1 - Risk 50-74 years 1-dose series) 2008 BREAST CANCER SCREENING 09/18/2023 09/18/19 23, 09/06/2022, 09/06/2022, Additional history exists INFLUENZA VACCINE (#1) 2024 4, 11/18/2022, 12/21/2021, Additional history exists DIABETES HBA1C Q 6 MONTHS 03/22/20252024, 06/29/2024, 04/02/2024, Additional history exists LDL CHOLESTEROL ANNUAL 04/02/2025 5, 05/09/2023, 07/05/2022, Additional history exists COLORECTAL SCREENING 06/15/2027 06/14/2022, 02/21/19 20 Colorectal Cancer Screening 06/15/2027 OSTEOPOROSIS SCREENING 09/07/2027 3, 09/06/2022, 09/06/2022 DTAP/TDAP/TD VACCINES (2 - T d or Tdap) 05/30/2028 05/30/2018 PNEUMOCOCCAL VACCINE 50+ YEARS Completed 1 02/26/2022, 02/28/2018, 12/12/2007 ZOSTER VACCINE Completed 12/27/2022, 05/30/2018 Procedures Procedure Name Priority Date/Time Associated Diagnosis Comments LIPID PANEL Routine 04/02/2024 12:49 PM ADOLESCENT SPECIALIST Screening for condition HEMOGLOBIN A1C Routine 04/02/2024 12:49 PM ADOLESCENT SPECIALIST XR DEXA BONE DENSITY AXIAL 1 OR MORE SITES Routine 09/06/2022 Chronic obstructive pulmonary disease, unspecified COPD type (CMS/HCC) Osteoporosis screening MAMMO 3D MAFNRED SCREEN BILAT W OR WO CAD Routine 09/06/2022 Encounter for other screening for malignant neoplasm of breast from Last 3 Months or Most Recently Relevant to Health Maintenance Results * (ABNORMAL) HEMOGLOBIN A1C (04/02/2024 12:49 PM ADOLESCENT SPECIALIST) HEMOGLOBIN A1C 7.2(H) <5.7 % of total Hgb [facility] Comment: For someone without known diabetes, a hemoglobin A1c value of 6.5% or greater indicates that they may have diabetes and this should be confirmed with a follow-up test. For someone with known diabetes, a value <7% indicates that their diabetes is well controlled and a value greater than or equal to 7% indicates suboptimal control. A1c targets should be individualized based on duration of diabetes, age, comorbid conditions, and other considerations. Currently, no consensus exists regarding use of hemoglobin A1c for diagnosis of diabetes for children. ESTIMATED AVERAGE GLUCOSE (MG/DL) 160 mg/dL [facility] ESTIMATED AVERAGE GLUCOSE (MMOL/L) 8.9 mmol/L [facility] Comment: Test Performed at: [facility] [address] [place] [address] Gudelia Mcdonnell MD 04/02/2024 12:4 9 PM ADOLESCENT SPECIALIST 04/03/2024 4:24 AM ADOLESCENT SPECIALIST us Alanna Joseph [facility] CHEMISTRY ORDERABLES Final R esult [facility] [phone] [facility] [address] [place] [address] * LIPID PANEL (04/02/2024 12:49 PM ADOLESCENT SPECIALIST) CHOLESTEROL 176 <200 mg/dL [facility] HDL 55 > OR = 50 mg/dL [facility] TRIGLYCERIDE 120 <150 mg/dL [facility] LDL CALCULATED 99 mg/dL (calc) [facility] Comment: Reference range: <100 Desirable range <100 mg/dL for primary prevention; <70 mg/dL for patients with CHD or diabetic patients with > or = 2 CHD risk factors. LDL-C is now calculated using the Donta-Moore calculation, which is a validated novel method providing better accuracy than the Friedewald equation in the estimation of LDL-C. Donta SS et al. YANDEL. 2013;310(93): 9513-3611 (http://education.Instant AV/faq/ROL955) CHOL/HDL RATIO 3.2 <5.0 (calc) [facility] NON-HDL CHOLESTEROL 121 <130 mg/dL (calc) [facility] Comment: For patients with diabetes plus 1 major ASCVD risk factor, treating to a non-HDL-C goal of <100 mg/dL (LDL-C of <70 mg/dL) is considered a therapeutic option. Test Performed at: [facility] [id number] [place] [id number] Gudelia Mcdonnell MD Blood 04/02/2024 12:4 9 PM ADOLESCENT SPECIALIST 04/03/2024 4:24 AM ADOLESCENT SPECIALIST Alanna FONTANA CHEMISTRY ORDERABLES Final R esult [facility] [phone] [facility] [id number] [place] [phone] * MAMMO SCRN BILAT 3D MANFRED W OR WO CAD (09/06/2022) Anatomical Region Laterality Modality Breast Bilateral Mammography Bing Maher MD MAMMO ORDERABLES Final Result * XR DEXA BONE DENSITY AXIAL 1 OR MORE SITES (09/06/2022) Anatomical Region Laterality Modality Other Bing Maher MD DIAGNOSTIC IMAGING ORDERABLES Final Result from Last 3 Months or Most Recently Relevant to Health Maintenance Insurance [employer]ANCE * Guarantor: [employer]) Account Type Relation to Patient Date of Phone Billing Address Corporate Employer ATTN: NEDA [employer]RALES [address] [address] [employer] * Guarantor: [employer] Account Type Relation to Patient Date of Phone Billing Address Corporate Employer ATTN: NED[employer] [address] [address]
--- OUTSIDE RECORDS SUMMARY | 2024-12-25 10:15 | XMS_ITS | Encounter Summary ---
Author Organization [facility] Care Team Providers Care Scarfing Machine Operator Name Role Phone ROX Bridges Jr., Raffaele Booker Primary Care Provide r Gabby Lai MD Unavailable Vanessa Freeman MD Unavailable [phone] Encounter Details Date Type Department Care Team (Latest Contact Info) Description 11/14/2015 Orders Only [facility] CLINCONV Provider, MD Ver[place] [address] [place] [id number] Social History Tobacco Use Types Packs/Day Years Used Date Smoking Tobacco: Never Assessed Comments Unknown Sex and Gender Information Value Date Recorded Sex Assigned at Not on file Legal Sex Female 7:37 PM BUDGET CLERK Gender Identity Female 03/11/2021 1:36 PM BUDGET CLERK Sexual Orientation Straight 03/11/2021 1: 36 PM BUDGET CLERK documented as of this encounter Plan of Treatment Not on file documented as of this encounter Procedures Procedure Name Priority Date/Time Associated Diagnosis Comments SCAN - PATHOLOGY 11/14/2015 12:0 0 AM CDT documented in this encounter Results * SCAN - PATHOLOGY (11/14/2015 12:00 AM CDT) Narrative 11/14/2015 12:00 AM CDT Ordered by an unspecified provider. Historical Provider Final Res ult documented in this encounter Visit Diagnoses Not on filedocumented in this encounter Additional Health Concerns Infection Onset Date Last Indicated Resolved Time COVID: Suspected 10/30/2023 10/30/2023 10/30/2023 10:22 PM CDT documented as of this encounter Care Teams Scarfing Machine Operator Relationship Specialty Start Date [place] [address] [address] PCP - General 06/21/18 Gabby Lai MD [address] [facility] [address] Consulting Physician Pain Management 12/08/23 Vanessa Freeman MD [address] [place] [address] Referring Physician Family Medicine 12/16/23 documented as of this encounter
--- OUTSIDE RECORDS SUMMARY | 2024-12-25 10:15 | XMS_ITS | Encounter Summary ---
Author Organization [facility] Healthcare Address [address] [place] [address] Care Team Providers Care Gathering Machine Feeder Name Role Phone ROX Bridges Jr., Raffaele Booker Primary Care Provide r Gabby Lai MD Unavailable Vanessa Freeman MD Unavailable [phone] Reason for Visit * Reason Onset Date Comments Medical Question/Miscellaneous 12/19/2024 Encounter Details Date Type Department Care Team ([facility] Contact Info) Description 12/19/[address] [facility] Medical Group Primary Care [address] [place] [phone] Raffaele Bridges Jr., PA [address] [place] [id number] Medical Question/Miscellaneous Social History Tobacco Use Types Packs/Day Years Used Date Smoking Tobacco: Every Day Cigarettes Smokeless Tobacco: Never [facility] Utilities Answer Date Recorded In the past 12 months has [employer], gas, oil, or water company threatened to shut off services in your home? No 09/19/2024 Social Connection and Isolation Panel Answer Date Recorded In a typical week, how many times do you talk on the phone with family, friends, or neighbors? More than three times a week 09/19/2024 How often do you get togethe r with friends or relatives? More than three times a week 09/19/2024 How often do you attend chur ch or taoist services? Never 09/19/2024 Do you belong to any clubs o r organizations such as mandaen groups, unions, fraternal or athletic groups, or school groups? No 09/19/2024 How often do you attend meet ings of the clubs or organizations you belong to? Never 09/19/2024 Are you , , di vorced, , never , or living with a partner? 09/19/2024 AUDIT-C Answer Date Recorded Q1: How often do you have a drink containing alcohol? Never 09/18/2024 Q2: How many drinks containi ng alcohol do you have on a typical day when you are drinking? Patient does not drink Q3: How often do you have si x or more drinks on one occasion? Never 09/18/2024 Overall Financial Resource Strain (CARDIA) Answe r Date Recorded How hard is it for you to pa y for the very basics like food, housing, medical care, and heating? Not very hard 09/19/2024 PHQ-2 Answer Date Recorded PHQ-2 Total Score (If total score is 3 or more points, staff should administer the PHQ-9) 0 07/03/2024 Hunger Vital Sign Answer Date Recorded Within the past 12 months, y ou worried that your food would run out before you got the money to buy more. Never true 09/20/19 25 Within the past 12 months, t he food you bought just didn't last and you didn't have money to get more. Never true 09/19/2024 PRAPARE - Transportation Answer Date Re corded In the past 12 months, has l ack of transportation kept you from medical appointments or from getting medications? No 08/23 In the past 12 months, has l ack of transportation kept you from meetings, work, or from getting things needed for daily living? No 09/19/2024 Housing Stability Vital Sign Answer Dennis e Recorded In the last 12 months, was t here a time when you were not able to pay the mortgage or rent on time? No 09/19/2024 In the past 12 months, how m any times have you moved where you were living? 0 09/19/2024 At any time in the past 12 m [facility], were you homeless or living in a intermediate (including now)? No 09/19/2024 Personal Safety Answer Date Recorded Have you ever been in or are you currently in a harmful physical or emotional relationship or is someone making you feel afraid or unsafe? Denies 09/18/2024 Comments No Sex and Gender Information Value Date Recorded Sex Assigned at Not on file Legal Sex Female 7:37 PM BULB FILLER Gender Identity Female 03/11/2021 1:36 PM BULB FILLER Sexual Orientation Straight 03/11/2021 1: 36 PM BULB FILLER Occupation Industry Job Start Date Job End Date [employer] Not on file Not on file Not on file documented as of this encounter Miscellaneous Notes * Telephone Encounter - Lenka Barnett - 12/19/2024 8:39 AM CDT Medical Question/Miscellaneous Caller???s Concern: Patient called asking for dates of flu shot and mammogram. Gave her dates in chart. Does message need to be routed? No documented in this encounter Plan of Treatment Not on file documented as of this encounter Visit Diagnoses Not on filedocumented in this encounter Care Teams Gathering Machine Feeder Relationship Specialty Start Date End Date Raffaele Bridges Jr., PA [address] [place] [address] PCP - General 06/21/18 Gabby Lai MD [address] [facility], [address] [address] Consulting Physician Pain Management 12/08/23 Vanessa Freeman MD [address] [place] [address] Referring Physician Family Medicine 12/16/23 documented as of this encounter
--- OUTSIDE RECORDS SUMMARY | 2024-12-25 10:16 | XMS_ITS | Clinical Summary ---
Author Organization [address] Address [address] [place] [id number] Care Team Providers Care Talent Acquisition Consultant Name Role Phone ROX Bridges Jr., Robert James Primary Care Provide r Gabby Lai MD Unavailable Vanessa Freeman MD Unavailable [phone] Allergies Active Allergy Reactions Criticality Noted Date Comments Chlorpheniramine-Pseudoephed Unknown 020 Medications albuterol HFA (PROVENTIL HFA,VENTOLIN HFA,PROAIR HFA) 90 mcg/actuation inhalerIndications :Acute Asthma Attack Inhale 2 puffs every 4 (four) hours as needed for wheezing or shortness of breath 1 each 3 03/11/19 22 Active sertraline (ZOLOFT) 50 mg tablet Take 1 tablet (50 mg total) by mouth nightly Active rosuvastatin (CRESTOR) 20 mg tablet Take 1 tablet (20 mg total) by mouth nightly Active cetirizine (ZyrTEC) 10 mg tablet Take 1 tablet (10 mg total) by mouth nightly 07/06/19 23 Active nitroglycerin (NITROSTAT) 0.4 mg SL tabletIndications: Atheroscler of [place] artery of both legs with intermit claudication,Chest pain, unspecified type Place 1 tablet (0.4 mg total) under the tongue every 5 (five) minutes as needed for chest pain May repeat every 5 minutes for up to 3 doses. 100 tablet 10/19/19 24 Active naproxen (NAPROSYN) 500 mg tabletIndications: Anti-inflammatory, Pain Take 1 tablet (500 mg total) by mouth 2 (two) times a day as needed for pain (pain) 60 tablet 06/08/19 25 Active blood-glucose meter kitIndications:Maria L betes Mellitus Check home glucose daily 1 kit 07/04/19 25 Active blood glucose diagnostic (glucose blood) stripIndications:D iabetes Mellitus Check home glucose 1-2 times per day 100 each 07/04/19 25 026 Active lancets 31 gauge miscIndications:Di abetes Mellitus Check home glucose 1-2 times per day 100 each 07/04/19 25 Active aspirin 81 mg enteric coated tablet Take 1 tablet (81 mg total) by mouth nightly 01/06/20 24 Active isosorbide mononitrate ER (IMDUR) 30 mg 24 hr tablet Take 1 tablet (30 mg total) by mouth nightly 03/27/19 25 Active ondansetron ODT (ZOFRAN-ODT) 4 mg disintegrating tablet Take 1 tablet (4 mg total) by mouth every 8 (eight) hours as needed for nausea or vomiting 20 tablet 07/05/19 25 Active amLODIPine (NORVASC) 10 mg tablet Take 1 tablet (10 mg total) by mouth nightly Active metFORMIN XR (GLUCOPHAGE XR) 500 mg 24 hr tablet Take 1 tablet (500 mg total) by mouth daily with dinner Active nicotine (NICODERM CQ) [address] 1 patch on the skin daily as needed Active tiotropium (SPIRIVA) 18 mcg per inhalation capsule Place 1 puff (1 capsule total) into inhaler and inhale nightly Active pantoprazole DR (PROTONIX) 40 mg EC tablet Take 1 tablet (40 mg total) by mouth nightly Active polyethylene glycol (MIRALAX) 17 gram packetIndications: constipation Take 1 packet (17 g total) by mouth daily as needed for constipation 09/20/19 25 Active fluticasone propionate (FLONASE) 50 mcg/actuation nasal spray Administer 2 sprays into affected nostril(s) daily 09/19/19 25 Active guaiFENesin ER (MUCINEX) 600 mg 12 hr tabletIndications: Chronic cough Take 2 tablets (1,200 mg total) by mouth 2 (two) times a day 20 tablet 1 12/01/19 25 026 Active azithromycin (ZITHROMAX) 250 mg tabletIndications: Acute non-recurrent maxillary sinusitis Take 2 tabs (500 mg) by mouth today, than 1 tab (250 mg) daily for 4 days. 6 tablet 12/01/19 25 025 predniSONE (DELTASONE) 20 mg tabletIndications: Acute non-recurrent maxillary sinusitis,Chronic obstructive pulmonary disease with acute exacerbation (HCC) Take 2 tablets (40 mg) by mouth daily for 5 days 10 tablet 12/01/19 25 025 Active Problems Problem Noted Date Diagnosed Date Acute chest pain 09/18/2024 Dysphagia 07/23/2024 Abdominal pain 07/05/2024 PVD (peripheral vascular disease) 11/08/2023 Overview (11/08/2023): New finding, Assessment & Plan (11/08/2023 11:06 AM CDT): Impression: Patient denies any symptoms of claudication, ischemic rest pain or ulcerations to her lower extremity. Patient has palpable distal pulses to bilateral lower extremities on exam. Lower extremity ABIs performed at an outside facility on 10/13/2023 reveals normal ABIs. Bilateral great toe brachial index was slightly abnormal. Plan: No surgical interventions indicated at this time. -patient to follow up as an as-needed basis. Neurogenic claudication 11/08/2023 Assessment & Plan (11/08/2023 11:07 AM CDT): Impression: Patient complains of constant, radiating pain from her right hip to her right lower extremity as well as pain with prolonged standing and pain with positional changes. Patient previously had an MRI performed at an outside facility which showed some nerve compression. Patient has palpable distal pulses. Plan: Recommend patient to follow up with primary care provider for further evaluation of neurogenic claudication. Patient may require referral for neurology. Claudication of both lower extremities Overview (10/02/2024): Normal JUNITO but abnormal TBI 09/2023. Spinal stenosis 09/05/2023 Type 2 diabetes mellitus wit hout complication, without long-term current use of insulin 08/23/2023 Vitamin D deficiency 08/22/2023 Mixed hyperlipidemia 06/07/2022 Anxiety and depression 06/07/2022 Coronary artery disease invo lving [place] coronary artery of [place] heart with unstable angina pectoris 09/14/2021 Hx of Prinzmetal angina 09/14/2021 Essential hypertension 09/14/2021 Assessment & Plan (11/08/2023 11:08 AM CDT): Impression: Chronic and elevated this office visit. Patient remains asymptomatic. Plan: Recommend patient to monitor blood pressures at home and notify primary care provider for elevated blood pressures for further management. Situational depression 05/30/2018 Cigarette nicotine dependence, uncomplicated Simple chronic bronchitis 01/03/2018 Primary osteoarthritis of both knees 01/03/2018 Chronic obstructive pulmonary disease 01/03/2018 Tobacco abuse 12/01/2016 Assessment & Plan (11/08/2023 11:10 AM CDT): Impression: Patient is a current everyday smoker smoking half pack daily for the past 16 years. Plan: Discussed with the patient greater than 3 minutes about the importance of smoking cessation and its benefits to the cardiovascular health. Different treatment modalities discussed with the patient. Patient reports currently working on smoking cessation. Resolved Problems Problem Noted Date Diagnosed Date Resolved Date Acute left-sided low back pa in with left-sided sciatica 09/01/2023 04/30/2024 Chest pain 07/30/2021 09/14/2021 Prediabetes 09/12/2018 10/02/2024 Elevated BP without diagnosis of hypertension 05/31/19 19 09/14/2021 Encounters Date Type Department Care Team Description 12/19/2024 Telephone [facility] [address] [place] [address] [place] [phone] Donna Bridges Jr., ROX Medical Question/Miscellaneo us 11/30/2024 2:30 PM CDT Office Visit [facility] [address] [place] [address] [phone] Cirilo Schmidt MD Type 2 diabetes mellitus without complication, without long-term current use of insulin (HCC) (Primary Dx); Coronary artery disease involving [place] coronary artery of [place] heart with unstable angina pectoris (HCC); Acute non-recurrent maxillary sinusitis; Chronic obstructive pulmonary disease with acute exacerbation (HCC); Chronic cough; Essential hypertension 11/30/2024 Nurse Triage [facility] Primary [address] [phone] Donna Bridges Jr., PA 11/29/[address] [phone] Donna Bridges Jr. PA FMLA paperwork 11/28/2024 Nurse Triage [address] [phone] Monica Finch RN 11/07/2024 Results Follow-Up [address] [phone] Cirilo Schmidt MD XR Chest Pa Lateral 2 Views, CRP (acute phase), CBC with auto differential, Differential, auto 11/06/2024 2:20 PM CDT Lab [facility] Office Building [address] [place] [phone] Coughing up blood 11/06/2024 1:30 PM CDT - 11/06/2024 11:59 PM CDT Hospital Encounter [facility] MOB 1 DIAG IMG [address] [place] [phone] Coughing up blood Discharge Disposition: Discharge to home or self care 11/06/2024 1:30 PM CDT Office Visit [address] [phone] Cirilo Schmidt MD Coughing up blood (Primary Dx) 11/06/2024 Nurse Triage [facility] [address] [place] [phone] Donna Bridges Jr., PA 10/03/2024 Results Follow-Up [facility] at [address] [phone] Carlitos Pelaez, XENIA Urine culture Urine, clean voided 10/02/2024 5:47 PM CDT - 10/02/2024 11:59 PM CDT Hospital Encounter [address] [phone] Frequent urination Discharge Disposition: Discharge to home or self care 10/02/2024 9:15 AM CDT Office Visit [facility] Care at [address] [phone] Margaret Arias NP Frequent urination (Primary Dx) 10/02/2024 Nurse Triage [facility] Care [address] [place] [phone] Donna Bridges Jr., PA 09/26/[address] [phone] Donna Bridges Jr., PA Symptom Based Call from Last 3 Months Immunizations Immunization Administration Dates Next Due Flucelvax Influenza Quad MDI 01/15/2013 Influenza, Quadrivalent, Spl it, Intramuscular 11/30/2018,11/16/2017 Influenza, Quadrivalent, Spl it, Preservative Free, Intramuscular 11/18/2022,12/21/2021,11/13/2020,11/18 Influenza, Trivalent, Cell Culture-based MDCK, Preservative Free, Antibiotic Free, Intramuscular 01/15/2013 Influenza, Trivalent, High D ose, Split, Preservative Free, Intramuscular 11/07/2023 Influenza, Trivalent, IM (MDV) 12/12/2007 Influenza, Unspecified 11/07/2023,11/18/2022 Pneumococcal Conjugate Pcv20 12/27/2022 Pneumococcal Polysaccharide PPV23 02/28/2018, Tdap 05/30/2018 ZOSTER Recombinant 12/27/2022,05/30/2018 Surgical History Surgery Date Site/Laterality Comments KNEE SURGERY Right HYSTERECTOMY BREAST LUMPECTOMY Right BLADDER SURGERY x4 UPPER GASTROINTESTINAL ENDOSCOPY COLONOSCOPY Medical History Medical History Date Comments COPD (chronic obstructive pulmonary disease) Hiatal hernia GERD (gastroesophageal reflux disease) Hypertension Dysphagia Type 2 diabetes mellitus Family History Medical History Relation Name Comments Brain cancer Father Breast cancer Maternal Grandmother Hypertension Mother Colon cancer Paternal Grandmother Relation Name Status Comments Father Maternal Grandfather Maternal Grandmother Mother Paternal Grandfather Paternal Grandmother Social History Tobacco Use Types Packs/Day Years Used Date Smoking Tobacco: Every Day Cigarettes Smokeless Tobacco: Never Tobacco Cessation:Ready to Q uit: No; Counseling Given: Yes [facility] Utilities Answer Date Recorded In the past 12 months has e electric, gas, oil, or water company threatened to [...] week 09/19/2024 How often do you attend [facility] or moravian services? Never 09/19/2024 Do you belong to any clubs o r organizations such as advent groups, unions, fraternal or athletic groups, or [...] any time in the past 12 m [facility], were you homeless or living in a detention (including now)? No 09/19/2024 Personal Safety Answer Date Recorded Have you ever been in or are you currently in a harmful physical or emotional relationship or is someone making you feel afraid or unsafe? 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 Not on file Not on file Not on file Obstetrics History Para Term AB IAB SAB Ectopic Multiple Livin g Live Births 3 3 3 Date Outcome GA Total Labor Labor/2nd/3rd Weight Sex Type Anes PTL Leeanne A1 A5 Name Clin Term Term Term Last Filed Vital Signs Vital Sign Reading Time Taken Comments Blood Pressure 132/86 11/30/2024 2:21 PM CDT Pulse 61 11/30/2024 2:05 PM CDT Temperature 36.4 C (97.6 F) 11/30/2024 2:05 PM CDT Respiratory Rate 22 11/30/2024 2:05 PM CDT Oxygen Saturation 98% 11/30/2024 2:05 PM CDT Inhaled Oxygen Concentration - - Weight 66.7 kg (147 lb) 11/30/2024 2:05 PM CDT Height 162.6 cm (5' 4) 11/30/2024 2:05 PM CDT Body Mass Index 25.23 11/30/2024 2:05 PM CDT Plan of Treatment Health Maintenance Due Date Last Done Comments Dilated Eye Exam 1958 Foot Exam 1958 Hepatitis B Screening 1976 Well Visit 65+ 2023 Breast Cancer Screening-Mammogram 09/07/2023 09/06/2022, 09/06/2022, 09/06/2022 Osteoporosis Screening-Bone Density Scan 09/06/2024 09/06/2022, 09/06/2022, 09/06/2022 Albumin Creatinine Ratio, Urine 10/18/2024 Covid-19 Vaccine (2024-2 6 season) 2024 02/22/2021, 07/01/2020, 06/08/2020 Influenza Vaccine (#1) 2024 , 11/07/2023, 11/18/2022, Additional history exists Hemoglobin A1C 03/22/2025 09/19/2024, 05/0 10/2024, 04/02/2024, Additional history exists Depression Screening 07/03/2025 07/03/2024, 06/07/2024, 09/12/2023, Additional history exists eGFR 09/18/2025 09/18/2024, 08/22, 07/04/2024, Additional history exists Fall Risk Assessment 09/19/2025 09/19/2024, 09/12/19 24 Lipid Panel 09/19/2025 09/19/2024, 0408/2024, 10/19/2023, Additional history exists Colon Cancer Screening-Colonoscopy 06/15/2027 06/14/2022 DTaP/Tdap/Td Vaccine (2 - Td or Tdap) 05/30/2028 05/30/2018 Colon Cancer Screening-CT Colonography Discontinued 06/14/2022 Colon Cancer Screening-DNA Stool Discontinued 06/15/19 Colon Cancer Screening-FIT Discontinued 06/14/2022 Colon Cancer Screening-Sigmoidoscopy Discontinued 06/14/2022 Pneumococcal vaccine 65+ Completed 023, 02/28/2018, 12/12/2007 Zoster Vaccine Completed 12/27/2022, 05/30/2018 Hepatitis C Screening Completed 10/19/2023 Medical Devices Implanted Type Area Circular Stuffer Device Identifier Shelf Expiration Date Model / Serial / Lot Angio-Seal Vip 6fr Closere Device [id number] - [id number] Implanted:Qty: 1 on 07/31/2021 by Natasha Howard MD at [facility] 05/21/2022 [id number] / / [id number] Procedures Procedure Name Priority Date/Time Associated Diagnosis Comments DIFFERENTIAL AUTO Routine 11/06/2024 2:2 7 PM CDT Coughing up blood CBC WITH AUTO DIFFERENTIAL Routine 11/06/2024 2:27 PM CDT Coughing up blood CRP (ACUTE PHASE) Routine 11/06/2024 2:2 7 PM CDT Coughing up blood XR CHEST PA LATERAL 2 VIEWS Schedule HETAL, Read HETAL (Appt Today, Awaiting Results) 11/06/2024 2:06 PM CDT Coughing up blood URINE CULTURE Routine 10/02/2024 6:28 PM CDT Frequent urination POCT URINALYSIS DIPSTICK Routine 10/02/2024 9:15 AM CDT Frequent urination HEMOGLOBIN A1C Routine 09/19/2024 4:35 AM CDT LIPID PANEL Routine 09/19/2024 4:35 AM CDT EGFR STAT 09/18/2024 1:12 PM CDT HEPATITIS C ANTIBODY Routine 10/19/2023 2:34 PM CDT Need for hepatitis C screening test ALBUMIN CREATININE RATIO, URINE Routine 10/19/2023 2:34 PM CDT Type 2 diabetes mellitus without complication, without long-term current use of insulin (HCC) SCREENING MAMMOGRAM BILATERAL W TANNER Schedule Routine, Read Routine (OP Routine) 09/06/2022 7:52 AM CDT Encounter for other screening for malignant neoplasm of breast DEXA AXIAL SKELETON BONE DENSITY 1 OR MORE SITES Schedule Routine, Read Routine (OP Routine) 09/06/2022 7:41 AM CDT Encounter for screening for osteoporosis COLONOSCOPY Routine 06/14/2022 from Last 3 Months or Most Recently Relevant to Health Maintenance Results * (ABNORMAL) Differential, auto (11/06/2024 2:27 PM CDT) Neutrophil abs 7.11(H) 1.50 - 6.50 K/cumm Comment:Testing performed by : [address] [address] Imm gran abs 0.06 0.00 - 0.10 K/cumm ALYX Comment:Testing performed by : [address] [address] Lymphocyte abs 3.89(H) 0.80 - 3.30 K/cumm ALYX Comment:Testing performed by : [address] [address] Monocyte abs 1.06(H) 0.20 - 0.80 K/cumm ALYX Comment:Testing performed by : [address] [address] Eosinophil abs 0.28 0.00 - 0.50 K/cumm ALYX Comment:Testing performed by : [address] [address] Basophil abs 0.05 0.00 - 0.10 K/cumm ALYX Comment:Testing performed by : [address] [address] Neutrophil pct 57.2 % ALYX Comment: Interpretive Data Percent cell count reference ranges are not reported, since discordance with absolute values may lead to misinterpretation of CBC data. Current Interpretive Data was last revised on 2017. Testing performed by: [address] [address] Imm gran pct 0.5 % ALYX Comment: Interpretive Data Percent cell count reference ranges are not reported, since discordance with absolute values may lead to misinterpretation of CBC data. Current Interpretive Data was last revised on 2017. Testing performed by: [address] [address] Lymphocyte pct 31.2 % ALYX Comment: Interpretive Data Percent cell count reference ranges are not reported, since discordance with absolute values may lead to misinterpretation of CBC data. Current Interpretive Data was last revised on 2017. Testing performed by: [address] [address] Monocyte pct 8.5 % ALYX Comment: Interpretive Data Percent cell count reference ranges are not reported, since discordance with absolute values may lead to misinterpretation of CBC data. Current Interpretive Data was last revised on 2017. Testing performed by: [address] [address] Eosinophil pct 2.2 % ALYX Comment: Interpretive Data Percent cell count reference ranges are not reported, since discordance with absolute values may lead to misinterpretation of CBC data. Current Interpretive Data was last revised on 2017. Testing performed by: [address] [address] Basophil pct 0.4 % [facility] Comment: Interpretive Data Percent cell count reference ranges are not reported, since discordance with absolute values may lead to misinterpretation of CBC data. Current Interpretive Data was last revised on 2017. Testing performed by: [address] [address] Blood 11/06/2024 2:27 PM CDT 11/06/2024 3:48 PM CDT us Cirilo Schmidt MD LAB BLOOD ORDERABLES Fin al Result ALYX [address] [facility] Department [place] [address] * (ABNORMAL) CBC with auto differential (11/06/2024 2:27 PM CDT) WBC 12.45(H) 3.80 - 9.90 K/cumm Comment:Testing performed by : [address] [address] Hgb 13.8 11.9 - 15.5 g/dL ALYX Comment:Testing performed by : [address] [address] Hct 40.2 35.6 - 45.5 % ALYX Comment:Testing performed by : [address] [address] Plt 260 150 - 400 K/cumm ALYX Comment:Testing performed by : [address] [address] MPV 11.0 9.1 - 12.3 fL ALYX Comment:Testing performed by : [address] [address] RBC 4.52 3.90 - 5.20 M/cumm ALYX Comment:Testing performed by : [address] [address] MCV 88.9 81.3 - 96.4 fL ALYX Comment:Testing performed by : [address] [address] MCH 30.5 27.1 - 33.3 pg ALYX LYONS Comment:Testing performed by : [address] [address] MCHC 34.3 32.3 - 35.7 g/dL ALYX LYONS Comment:Testing performed by : [address] [address] RDW CV 12.4 11.1 - 14.9 % ALYX Comment:Testing performed by : [address] [address] RDW SD 40.3 35.7 - 48.1 fL ALYX Comment:Testing performed by : [address] [address] NRBC abs 0.00 0.00 - 0.01 K/cumm ALYX Comment:Testing performed by : [address] [address] Blood 11/06/2024 2:27 PM CDT 11/06/2024 3:48 PM CDT Cirilo Schmidt MD LAB BLOOD ORDERABLES Fin al Result Performing Organization Address [facility] Co de Phone Number ALYX [address] [place] [address] * CRP (acute phase) (11/06/2024 2:27 PM CDT) CRP 3.8 <=10.0 mg/L Comment:Testing performed by : [address] [address] Blood 11/06/2024 2:27 PM CDT 11/06/2024 3:52 PM CDT Cirilo Schmidt MD LAB BLOOD ORDERABLES Fin al Result Performing Organization Address [facility] Co de Phone Number RUDY[address] [place] [address] * XR Chest Pa Lateral 2 Views (11/06/2024 2:06 PM CDT) Anatomical Region Laterality Modality Body, Chest N/A Computed Radiogr aphy 11/07/2024 7:42 AM CDT Narrative 11/07/2024 7:42 AM CDT EXAM DESCRIPTION: XR CHEST PA LATERAL 2 VIEWS REASON FOR STUDY: coughing up blood, 64 yo F with 1 wk of cough and some bloody sputum. please evaluate Patient reports SOB and coughing x 2 weeks with production of bloody sputum x yesterday. Patient denies any chest pain. TECHNIQUE: Frontal and lateral radiographic view(s) of the chest. COMPARISON: 09/18/2024. FINDINGS: LUNGS: No focal opacity, pleural effusion, or pneumothorax. Minimal left basilar linear scarring or atelectasis. HEART/MEDIASTINUM: Cardiac silhouette normal in size. Mediastinal and hilar contours appear normal. LINES/TUBES: None. BONES: No acute osseous abnormality. IMPRESSION: No acute cardiopulmonary abnormality. THIS IS AN ELECTRONICALLY VERIFIED FINAL REPORT 11/07/2024 7:42 AM - Electronically signed by Josef Carrillo M.D. CH: JACEY Report ID: [id number] Reading Location: [id number] Procedure Note Josef Carrillo MD - 11/07/2024 EXAM DESCRIPTION: XR CHEST PA LATERAL 2 VIEWS REASON FOR STUDY: coughing up blood, 64 yo F with 1 wk of cough and some bloody sputum. please evaluate Patient reports SOB and coughing x 2 weeks with production of bloodysputum x yesterday. Patient denies any chest pain. TECHNIQUE: Frontal and lateral radiographic view(s) of the chest. COMPARISON: 09/18/2024. FINDINGS: LUNGS: No focal opacity, pleural effusion, or pneumothorax. Minimal left basilar linear scarring or atelectasis. HEART/MEDIASTINUM: Cardiac silhouette normal in size. Mediastinal andhilar contours appear normal. LINES/TUBES: None. BONES: No acute osseous abnormality. IMPRESSION: No acute cardiopulmonary abnormality. THIS IS AN ELECTRONICALLY VERIFIED FINAL REPORT 11/07/2024 7:42 AM - Electronically signed by Josef Carrillo M.D. CH: JACEY Report ID: [id number] Reading Location: [id number] Cirilo Schmidt MD IMG XR PROCEDURES Final Result * Urine culture Urine, clean voided (10/02/2024 6:28 PM CDT) Pathologist [facility] Report Final Report: Less than 100,000 colonies/mL (clinically insignificant growth based on current clinical standards) Organism (CLINICALLY INSIGNIFICANT GROWTH ALYX MITCHELL Urine, clean voided 10/02/2024 6:28 PM CDT 10/02/2024 6:54 PM CDT Narrative ALYX DEGROOT - 10/03/2024 8:52 PM CDT Testing performed by [facility] ([phone]) Margaret Arias NP LAB MICROBIOLOGY - [facility] Final Result ALYX DEGROOT [facility] Department [place] [address] * (ABNORMAL) POCT urinalysis dipstick (10/02/2024 9:15 AM CDT) [facility] Color, Urine, POC Yellow Clarity, ur, POC Clear Clear Glucose, ur, POC Negative Negative Bilirubin, ur, POC Negative Negative Ketones, ur, POC Negative Negative Specific Manson, POC 1.005 1.003 - 1.030 Blood, ur, POC Moderate(A) Negative pH, ur, POC 5.5 5.0 - 8.0 Protein, ur, POC Negative Negative Urobilinogen, urine, POC 0.2 0.2 - 1.0 mg/dL Nitrite, ur, POC Negative Negative Leukocytes, ur, POC Moderate(A) Negative Lot Number [id number] Urine 10/02/2024 9:15 AM CDT Margaret Arias NP POINT OF CARE TEST ORDERABLES F inal Result * (ABNORMAL) Hemoglobin A1c (09/19/2024 4:35 AM CDT) [facility] Hgb A1C 6.9(H) 4.0 - 5.6 % Comment:Testing performed by : [facility], [address] [place] [address], [place]., [address] Estimated Average Glucose 151 mg/dL ALYX Comment: The ADA recommends reporting an estimated Average Glucose (eAG) with all Hemoglobin A1c results using the equation derived from a study of 507 normal and diabetic adults. Minority populations were underrepresented and children were not included. (Diabetes Care 31:5238-9817, 2008). The eAG is not equivalent to a fasting glucose. Testing performed by: [facility], [address] [place] [address]., [address] Blood 09/19/2024 4:35 AM CDT 09/19/2024 5:24 AM CDT us Elham Yen NP LAB BLOOD ORDERABLES Final Result ALYX [address] [facility] Department [place] [address] * (ABNORMAL) Lipid panel (09/19/2024 4:35 AM CDT) Cholesterol 146 30 - 199 mg/dL Comment: Interpretive Data Ages < or = 19 years Acceptable: <170 mg/dL Borderline high: 170-199 mg/dL High: >or= 200 mg/dL Ages > or = 20 years Desirable: <200 mg/dL Borderline high: 200-239 mg/dL High: >or= 240 mg/dL Literature References: 1. Expert Panel on Integrated Guidelines for Cardiovascular Health and Risk Reduction in Children and Adolescents. Pediatrics 2011;128:S213 2. NCEP Expert Panel. Circulation 2004;110:227 Current Interpretive Data was last revised on 2017. Testing performed by: [address] [address] Triglycerides 170(H) <=149 mg/dL ALYX LYONS Comment: Interpretive Data Ages < or = 9 years Acceptable: <75 mg/dL Borderline high: 75-99 mg/dL High: >or= 100 mg/dL Ages 10 to 20 years Acceptable: <90 mg/dL Borderline high: 90-129 mg/dL High: >or= 130 mg/dL Ages > or = 20 years Desirable: <150 mg/dL Borderline high: 150-199 mg/dL High: 200-499 mg/dL Very high: >or= 499 mg/dL Literature References: 1. Expert Panel on Integrated Guidelines for Cardiovascular Health and Risk Reduction in Children and Adolescents. Pediatrics 2011;128:S213 2. NCEP Expert Panel. Circulation 2004;110:227 Current Interpretive Data was last revised on 2017. Testing performed by: [address] [address] HDL 44 >=40 mg/dL ALYX Comment: Interpretive Data Ages < or = 19 years Acceptable: >45 mg/dL Borderline low: 40-45 mg/dL Low: <40 mg/dL Ages > or = 20 years Desirable: >or= 60 mg/dL Low: <40 mg/dL Literature References: 1. Expert Panel on Integrated Guidelines for Cardiovascular Health and Risk Reduction in Children and Adolescents. Pediatrics 2011;128:S213 2. NCEP Expert Panel. Circulation 2004;110:227 Current Interpretive Data was last revised on 2017. Testing performed by: [address] [address] LDL, calculated 73 <=129 mg/dL ALYX Comment: Interpretive Data Ages < or = 19 years Acceptable: <110 mg/dL Borderline high: 110-129 mg/dL High: >or= 130 mg/dL Ages > or = 20 years Optimal: <100 mg/dL Near optimal: 100-129 mg/dL Borderline high: 130-159 mg/dL High: >160 mg/dL Calculated using the Madi LDL-C estimating equation. This equation was implemented on 2023. Prior to this date LDL-C was estimated using the Friedewald equation. Literature References: 1. Expert Panel on Integrated Guidelines for Cardiovascular Health and Risk Reduction in Children and Adolescents. Pediatrics 2011;128:S213 2. NCEP Expert Panel. Circulation 2004;110:227 3. Madi Burns et al. YANDEL Cardiol. 2020 June 21;5(5):540-548. doi: 10.1001/jamacardio.2020.0013 Current Interpretive Data was last revised on 2023. Testing performed by: [address] [address] Non-HDL Cholesterol 102 mg/dL ALYX Comment: Interpretive Data Ages < or = 19 years Acceptable: <120 mg/dL Borderline high: 120-144 mg/dL High: >145 mg/dL Ages > or = 20 years When triglycerides are >200 mg/dL, Non-HDL cholesterol is a secondary target of therapy with treatment goals that are 30 mg/dL greater than the LDL cholesterol target. Literature References: 1. Expert Panel on Integrated Guidelines for Cardiovascular Health and Risk Reduction in Children and Adolescents. Pediatrics 2011;128:S213 2. NCEP Expert Panel. Circulation 2004;110:227 Current Interpretive Data was last revised on 2017. Testing performed by: [address] [address] Chol/HDL ratio 3 ALYX Comment:Testing performed by : [address] [address] Blood 09/19/2024 4:35 AM CDT 09/19/2024 5:14 AM CDT us Jose David Acevedo MD LAB BLOOD ORDERABLES Sarah l Result ALYX [address] [facility] Department [place] [address] * eGFR (09/18/2024 1:12 PM CDT) eGFR >90 >=60 mL/min/1. 73 m2 Comment: Interpretive Data Reference Interval Normal >/= 90 mL/min/1.73m2 Mildly decreased* 60 - 89 mL/min/1.73m2 Mildly to moderately decreased 45 - 59 mL/min/1.73m2 Moderately to severely decreased 30 - 44 mL/min/1.73m2 Severely decreased 15 - 29 mL/min/1.73m2 Kidney Failure < 15 mL/min/1.73m2 *Relative to young adult level Estimated glomerular filtration rate is determined by the 2020 CKD-EPI equation recommended by the National Kidney Foundation (A Unifying Approach to GFR Estimation: Recommendations of the NKF-ASK Task Force on Reassessing the Inclusion of Race in Diagnosing Kidney Disease, JASN 2020). The CKD-EPI equation should not be used for patients with unstable renal function and has not been validated in children and those over 70. Current interpretive data was last reviewed 2020. Testing performed by: [address] [address] Blood 09/18/2024 1:12 PM CDT 09/18/2024 1:21 PM CDT Cindy Bustos MD LAB BLOOD ORDERABLES Sarah l Result Performing Organization Address [facility] Co de Phone Number [place] [phone] [place] [address] * Hepatitis C antibody Blood (10/19/2023 2:34 PM CDT) Pathologist [facility] [place] Hep C Ab Nonreactive Nonreactive Comment: Antibodies to HCV not detected. Does NOT exclude the possibility of recent exposure to HCV. Current interpretive data was last revised on 21 Interpretive Data Nonreactive: Antibodies to HCV not detected. Does NOT exclude the possibility of recent exposure to HCV. Equivocal: Equivocal for HCV antibodies. Supplemental molecular testing will be automatically performed to determine infection status in accordance with current CDC screening recommendations. Reactive: Positive for HCV antibodies. This may represent current or past HCV infection. Supplemental molecular testing will be automatically performed to determine current infection status in accordance with current CDC screening recommendations. Interpretive data was last revised on 2019. Blood 10/19/2023 2:34 PM CDT 10/19/2023 7:07 PM CDT ROX Stockton Jr. LAB MICROBIOL OGY - GENERAL ORDERABLES Edited Result - Final Performing Organization Address [facility] Co de Phone Number [place] [address] [facility] [place] [address] * (ABNORMAL) Albumin Creatinine Ratio, Urine (10/19/2023 2:34 PM CDT) [facility] Albumin Ur <12.0 mg/L Comment: Interpretive Data No reference range established. Current interpretive data was last revised 2018. Testing performed by: [facility], [address] [place] [address]., [address] Creatinine Ur 30.2 mg/dL ALYX Comment: Interpretive Data No reference range established. Current interpretive data was last revised 2018. Testing performed by: [facility], [address] [place] [address]., [address] Albumin Creatinine Ratio, Ur <40(H) 1 - 29 mg/g ALYX LYONS Comment:Testing performed by : [facility], [address] [place] [address]., [address] Urine 10/19/2023 2:34 PM CDT 10/19/2023 4:23 PM CDT us ROX Stockton Jr. LAB URINE ORDERABLES Final Result ALYX ELOY [address] [facility] Department [place] [address] * (ABNORMAL) Screening Mammogram Bilateral W Tanner (09/06/2022 7:52 AM CDT) Anatomical Region Laterality Modality Breast Bilateral Mammography Impressions 09/06/2022 9:11 AM CDT BI-RADS ATLAS category (overall): 0 - Incomplete: Needs Additional Imaging Evaluation 1. Indeterminate left breast focal asymmetry. Further evaluation with diagnostic left mammography and possible diagnostic left breast ultrasound is recommended. 2. No mammographic evidence of malignancy in the right breast. Routine screening mammography of the right breast is recommended in 1 year. The patient has been or will be contacted. Narrative 09/06/2022 9:11 AM CDT Screening Mammogram Bilateral W Tanner: 09/06/22 The study was acquired using full field digital technology and interpreted from soft copy. 2D digital mammographic views, as well as 3D digital tomosynthesis were performed in the CC and MLO projections. CLINICAL: Encounter for other screening for malignant neoplasm of breast. No relevant medical history has been documented for this patient. History of breast cancer in Maternal Grandmother. COMPARISON: New Baseline Screening Mammography. No prior mammography is available for comparison. BREAST TISSUE: The breasts are heterogeneously dense, which may obscure small masses. FINDINGS: There is a focal asymmetry in the central upper left breast, posterior depth. No other suspicious findings are seen within either breast. us Bing Maher MD IMG MAMMO PROCEDURES F inal Result * Dexa Axial Skeleton Bone Density 1 or 2 Site (09/06/2022 7:41 AM CDT) Anatomical Region Laterality Modality Body N/A Mammography 09/06/2022 9:33 AM CDT Narrative 09/06/2022 9:38 AM CDT EXAM DESCRIPTION: DEXA AXIAL SKELETON BONE DENSITY 1 OR MORE SITES REASON FOR STUDY: 62 y/o year old F with given history of: z13.820 Circular Stuffer/Model: Work4 A (S/N [id number]) CLINICAL INFORMATION: Current height: 64 inches Maximum height: 64 inches Weight: 154 pounds Risk factors: Postmenopausal, smoking history, cancer COMPARISON: None available FINDINGS: AP LUMBAR SPINE L1-L4: Total BMD is 1.303 g/cm2 T-score is 2.3 LEFT HIP: Total BMD is 0.903 g/cm2 T-score is -0.3 Femoral neck BMD is 0.705 g/cm2 T-score is -1.3 FRAX: 10 year risk for a major osteoporotic fracture is 8.4 %, 10 year risk for a hip fracture is 1.3 % IMPRESSION: Low Bone Mass. REFERENCE: Bone mineral density: Normal (T-score above or = -1.0) Low bone mass (T-score between -1.0 and -2.5) replaces the previously used term osteopenia Osteoporosis (T-score = or below -2.5) Medical evaluation for secondary causes of low bone mineral density may be appropriate. FRAX is a World Health Organization validated fracture risk assessment tool that calculates a person's 10 year probability of a major osteoporosis related fracture and hip fracture. According to the National Osteoporosis Foundation guidelines, postmenopausal women and men age 50 or older with low bone mass and a 10 year probability of a major osteoporosis related fracture = or greater than 20% or a 10 year probability of a hip fracture = or greater than 3% should be considered for treatment. For further information, including treatment recommendations, please refer to the 2019 ISCD Official Positions (http://www.iscd.org) and the NOF's Clinician's Guide to Prevention and Treatment of Osteoporosis (http://www.nof.org/professionals/clinical-guidelines) THIS IS AN ELECTRONICALLY VERIFIED FINAL REPORT 09/06/2022 9:38 AM - Electronically signed by Manuel Alcaraz M.D. MF: EMMA Report ID: [id number] Reading Location: [place] [address] Procedure Note Manuel Alcaraz MD - 09/06/2022 EXAM DESCRIPTION: DEXA AXIAL SKELETON BONE DENSITY 1 OR MORE SITES REASON FOR STUDY: 62 y/o year old F with given history of: z13.820 Circular Stuffer/Model: Work4 A (S/N [id number]) CLINICAL INFORMATION: Current height: 64 inches Maximum height: 64 inches Weight: 154 pounds Risk factors: Postmenopausal, smoking history, cancer COMPARISON: None available FINDINGS: AP LUMBAR SPINE L1-L4: Total BMD is 1.303 g/cm2 T-score is 2.3 LEFT HIP: Total BMD is 0.903 g/cm2 T-score is -0.3 Femoral neck BMD is 0.705 g/cm2 T-score is -1.3 FRAX: 10 year risk for a major osteoporotic fracture is 8.4 %, 10 year risk fora hip fracture is 1.3 % IMPRESSION: Low Bone Mass. REFERENCE: Bone mineral density: Normal (T-score above or = -1.0) Low bone mass (T-score between -1.0 and -2.5) replaces thepreviously used term osteopenia Osteoporosis (T-score = or below -2.5) Medical evaluation for secondary causes of low bone mineral density may be appropriate. FRAX is a World Health Organization validated fracture risk assessmenttool that calculates a person's 10 year probability of a major osteoporosisrelated fracture and hip fracture. According to the National OsteoporosisFoundation guidelines, postmenopausal women and men age 50 or older with low bonemass and a 10 year probability of a major osteoporosis related fracture = or greater than 20% or a 10 year probability of a hip fracture = or greaterthan 3% should be considered for treatment. For further information, including treatment recommendations, please referto the 2019 ISCD Official Positions (http://www.iscd.org) and the NOF's Clinician's Guide to Prevention and Treatment of Osteoporosis (http://www.nof.org/professionals/clinical-guidelines) THIS IS AN ELECTRONICALLY VERIFIED FINAL REPORT 09/06/2022 9:38 AM - Electronically signed by Manuel Alcaraz M.D. MF: EMMA Report ID: [id number] Reading Location: [place] [address] Bing Maher MD IMG DXA PROCEDURES Fin al Result * Colonoscopy (06/14/2022) Anatomical Region Laterality Modality Other 06/14/2022 Historical Provider ENDOSCOPY PROCEDURES Sarah l Result from Last 3 Months or Most Recently Relevant to Health Maintenance Insurance nCrypted Cloud [facility] MEDICARE [facility] CIGNA [facility] Advance Directives For more information, please contact: [phone] * Full Code (Latest Code Status on File) Date Activated Date Inactivated Comments 09/18/2024 5:20 PM 09/19/2024 7:09 PM * Full Code Date Activated Date Inactivated Comments 07/31/2021 12:32 PM 07/31/2021 8:17 PM * Full Code Date Activated Date Inactivated Comments 07/30/2021 6:45 PM 07/31/2021 12:32 PM Care Teams Talent Acquisition Consultant Relationship Specialty Start Date End Date Donna Bridges Jr., PA [facility] [address] PCP - General 06/21/18 Gabby Lai MD [address] [facility] [address] Consulting Physician Pain Management 12/08/23 Vanessa Freeman MD [address] [place] [address] Referring Physician Family Medicine 12/16/23
[2024-12-25 10:25] LABS: Add Urine Microscopic? NO; Appearance Urine Clear (Clear); Glucose Urine UA Negative (Negative); Leukocyte Esterase Ur Negative LEU/UL (Negative); Nitrate Urine Negative (Negative); Specific Grav Ur 1.005 (1.001-1.035)
[2024-12-25 10:26] LABS: INR 0.9; Prothrombin Time 12.7 Seconds (11.1-14.7)
[2024-12-25 10:27] LABS: Partial Thromboplastin Time 31.8 Seconds (22.3-36.8)
[2024-12-25] MEDS: CYCLOBENZAPRINE HCL 5 MG TABLET PO (10:32)
[2024-12-25 10:41] LABS: Anion Gap 8 mmol/L (4-12); Blood Urea Nitrogen 20 mg/dL (7-17); Calcium 9.4 mg/dL (8.4-10.2); Carbon Dioxide 26 mmol/L (22-30); Chloride 106 mmol/L (98-107); Estimated CRCL calculation 64 ml/min; Estimated Glomerular Filt Rate > 60; Glucose 101 mg/dL (65-110); Potassium 3.9 mmol/L (3.4-5.0); Sodium 140 mmol/L (137-145)
--- OUTSIDE RECORDS SUMMARY | 2024-12-25 11:04 | XMS_ITS | Clinical Summary ---
Author Organization [facility] Address Count includes the [facility] [place] [address] Care Team Providers Care Immigration Coordinator Name Role Phone Raffaele Bridges Primary Care Provider [phone] Allergies No known active allergies Medications esomeprazole [...] on file Legal Sex Female 2:47 PM SUSPECT ARTIST Gender Identity Not on file Sexual Orientation Not on file Last Filed Vital Signs Vital Sign Reading Time Taken Comments Blood Pressure 154/90 04/18/2022 3:09 PM SUSPECT ARTIST Pulse 74 04/18/2022 3:09 PM SUSPECT ARTIST Temperature 36.1 C (97 F) 04/18/2022 3:09 PM SUSPECT ARTIST Respiratory Rate 20 04/18/2022 3:09 PM SUSPECT ARTIST Oxygen Saturation 99% 04/18/2022 3:09 PM SUSPECT ARTIST Inhaled Oxygen Concentration - - Weight 4.536 kg (10 lb) 04/18/2022 3:09 PM SUSPECT ARTIST Height 162.6 cm (5' 4) 04/18/2022 3:09 PM SUSPECT ARTIST Body Mass Index 1.72 04/18/2022 3:09 PM SUSPECT ARTIST Plan of Treatment Health Maintenance Due Date [...] patient's age to complete this topic Insurance [facility] PER[facility] CATES Care Teams Immigration Coordinator Relationship Specialty Start Date End Date Raffaele Bridges PA [address] [place] [address] PCP - General PHYSICIAN INTRAVENOUS THERAPY NURSE 04/18/22
--- OUTSIDE RECORDS SUMMARY | 2024-12-25 11:04 | XMS_ITS | Clinical Summary ---
Author Organization [facility] [employer] [place] Address [address] [facility] [address] Care Team Providers Care Credit Card Specialist Name Role Phone Unavailable Primary Care Provider Unavailabl e Allergies Active Allergy Reactions Criticality Noted Date Comments Chlorpheniramine-Pseudoephed Unknown 020 Medications fluticasone propionate (FLONASE) 50 mcg/spray [place], Suspension nasal inhalerIndications :Upper respiratory tract infection, [...] 25 Active fluticasone propionate (FLONASE) 50 mcg/spray [place], Suspension nasal inhaler Administer 2 Sprays in [...] hyperlipidemia 06/07/2022 Coronary artery disease invo lving [place] ira coronary artery of [place] heart with unstable angina pectoris 09/14/2021 Essential [...] Abstract 11/01/2024 8:30 AM CDT Office Visit [facility] [employer] [place] [address] [address] Alanna Joseph, ANP Rectocele (Primary Dx); Coronary artery disease involving [place] ira coronary artery of [place] ira heart with unstable angina pectoris (CMS/HCC); Mixed [...] PNEUM OCOCCAL CONJUGATE VACCINE 20-VALENT (PCV20), POLYSACCHARIDE [id number] CONJUGATE, ADJUVANT 0.5 ML (PF) IM 12/27/2022 [...] Comments LIPID PANEL Routine 04/02/2024 12:49 PM [facility] [employer] [facility] Screening for condition HEMOGLOBIN A1C Routine 04/02/2024 12:49 PM [employer] [facility] XR DEXA BONE DENSITY AXIAL 1 OR MORE SITES Routine 09/06/2022 Chronic obstructive pulmonary disease, unspecified COPD type (CMS/HCC) Osteoporosis screening MAMMO 3D MANFRED SCREEN BILAT W OR WO CAD Routine 09/06/2022 Encounter for other screening for malignant neoplasm of breast from Last 3 Months or Most Recently Relevant to Health Maintenance Results * (ABNORMAL) HEMOGLOBIN A1C (04/02/2024 12:49 PM [employer] [facility]) HEMOGLOBIN A1C 7.2(H) <5.7 % of total [...] ESTIMATED AVERAGE GLUCOSE (MMOL/L) 8.9 mmol/L [facility] Comment: Test Performed at: [facility] [address] [place] [address] Gudelia Mcdonnell MD 04/02/2024 12:4 9 PM [employer] [facility] 04/03/2024 4:24 AM [employer] HEAD us Alanna Joseph [facility] CHEMISTRY ORDERABLES Final R esult [facility] [phone] [facility] [address] [place] [address] * LIPID PANEL (04/02/2024 12:49 PM [employer] HEAD) CHOLESTEROL 176 <200 mg/dL [facility] HDL 55 > OR = 50 mg/dL [facility] TRIGLYCERIDE 120 <150 mg/dL [facility] LDL CALCULATED 99 mg/dL (calc) [facility] Comment: Reference range: <100 Desirable range <100 mg/dL for primary prevention; <70 mg/dL for patients with CHD or diabetic patients with > or = 2 CHD risk factors. LDL-C is now calculated using the Donta-Moore calculation, which is a validated novel method providing better accuracy than the Friedewald equation in the estimation of LDL-C. Donta SS et al. YANDEL. 2013;310(77): 2927-3383 (http://education.iQuantifi.com/faq/FKF050) CHOL/HDL RATIO 3.2 <5.0 (calc) [facility] NON-HDL CHOLESTEROL 121 <130 mg/dL (calc) [facility] Comment: For patients with diabetes plus 1 major ASCVD risk factor, treating to a non-HDL-C goal of <100 mg/dL (LDL-C of <70 mg/dL) is considered a therapeutic option. Test Performed at: [facility] [id number] [place] [id number] Gudelia Mcdonnell MD Blood 04/02/2024 12:4 9 PM [facility] [facility] [facility] 04/03/2024 4:24 AM [facility] [facility] HEAD Alanna FONTANA CHEMISTRY ORDERABLES Final R esult [facility] [phone] [facility] [id number] [place] [phone] * MAMMO SCRN BILAT 3D MANFRED W [...] Address Corporate Employer ATTN: [employer] [address] [address] [place] * Guarantor: [employer] Account Type Relation to Patient Date of Phone Billing Address Corporate Employer ATTN: N[employer] [address] [address]
--- OUTSIDE RECORDS SUMMARY | 2024-12-25 11:04 | XMS_ITS | Clinical Summary ---
Author Organization [facility] Care Team Providers Care Is/It Project Manager Name Role Phone Unavailable Primary Care Provider Unavailabl e Social History Tobacco Use Types Packs/Day Years Used Date Smoking Tobacco: Never Assessed Comments Unknown Sex and Gender Information Value Date Recorded Sex Assigned at Not on file Legal Sex Female 8:59 AM EDGING SUPERVISOR Gender Identity Not on file Sexual Orientation [...]
--- OUTSIDE RECORDS SUMMARY | 2024-12-25 11:04 | XMS_ITS | Encounter Summary ---
Author Organization [facility] Healthcare Address [address] [place] [address] Care Team Providers Care Siding Installer Name Role Phone ROX Bridges Jr., Raffaele Booker Primary Care Provide r Gabby Lai MD Unavailable Vanessa Freeman MD Unavailable [phone] Reason for Visit * Reason Onset Date Comments Medical Question/Miscellaneous 12/19/2024 Encounter Details Date Type Department Care Team ([facility] Contact Info) Description 12/19/2024 Telephone [facility] Medical Group Primary Care [address] [place] [phone] Raffaele Bridges Jr., PA [address] [place] [address] Medical Question/Miscellaneous Social History Tobacco Use Types Packs/Day Years Used Date Smoking Tobacco: Every Day Cigarettes Smokeless Tobacco: Never [facility] Utilities Answer Date Recorded In the past 12 months has [employer], gas, oil, or water company threatened to [...] often do you attend chur ch or congregation services? Never 09/19/2024 Do you belong to any clubs o r organizations such as jewish groups, unions, fraternal or athletic groups, or [...] any time in the past 12 m [facility], were you homeless or living in a retirement (including now)? No 09/19/2024 Personal Safety Answer Date Recorded Have you ever been in or are you currently in a harmful physical or emotional relationship or is someone making you feel afraid or unsafe? 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
--- OUTSIDE RECORDS SUMMARY | 2024-12-25 11:04 | XMS_ITS | Encounter Summary ---
Author Organization [facility] Care Team Providers Care Nib Adjuster Name Role Phone ROX Bridges Jr., Raffaele Booker Primary Care Provide r Gabby Lai MD Unavailable Vanessa Freeman MD Unavailable [phone] Encounter Details Date Type Department Care Team (Latest Contact Info) Description 11/14/2015 Orders Only [facility] CLINCONV Provider, MD Verónica [address] [place] [address] Social History Tobacco Use Types Packs/Day Years Used Date Smoking Tobacco: Never Assessed Comments Unknown Sex and Gender Information Value Date Recorded Sex Assigned at Not on file Legal Sex Female 7:37 PM ROUTE DELIVERY DRIVER Gender Identity Female 03/11/2021 1:36 PM ROUTE DELIVERY DRIVER Sexual Orientation Straight 03/11/2021 1: 36 PM ROUTE DELIVERY DRIVER documented as of this encounter Plan of [...] documented as of this encounter Care Teams Nib Adjuster Relationship Specialty Start Date [place] [address] [address] PCP - General 06/21/18 Gabby Lai MD [address] [facility] [address] Consulting Physician Pain Management 12/08/23 Vanessa Freeman MD [address] [place] [address] Referring Physician Family Medicine 12/16/23 documented as of this encounter
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
== END 2024-12-25 15:48 | disposition home or self-care (01) ==
PROVIDERS: Emergency Provider Physician Assistant; PCP Physician Assistant
DX: S16.1XXA Strain of muscle, fascia and tendon at neck level, initial encounter (principal); M48.02 Spinal stenosis, cervical region; M47.816 Spondylosis without myelopathy or radiculopathy, lumbar region; M48.061 Spinal stenosis, lumbar region without neurogenic claudication; I10 Essential (primary) hypertension; Z85.3 Personal history of malignant neoplasm of breast; M19.90 Unspecified osteoarthritis, unspecified site; J44.9 Chronic obstructive pulmonary disease, unspecified; L40.9 Psoriasis, unspecified; G62.9 Polyneuropathy, unspecified; F32.A Depression, unspecified; F41.9 Anxiety disorder, unspecified; F17.210 Nicotine dependence, cigarettes, uncomplicated; Z87.01 Personal history of pneumonia (recurrent); Z90.710 Acquired absence of both cervix and uterus; Z79.84 Long term (current) use of oral hypoglycemic drugs; Z79.82 Long term (current) use of aspirin; Z79.899 Other long term (current) drug therapy; N28.9 Disorder of kidney and ureter, unspecified; V89.2XXA Person injured in unspecified motor-vehicle accident, traffic, initial encounter
CPT/HCPCS: 36415; 70250; 72125; 72128; 72131; 72148; 73030; 80048; 81003; 85025; 85610; 85730; 99284; A9270